=== PATIENT | female | born 1975 | race Caucasian/White ===

== ENCOUNTER → 2020-03-19 09:09 | Outpatient (REF) | payer OTHER, SELFPAY ==
--- NOTE | 2020-03-19 09:15 | CA_ITS ---
Acquisition Time: 2020-03-19 09:30:32 Total Exercise Time: 00:10:01 Test Indications: Dyspnea Medications: SEE H Protocol: EILEEN Max HR: 164 BPM 92% of Pred: 178 BPM Max BP: 138/068 mmHG Max Work Load: 11.7 METS Exercsie stress test using Eileen protocol, total of 10 min 1 sec. METS 11.7. Tolerated well, denies any anginal sx. EKG without any arrhythmias, no ischemic changes. Normotensive response to exercise. Test reviewed with Dr. Casiano Referred By: Devendra Casiano Overread By: Apolonia Otoole
--- NOTE | 2020-03-19 14:00 | CA_ITS ---
Transthoracic Echocardiogram Patient (Last, First, Middle): Valery Morales, Gender: Female Date of : 1975 Age: 44 Procedure Date: 03/19/2020 Procedure Type: Transthoracic Echocardiogram Location: OP Height: 162.56 cm Weight: 57.61 kg BSA: 1.61 m2 Heart Rate: bpm BP: 110 / 70 mmHg Fleet Sales Associate: CELENA Referring MD: Devendra Casiano MD Symptoms: RO7.2 Precordial Chest pain,R06.02 Shortness of breath Study Quality: Good ECG Rhythm: Sinus Conclusions: - The left ventricular systolic function is low normal. The visually estimated ejection fraction is between 50-55%. - No obvious valvular pathology seen on this study. Findings Left Ventricle Normal left ventricular cavity size. There is normal left ventricular wall thickness. The left ventricular systolic function is low normal. The visually estimated ejection fraction is between 50-55%. There is no evidence of regional wall motion abnormalities. Diastolic function is normal for age. Right Ventricle Normal right ventricular cavity size and systolic function. Atria Both atria are normal in size. Aortic Valve There is a normal trileaflet aortic valve. There is no aortic valve stenosis. There is no aortic valve regurgitation. Mitral Valve The mitral valve appears normal. There is no mitral valve regurgitation. There is no mitral valve stenosis. Pulmonic Valve The pulmonic valve was not well visualized. Tricuspid Valve Normal tricuspid valve structure. There is trace tricuspid valve regurgitation. The pulmonary artery systolic pressure is normal. Great Vessels The aortic annulus, sinuses of valsalva, and asc aorta are normal in size. Venous The inferior vena cava is normal in size and collapses greater than 50% with inspiration. Pericardium/Pleural There is no evidence of pericardial effusion. Prior Study Comparison No prior study available for comparison. Recommendations, Care & Conclusions No obvious valvular pathology seen on this study. Measurements 2D Linear Measurements IVSd: 0.89 0.6-0.9/0.6-1.0 cm LVIDd: 4.33 3.9-5.3/4.2-5.9 cm LVIDs: 3.23 2.0-3.6 cm LVPWd: 0.73 0.7-1.1 cm Ao Root: 2.86 2.1-3.5 cm LV Mass: 135.37 67-162/88-224 g LVOT Diam: 1.92 3.0+(-)1.3 cm Mitral Valve MV Pk E: 0.82 MV PK A: 0.59 MV Decel Time: 91.36 E/A: 1.39 Decel [place]: 8.95 Aortic Valve AoV Pk Alberto: 1.29 AoV Pk Grad: 6.61 LVOT LVOT Pk Alberto: 1.08 LVOT Mn Alberto: 0.74 LVOT VTI: 0.19 LVOT Pk Grad: 4.66 LVOT Mn Grad: 2.47 LVOT Diam: 1.92 LVOT Area: 2.90 Diastolic Function MV Pk E: 0.82 MV Pk A: 0.59 E/A: 1.39 Tricuspid Valve TR Pk Alberto: 2.17 TR Pk Grad: 18.86 RA Press: 3.00 RVSP: 21.00 Great Vessels Aorta Ao Root-2D: 2.86 2.0-3.7 cm Ao Asc: 2.79 2.1-3.4 cm Ao Arch: 2.37 Updated in Other Vendor System with Status of Final Devendra Casiano MD electronically signed on 03/20/2020 1:56:01 PM with status of Final
== END ==
LOC: HO.CARD 09:09
PROVIDERS: Visit Provider Internal Medicine
DX: R07.2 Precordial pain (principal)
CPT/HCPCS: 93306; 93350

== ENCOUNTER → 2020-04-02 14:24 | Outpatient (BNVA) | payer OTHER, SELFPAY | PROVIDERS: PCP Internal Medicine; Referring Provider Internal Medicine; Visit Provider Internal Medicine | DX: Z76.89 Persons encountering health services in other specified circumstances (principal) ==

== ENCOUNTER 2020-04-28 14:57 | Outpatient (REF) | payer OTHER, SELFPAY ==
[2020-04-28 16:35] LABS: Glucose Urine UA NEG (NEG); Leukocyte Esterase Urine NEG (NEG); Nitrite Urine NEG (NEG); Specific Gravity - Urine >= 1.030 (1.005-1.025); Urine Blood 2+ (NEG); Urine Ketones NEG (NEG); Urine Protein TRACE MG/DL (NEG-TRACE)
[2020-04-28 16:36] LABS: Appearance Urine CLOUDY; Color Urine YELLOW
[2020-04-28 16:45] LABS: Bacteria Urine TRACE /LPF; Mucus Urine TRACE /LPF; Squamous Epithelial Cell Urine TRACE /LPF
== END 2020-04-28 14:58 | disposition home or self-care (01) ==
LOC: HO.HMGCLDS 14:57
PROVIDERS: PCP Internal Medicine; Visit Provider Internal Medicine
DX: R30.0 Dysuria (principal)
CPT/HCPCS: 81001

== ENCOUNTER 2020-06-20 07:03 | Outpatient (REF) | payer OTHER, SELFPAY ==
[2020-06-20 11:22] LABS: MANUAL DIFF FLAG NO
[2020-06-20 11:50] LABS: Basophils Percent Auto 0.7 % (0-2); Eosinophils Absolute Auto 0.1 X10*3/uL (0.0-0.4); Eosinophils Percent Auto 2.9 % (0-4); Hematocrit 33.2 % (37-47); Imm Gran Abs Auto 0.01 X10*3/uL (0.00-0.03); Imm Gran Pct Auto 0.2 % (0.0-0.4); Lymphocytes Absolute Auto 1.4 X10*3/uL (1.2-4.9); Lymphocytes Percent Auto 31.3 % (20-40); Mean Corpuscular HGB Conc 30.1 g/dl (31.0-35.0); Mean Corpuscular Hemoglobin 27.1 pg (27.0-33.0); Mean Platelet Volume 10.7 fL (9.4-12.3); Monocytes Absolute Auto 0.3 X10*3/uL (0.1-1.2); Monocytes Percent Auto 6.9 % (2-11); Neutrophils Absolute Auto 2.6 X10*3/uL (2.0-8.3); Platelet Count 312 X10*3/uL (160-400); Red Blood Count 3.69 X10*6/uL (4.20-5.50); Red Cell Distribution Width 14.2 % (11.0-16.0); White Blood Count 4.5 X10*3/uL (4.8-10.8)
[2020-06-20 12:07] LABS: Anion Gap 12 (12-20); Blood Urea Nitrogen 24 mg/dL (9-16); Calcium 8.4 mg/dL (8.4-10.2); Carbon Dioxide 28 mmol/L (22-29); Chloride 106 mmol/L (96-108); Cholesterol 209 mg/dL; Estimated Glomerular Filt Rate > 60; Glucose Fasting 89 mg/dL (60-99); HDL Cholesterol 70 mg/dL; Iron 28 mcg/dL (30-160); LDL Cholesterol Calculated 130 mg/dl; Percent Iron Saturation 7 % (15-50); Potassium 4.5 mmol/l (3.3-5.1); Sodium 141 mmol/L (135-145); Total Iron Binding Capacity 394 mcg/dL (228-428); Triglycerides 46 mg/dL; Unsaturated Iron Binding 366 ug/dL
[2020-06-20 12:35] LABS: Ferritin 3 ng/mL (10-250); TSH reflex Free T4 1.24 mIU/mL (0.32-4.0); Vitamin D 25-OH Total 29.5 ng/mL (>30)
[2020-06-20 14:07] LABS: Glucose Urine UA NEG (NEG); Leukocyte Esterase Urine NEG (NEG); Nitrite Urine NEG (NEG); Specific Gravity - Urine >= 1.030 (1.005-1.025); Urine Blood 3+ (NEG); Urine Ketones NEG (NEG); Urine Protein NEG (NEG-TRACE)
[2020-06-20 14:20] LABS: Appearance Urine TURBID; Color Urine YELLOW
[2020-06-20 14:55] LABS: WBC Urine 0-2 /HPF (0-4)
[2020-06-20 14:56] LABS: Amorphous Sediment Urine 2+ /LPF; Bacteria Urine TRACE /LPF; RBC Urine 0-2 /HPF (0); Squamous Epithelial Cell Urine 3+ /LPF
== END 2020-06-20 07:04 | disposition home or self-care (01) ==
LOC: HO.HMGCLDS 07:03
PROVIDERS: PCP Internal Medicine; Visit Provider Internal Medicine
DX: Z00.01 Encounter for general adult medical examination with abnormal findings (principal); I10 Essential (primary) hypertension; D50.9 Iron deficiency anemia, unspecified; R30.0 Dysuria
CPT/HCPCS: 36415; 80048; 80061; 81001; 81003; 82306; 82728; 83540; 84443; 85025

== ENCOUNTER 2020-09-04 16:20 | Outpatient (REF) | payer OTHER, SELFPAY ==
[2020-09-05 11:45] LABS: Glucose Urine UA NEG (NEG); Leukocyte Esterase Urine NEG (NEG); Nitrite Urine NEG (NEG); PH 5.5 (5.0-8.0); Specific Gravity - Urine >= 1.030 (1.005-1.025); Urine Blood TRACE (NEG); Urine Ketones 5 MG/DL (NEG); Urine Protein NEG (NEG-TRACE)
[2020-09-05 11:47] LABS: Appearance Urine CLOUDY; Color Urine YELLOW
[2020-09-05 12:19] LABS: Bacteria Urine 1+ /LPF; RBC Urine 0-2 /HPF (0); Squamous Epithelial Cell Urine 2+ /LPF
[2020-09-05 12:20] LABS: Oval Fat Bodies Urine NOTED
== END 2020-09-04 16:21 | disposition home or self-care (01) ==
LOC: HO.LAB 16:20
PROVIDERS: Internal Medicine; Visit Provider Nurse Practitioner Family
DX: R30.0 Dysuria (principal)
CPT/HCPCS: 81001; 87086

== ENCOUNTER 2020-12-10 13:34 | Outpatient (REF) | payer OTHER, SELFPAY ==
[2020-12-10 16:21] LABS: MANUAL DIFF FLAG NO
[2020-12-10 16:27] LABS: Glucose Urine UA NEG (NEG); Leukocyte Esterase Urine NEG (NEG); Nitrite Urine NEG (NEG); PH 5.5 (5.0-8.0); Specific Gravity - Urine >= 1.030 (1.005-1.025); Urine Blood NEG (NEG); Urine Ketones NEG (NEG); Urine Protein NEG (NEG-TRACE)
[2020-12-10 16:29] LABS: Basophils Percent Auto 0.3 % (0-2); Eosinophils Absolute Auto 0.1 X10*3/uL (0.0-0.4); Eosinophils Percent Auto 1.3 % (0-4); Hematocrit 32.8 % (37-47); Hemoglobin 9.9 g/dl (12.0-16.0); Imm Gran Abs Auto 0.01 X10*3/uL (0.00-0.03); Imm Gran Pct Auto 0.2 % (0.0-0.4); Immature Retic Fraction 16.8 % (3.0-15.9); Lymphocytes Absolute Auto 1.4 X10*3/uL (1.2-4.9); Lymphocytes Percent Auto 23.2 % (20-40); Mean Corpuscular HGB Conc 30.2 g/dl (31.0-35.0); Mean Corpuscular Hemoglobin 25.8 pg (27.0-33.0); Mean Corpuscular Volume 85.4 fL (80-98); Mean Platelet Volume 10.5 fL (9.4-12.3); Monocytes Absolute Auto 0.3 X10*3/uL (0.1-1.2); Monocytes Percent Auto 5.3 % (2-11); Neutrophils Absolute Auto 4.3 X10*3/uL (2.0-8.3); Neutrophils Percent Auto 69.7 % (45-73); Platelet Count 307 X10*3/uL (160-400); Red Blood Count 3.84 X10*6/uL (4.20-5.50); Red Cell Distribution Width 15.2 % (11.0-16.0); Retic HGB Equivalent 27.9 pg (30.0-35.0); Reticulocyte Percent 1.3 % (0.5-1.8); Reticulocytes Absolute 0.049 X10*6/uL (0.026-0.095); White Blood Count 6.2 X10*3/uL (4.8-10.8)
[2020-12-10 16:32] LABS: Appearance Urine CLEAR; Color Urine YELLOW
[2020-12-10 16:52] LABS: Alanine Aminotransferase 14 U/L (0-31); Albumin Level 4.2 g/dL (3.5-5.0); Alkaline Phosphatase 61 U/L (39-117); Anion Gap 14 (12-20); Aspartate Amino Transferase 15 U/L (5-31); Bilirubin Total 0.3 mg/dL (0.0-1.0); Blood Urea Nitrogen 24 mg/dL (9-16); Calcium 9.5 mg/dL (8.4-10.2); Carbon Dioxide 24 mmol/L (22-29); Chloride 105 mmol/L (96-108); Estimated Glomerular Filt Rate > 60; Glucose Random 140 mg/dL (60-115); Iron 29 mcg/dL (30-160); Percent Iron Saturation 7 % (15-50); Potassium 4.1 mmol/L (3.3-5.1); Sodium 139 mmol/L (135-145); Total Iron Binding Capacity 416 mcg/dL (228-428); Unsaturated Iron Binding 387 ug/dL
[2020-12-10 17:14] LABS: Ferritin 4 ng/mL (10-250); TSH reflex Free T4 0.81 uIU/mL (0.32-4.0); Vitamin D 25-OH Total 39.3 ng/mL (>30)
[2020-12-10 17:18] LABS: Vitamin B12 617 pg/mL (200-900)
== END 2020-12-10 13:35 | disposition home or self-care (01) ==
LOC: HO.HMGCLDS 13:34
PROVIDERS: PCP Internal Medicine; Visit Provider Nurse Practitioner Family
DX: R53.83 Other fatigue (principal)
CPT/HCPCS: 36415; 80053; 81003; 82306; 82607; 82728; 83540; 84443; 85025; 85045

== ENCOUNTER → 2021-02-10 14:19 | Outpatient (BNVA) | payer OTHER, SELFPAY | PROVIDERS: PCP Internal Medicine | DX: R32 Unspecified urinary incontinence (principal) | CPT/HCPCS: 51798 ==

== ENCOUNTER → 2021-03-11 12:39 | Outpatient (BNVA) | payer OTHER, SELFPAY | PROVIDERS: PCP Internal Medicine ==

== ENCOUNTER 2021-09-03 09:33 | Outpatient (REF) | payer OTHER, SELFPAY ==
[2021-09-03 11:18] LABS: MANUAL DIFF FLAG NO
[2021-09-03 11:30] LABS: Basophils Percent Auto 0.4 % (0-2); Eosinophils Absolute Auto 0.1 X10*3/uL (0.0-0.4); Eosinophils Percent Auto 1.2 % (0-4); Hematocrit 32.3 % (37.0-47.0); Hemoglobin 9.6 g/dl (12.0-16.0); Imm Gran Abs Auto 0.01 X10*3/uL (0.00-0.03); Imm Gran Pct Auto 0.2 % (0.0-0.4); Lymphocytes Absolute Auto 1.1 X10*3/uL (1.2-4.9); Lymphocytes Percent Auto 20.8 % (20-40); Mean Corpuscular HGB Conc 29.7 g/dl (31.0-35.0); Mean Corpuscular Hemoglobin 24.8 pg (27.0-33.0); Mean Corpuscular Volume 83.5 fL (80.0-98.0); Mean Platelet Volume 10.7 fL (9.4-12.3); Monocytes Absolute Auto 0.4 X10*3/uL (0.1-1.2); Monocytes Percent Auto 7.7 % (2-11); Neutrophils Absolute Auto 3.5 x10*3/uL (2.0-8.3); Neutrophils Percent Auto 69.7 % (45-73); Platelet Count 322 X10*3/uL (160-400); Red Blood Count 3.87 X10*6/uL (4.20-5.50); Red Cell Distribution Width 16.2 % (11.0-16.0)
[2021-09-03 12:10] LABS: Ferritin 7 ng/mL (10-250)
[2021-09-03 12:15] LABS: Alanine Aminotransferase 16 U/L (0-31); Alkaline Phosphatase 49 U/L (39-117); Aspartate Amino Transferase 14 U/L (5-31); Bilirubin Direct < 0.2 mg/dL (0.0-0.5); Bilirubin Total 0.2 mg/dL (0.0-1.0); Lipase 17 U/L (8-78); Total Protein 6.8 g/dL (6.5-8.0)
[2021-09-03 12:27] LABS: Iron 27 mcg/dL (30-160); Percent Iron Saturation 7 % (15-50); Total Iron Binding Capacity 410 mcg/dL (228-428); Unsaturated Iron Binding 383 ug/dL
== END 2021-09-03 09:34 | disposition home or self-care (01) ==
LOC: HO.HMGCLDS 09:33
PROVIDERS: Internal Medicine; Visit Provider Internal Medicine
DX: R10.11 Right upper quadrant pain (principal); R10.12 Left upper quadrant pain; D50.9 Iron deficiency anemia, unspecified
CPT/HCPCS: 36415; 80076; 82728; 83540; 83690; 85025

== ENCOUNTER 2021-09-07 13:23 | Day surgery (SDC) | payer OTHER, SELFPAY ==
--- NOTE | 2021-09-04 09:45 | HO.ANESPROP2 ---
Documented by User: Sarika Scott NP 09/04/21 09:46 HPI - Anesthesia Eval Consult details Narrative: 45yo F for Upper Endoscopy PMFSH Active Problems Active Problems: All Active Problems (Updated 02/10/21 @ 16:29 by ELO Becerril) Urinary incontinence (Acute) Fatigue (Acute) Dysuria (Acute) Recurrent major depression in remission (Acute) Annual visit for general adult medical examination with abnormal findings (Acute) Vitamin D deficiency (Acute) Iron deficiency anemia (Acute) SOB (shortness of breath) (Acute) Precordial chest pain (Acute) Past Medical History Medical History Annual visit for general adult medical examination with abnormal findings Iron deficiency anemia Recurrent major depression in remission Urinary incontinence Vitamin D deficiency Family History Family History Father Bipolar 1 disorder High cholesterol Diabetes mellitus Mother No problems noted. Surgical History Surgical History History of loop electrical excision procedure (LEEP) Social History Social History Alcohol intake: current Patient Tobacco Use Status: Never used Tobacco Are you DNR?: No Advance Directives: No Advance Directives Information Provided: Yes Patient : No Meds Allergies Allergy/AdvReac Type Severity Reaction Status Date / Time tree nut Allergy Severe Anaphylaxis Verified 09/02/21 11:22 hyoscyamine Allergy Intermediate itchy Verified 09/02/21 11:22 throat/ears/nose Home Medications Medication Instructions Recorded Confirmed Last Taken Type aripiprazole 2 mg tablet 2 mg PO DAILY 04/02/20 09/02/21 09/07/21 History bupropion HCl 300 mg 24 hr tablet, 300 mg PO DAILY 04/02/20 09/02/21 09/07/21 History extended release fluoxetine 20 mg capsule 20 mg PO DAILY 04/02/20 09/02/21 09/07/21 History lamotrigine 25 mg tablet mg PO 06/26/20 12/02/20 Unknown History lamotrigine 100 mg tablet 100 mg PO DAILY 02/10/21 09/02/21 09/07/21 History Exam Exam Date and Time: September 04, 2021 3531 Narrative Narrative: ECHO 03/2020 Conclusions: - The left ventricular systolic function is low normal.? The ? ? visually estimated ejection fraction is between 50-55%.? - No obvious valvular pathology seen on this study.? Stress 03/2020 Protocol: CHANO ? Max HR: 164 BPM? 92% of? Pred: 178 BPM Max BP: 138/068 mmHG Max Work Load: 11.7 METS ? Exercsie stress test using Chano protocol, total of 10 min 1 sec.? METS 11.7. ?Tolerated well, denies any anginal sx.? EKG without any arrhythmias, no ?ischemic changes.? Normotensive response to exercise.? Test reviewed with Dr. Conti Assessment and Plan Assessment Anesthesia Assessment: Chart Reviewed Documented by User: Joe Paiz MD 09/07/21 21:18 HPI - Anesthesia Eval Consult details Narrative: 45yo F for Upper Endoscopy stress test year ago , no ischemia PMFSH Past Medical History Medical History Annual visit for general adult medical examination with abnormal findings Iron deficiency anemia Recurrent major depression in remission Urinary incontinence Vitamin D deficiency Functional capacity: independent ambulation Family History Family History Father Bipolar 1 disorder High cholesterol Diabetes mellitus Mother No problems noted. Family history of problems with anesthesia: No Surgical History Surgical History History of loop electrical excision procedure (LEEP) History of Problems with Anesthesia: No Social History Social History Alcohol intake: current Patient Tobacco Use Status: Never used Tobacco Are you DNR?: No Advance Directives: No Advance Directives Information Provided: Yes Patient : No Meds Allergies Allergy/AdvReac Type Severity Reaction Status Date / Time tree nut Allergy Severe Anaphylaxis Verified 09/02/21 11:22 hyoscyamine Allergy Intermediate itchy Verified 09/02/21 11:22 throat/ears/nose Home Medications Medication Instructions Recorded Confirmed Last Taken Type aripiprazole 2 mg tablet 2 mg PO DAILY 04/02/20 09/02/21 09/07/21 History bupropion HCl 300 mg 24 hr tablet, 300 mg PO DAILY 04/02/20 09/02/21 09/07/21 History extended release fluoxetine 20 mg capsule 20 mg PO DAILY 04/02/20 09/02/21 09/07/21 History lamotrigine 25 mg tablet mg PO 06/26/20 12/02/20 Unknown History lamotrigine 100 mg tablet 100 mg PO DAILY 02/10/21 09/02/21 09/07/21 History Exam Airway Mallampati Class: II TM Dist: >3cm Neck ROM: Full Loose/Missing/Broken Teeth: Yes (Crowns ) Heart: rrr Lungs: b/l breath sounds Assessment and Plan Assessment Anesthesia Assessment: Anesthesia Plan Discussed Final Anesthetic Review Family History of Problems with Anesthesia: No History of Problems with Anesthesia: No NPO: Yes ASA Class: II Final Preanesthetic Review: Meds/Allgs Chart Reviewed, Consent Obtained/Reviewed and Anes Risks/Benef Reviewed Patient Risk: Intermediate Procedure Risk: Intermediate Anesthetic Plan Anesthetic Plan: MAC: Disposition: Standard PACU
[2021-09-07 10:29] VITALS: BMI 25.9
[2021-09-07 13:33] VITALS: BP 126/78; PULSE 78; RESP 17; TEMP 36.1; O2SAT 99
[2021-09-07 13:54] LABS: UPreg QC Valid YES; Urine Pregnancy NEGATIVE (NEGATIVE)
[2021-09-07] MEDS: Lactated Ringers 1,000 ML 100 ML IVCONT (13:58)
[2021-09-07 16:01] VITALS: BP 100/56; PULSE 104; RESP 12; TEMP 36.2; O2SAT 92
--- NOTE | 2021-09-07 16:02 | PM.OP ---
Brief Operative Note Date of Service: 09/07/21 Pre-op diagnosis: Abdominal pain Post-op diagnosis: other (Small hiatal hernia) Procedure: EGD with biopsies Surgeon: Leo Blandon Anesthesia: MAC Was an Maori Liaison Adviser used for this Procedure?: No Estimated blood loss (mL): 2.0 Pathology: other (A. Descending duodenum B. Gastric antrum) Condition: stable Disposition: PACU
[2021-09-07 16:16] VITALS: BP 107/69; PULSE 101; RESP 16; O2SAT 100
[2021-09-07 16:31] VITALS: BP 128/81; PULSE 94; RESP 20; TEMP 37.4; O2SAT 97
--- NOTE | 2021-09-08 02:11 | OP_ITS ---
SURGEON: Leo Blandon MD INDICATIONS: The patient presents for evaluation of abdominal pain. Full consent has been obtained from her for this, including risks of bleeding and perforation. PREOPERATIVE DIAGNOSIS: Abdominal pain. POSTOPERATIVE DIAGNOSIS: Abdominal pain, small hiatal hernia, rule out celiac disease, rule out gastritis, and/or Helicobacter pylori. PROCEDURE PERFORMED: Esophagogastroduodenoscopy with biopsies. ESTIMATED BLOOD LOSS: COMPLICATIONS: ANESTHESIA: Medication used, monitored anesthesia care. ASSISTANTS: SPECIMENS: DESCRIPTION OF PROCEDURE: The patient was placed in the left lateral decubitus position. The Olympus video gastroscope was passed in the posterior oropharynx and upper esophagus under direct vision. The scope was passed slowly to the distal esophagus. The gastroesophageal junction appeared normal at 38 cm. There was no sign of any esophagitis nor [place] mucosa. The scope entered into the stomach. There was a small hiatal hernia. The scope was advanced to pylorus, and the duodenum was cannulated to the descending portion. The duodenum including the bulb appeared normal without mass or ulceration. Biopsies were obtained from the 2nd and the 3rd portions of duodenum. The scope was withdrawn back into the stomach. The gastric antrum and body appeared normal with good peristalsis. Biopsies were obtained. The scope was retroflexed visualizing the proximal stomach carefully, which appeared normal, without any sign of mass or ulceration. The scope was straightened. The scope was withdrawn back to the esophagus. The esophageal mucosa appeared normal. The scope was withdrawn from the patient. She tolerated the procedure well and was returned to the recovery area in stable condition. IMPRESSION: Small hiatal hernia, otherwise normal upper endoscopy. Rule out celiac disease, rule out gastritis and H pylori. PLAN: The results of the biopsy will be checked. At this point, I did not see anything that would account for her recent episode of abdominal pain. She is scheduled for an abdominal ultrasound next week. Recent laboratories including a liver profile, CBC, and lipase were normal. She will be seen in followup after the ultrasound for further evaluation. This has been discussed with her . MD CLOVIS Sagastume/SEKOU / [id number] MTDD
== END 2021-09-07 16:51 | disposition home or self-care (01) ==
PROVIDERS: Nurse Practitioner; Visit Provider Internal Medicine
PROC: 0DJ08ZZ Inspection of Upper Intestinal Tract, Via Natural or Artificial Opening Endoscopic (ICD-10-PCS; CPT 43235; principal; 2021-09-07 14:30)
DX: R10.13 Epigastric pain (principal); K44.9 Diaphragmatic hernia without obstruction or gangrene; D50.9 Iron deficiency anemia, unspecified; E55.9 Vitamin D deficiency, unspecified; Z79.899 Other long term (current) drug therapy
CPT/HCPCS: 43239; 81025; 88305; 88342; J2250

== ENCOUNTER 2021-09-17 08:07 | Outpatient (REF) | payer OTHER, SELFPAY ==
--- NOTE | ~2021-09-17 | US_ITS ---
EXAMINATION: US ABDOMEN COMPLETE CLINICAL INFORMATION: Right upper quadrant pain. COMPARISON: None TECHNIQUE: Real-time imaging of the abdominal viscera. FINDINGS: PANCREAS: Normal. ABDOMINAL AORTA: The proximal, mid, and distal segments are normal in caliber. INFERIOR VENA CAVA: Visualized portions are normal. LIVER: The liver appears coarse and heterogeneous. The liver is normal in size. The liver contour is normal. Parenchymal echogenicity is normal. No focal hepatic lesion. There is no intrahepatic biliary duct dilatation seen. Normal upper pedal flow seen right portal vein. GALLBLADDER: Normal. The gallbladder is physiologically distended without evidence of stones, sludge, polyps, wall thickening or pericholecystic fluid. COMMON BILE DUCT: Normal in caliber measuring 0.2 cm in diameter. RIGHT KIDNEY: There is mild pelvic fullness.. No renal calculi or focal parenchymal lesions. The kidney measures 9.9 cm in maximum dimension. LEFT KIDNEY: Normal. No hydronephrosis. No renal calculi or focal parenchymal lesions. The kidney measures 9.7 cm in maximum dimension. SPLEEN: Normal. The spleen measures 9.0 cm in maximum dimension. FREE FLUID: None. US/US abdomen complete IMPRESSION: Coarse, echogenic and heterogeneous liver but no focal lesion seen. Mild right renal pelvic fullness. Rest of the abdominal ultrasound is unremarkable.
== END 2021-09-17 08:08 | disposition home or self-care (01) ==
LOC: HO.US 08:07
PROVIDERS: Visit Provider Internal Medicine
DX: R10.11 Right upper quadrant pain (principal)
CPT/HCPCS: 76700

== ENCOUNTER 2021-10-08 11:16 | Outpatient (REF) | payer OTHER, SELFPAY ==
[2021-10-08 12:47] LABS: Prothrombin Time 11.9 SEC (9.9-13.0)
[2021-10-13 17:32] LABS: FIB-ALT 13 U/L (6-29); FIB-Alpha-2-Macroglobulin 166 mg/dL (106-279); FIB-Apolipoprotein A1 186 mg/dL (101-198); FIB-GGT 9 U/L (3-55); FIB-Haptoglobin 124 mg/dL (43-212); FIB-Total Bilirubin 0.2 mg/dL (0.2-1.2); Liver Fibrosis Score 0.02; Liver Fibrosis Stage F0; Nec Inflam Act Grade A0; Nec Inflam Act Score 0.03
== END 2021-10-08 11:17 | disposition home or self-care (01) ==
LOC: HO.HMGCLDS 11:16
PROVIDERS: PCP Internal Medicine; Visit Provider Internal Medicine
DX: R93.2 Abnormal findings on diagnostic imaging of liver and biliary tract (principal)
CPT/HCPCS: 36415; 81596; 85610

== ENCOUNTER 2021-10-20 10:01 | Outpatient (REF) | payer OTHER, SELFPAY ==
--- NOTE | ~2021-10-20 | US_ITS ---
EXAMINATION: US ABDOMEN LIMITED WITH LIVER ELASTOGRAPHY CLINICAL INFORMATION: Abnormal hepatic ultrasound COMPARISON: September 17, 2021 TECHNIQUE: Real-time imaging of the abdominal viscera. Noninvasive ultrasound liver fibrosis assessment is performed using Faisal ElastPQ point quantification shear wave elastography (2D-SWE) with a C5-2 MHz transducer. Multiple elastography samples are obtained. FINDINGS: PANCREAS: Normal. The visualized pancreatic head and body are normal in appearance. The remainder of the pancreas is obscured from visualization by the overlying bowel gas. LIVER: There is question of some mild coarsening of the echogenicity of the parenchyma which can be seen in hepatocellular disease.. No focal mass or intrahepatic bile duct dilatation is seen. The right lobe measures 15.0 cm in length. The left lobe measures 11.3 cm in length. Portal flow is hepatopedal Shear wave liver elastography median stiffness is 1.18 m/s (reference: normal median stiffness is 1.3 m/s or less). IQR/median stiffness to assess sampling precision is 0.03 (reference: good quality data set is IQR/median stiffness of 0.15 or less). GALLBLADDER: Normal. The gallbladder is physiologically distended without evidence of stones, sludge, polyps, wall thickening or pericholecystic fluid. COMMON BILE DUCT: Normal in caliber measuring 0.2 cm in diameter. RIGHT KIDNEY: Normal. No renal calculi or focal parenchymal lesions. There is mild pelvic fullness but without caliectasis. The kidney measures 10.5 cm in maximum dimension. FREE FLUID: None. US/US abdomen marcum w elastography IMPRESSION: 1. No significant abnormality appreciated other than some question mild coarsening of hepatic echotexture. 2. Liver elastography: Measurements are consistent with a high probability of normal liver stiffness. REFERENCE: Society of Radiologists in Ultrasound Liver Stiffness Thresholds (2020): LIVER STIFFNESS THRESHOLDS: *Liver Stiffness equal or less than 1.3 m/s: High probability of being normal. *Liver Stiffness less than 1.7 m/s: In the absence of other known clinical signs, rules out compensated advanced chronic liver disease. *Liver Stiffness 1.7-2.1 m/s: Suggestive of compensated advanced chronic liver disease but need further test for confirmation. *Liver Stiffness over 2.1 m/s: Rules in compensated advanced chronic liver disease. *Liver Stiffness over 2.4 m/s: Suggestive of clinically significant portal hypertension. QUALITY OF DATA SET: *IQR/Median value equal or less than 0.15 implies a quality data set. *IQR/Median value over 0.15 implies a poor quality data set. SIGNIFICANT CHANGE FROM PRIOR EXAM: Significant change if liver stiffness measurement is 10% or greater from prior exam. OTHER CONSIDERATIONS: The stage of liver fibrosis may be overestimated in the setting of acute hepatitis, liver inflammation, elevated liver function tests, hepatic vascular congestion, obstructive cholestasis, non-fasting state, and infiltrative diseases such as amyloidosis and lymphoma. In some patients with NAFLD, the liver stiffness thresholds for compensated advanced chronic liver disease may be lower. In causes other than viral hepatitis and NAFLD, liver stiffness thresholds are not well established.
== END 2021-10-20 10:02 | disposition home or self-care (01) ==
LOC: HO.US 10:01
PROVIDERS: Visit Provider Internal Medicine
DX: R93.2 Abnormal findings on diagnostic imaging of liver and biliary tract (principal)
CPT/HCPCS: 76705; 76981

== ENCOUNTER → 2021-10-22 09:28 | Outpatient (BNVA) | payer OTHER, SELFPAY | PROVIDERS: PCP Internal Medicine | DX: R32 Unspecified urinary incontinence (principal) | CPT/HCPCS: 51798 ==

== ENCOUNTER 2021-11-16 09:44 | Outpatient (REF) | payer OTHER, SELFPAY ==
[2021-11-16 11:18] LABS: Prothrombin Time 11.3 SEC (9.9-13.0)
== END 2021-11-16 09:45 | disposition home or self-care (01) ==
LOC: HO.LAB 09:44
PROVIDERS: PCP Internal Medicine; Visit Provider Internal Medicine
DX: R93.2 Abnormal findings on diagnostic imaging of liver and biliary tract (principal)
CPT/HCPCS: 36415; 85610

== ENCOUNTER 2022-04-21 10:54 | Outpatient (REF) | payer OTHER, SELFPAY | END 2022-04-21 10:55 | disposition home or self-care (01) | LOC: HO.LAB 10:54 | PROVIDERS: PCP Internal Medicine; Visit Provider Urology | DX: N39.0 Urinary tract infection, site not specified (principal); N32.81 Overactive bladder | CPT/HCPCS: 51798; 87086; 87088; 87186 ==

== ENCOUNTER 2022-05-05 09:31 | Outpatient (REF) | payer OTHER, SELFPAY ==
[2022-05-05 13:52] LABS: Appearance Urine Clear; Color Urine Yellow; Glucose Urine UA Negative (Negative); Leukocyte Esterase Urine Negative (Negative); Nitrite Urine Negative (Negative); Specific Gravity - Urine 1.025 (1.005-1.025); Urine Blood Negative (Negative); Urine Ketones Negative (Negative); Urine Protein Negative (Neg-Trace)
[2022-05-05 13:57] LABS: Bacteria Urine Trace (None Seen); Hyaline Casts Urine 0-2 /LPF (0-2); RBC Urine 0-2 /HPF (0-2); WBC Urine 0-5 /HPF (0-5)
== END 2022-05-05 09:32 | disposition home or self-care (01) ==
LOC: HO.HMGCLDS 09:31
PROVIDERS: PCP Internal Medicine; Visit Provider Urology
DX: N39.0 Urinary tract infection, site not specified (principal)
CPT/HCPCS: 81001; 87086

== ENCOUNTER 2022-07-02 12:39 | Outpatient (REF) | payer OTHER, SELFPAY | END 2022-07-02 12:40 | disposition home or self-care (01) | LOC: HO.LAB 12:39 | PROVIDERS: PCP Internal Medicine; Visit Provider Urology | DX: N39.0 Urinary tract infection, site not specified (principal) | CPT/HCPCS: 87086; 87088; 87186 ==

== ENCOUNTER → 2022-07-16 14:54 | Outpatient (BNVA) | payer OTHER, SELFPAY | PROVIDERS: PCP Internal Medicine; Visit Provider Urology | DX: N32.81 Overactive bladder (principal) | CPT/HCPCS: 52287; J0585 ==

== ENCOUNTER → 2022-07-30 10:22 | Outpatient (BNVA) | payer OTHER, SELFPAY | PROVIDERS: PCP Internal Medicine; Visit Provider Urology | DX: N39.0 Urinary tract infection, site not specified (principal) | CPT/HCPCS: 51798 ==

== ENCOUNTER 2022-08-18 09:29 | Outpatient (REF) | payer OTHER, SELFPAY ==
[2022-08-18 11:17] LABS: Appearance Urine Clear; Color Urine Yellow; Glucose Urine UA Negative (Negative); Leukocyte Esterase Urine Moderate (2+) (Negative); Nitrite Urine Negative (Negative); UMIC TRIGGER UA YES; Urine Blood Negative (Negative); Urine Ketones Negative (Negative); Urine Protein Negative (Neg-Trace)
[2022-08-18 11:22] LABS: Bacteria Urine 3+ (None Seen); Hyaline Casts Urine 0-2 /LPF (0-2); RBC Urine 0-2 /HPF (0-2); WBC Urine >50 /HPF (0-5)
== END 2022-08-18 09:30 | disposition home or self-care (01) ==
LOC: HO.HMGCLDS 09:29
PROVIDERS: PCP Internal Medicine; Visit Provider Urology
DX: N39.0 Urinary tract infection, site not specified (principal)
CPT/HCPCS: 81001; 87086

== ENCOUNTER → 2022-10-27 09:38 | Outpatient (BNVA) | payer OTHER, SELFPAY | PROVIDERS: PCP Internal Medicine; Visit Provider Urology | DX: N32.81 Overactive bladder (principal); N39.0 Urinary tract infection, site not specified | CPT/HCPCS: 51798 ==

== ENCOUNTER → 2022-12-01 13:21 | Outpatient (BNVA) | payer OTHER, SELFPAY | PROVIDERS: Visit Provider Urology | DX: N32.81 Overactive bladder (principal); N39.0 Urinary tract infection, site not specified | CPT/HCPCS: 51700; 51701; 52000; 52287; J0585 ==

== ENCOUNTER → 2022-12-30 09:00 | Outpatient (BNVA) | payer OTHER, SELFPAY | PROVIDERS: PCP Internal Medicine; Visit Provider Urology | DX: N32.81 Overactive bladder (principal); N39.0 Urinary tract infection, site not specified | CPT/HCPCS: 51798 ==

== ENCOUNTER 2022-12-31 11:52 | Outpatient (REF) | payer OTHER, SELFPAY ==
[2022-12-31 12:11] LABS: MANUAL DIFF FLAG NO
[2022-12-31 12:48] LABS: Basophils Percent Auto 0.4 % (0-2); Eosinophils Absolute Auto 0.1 X10*3/uL (0.0-0.4); Eosinophils Percent Auto 2.9 % (0-4); Hematocrit 31.1 % (37.0-47.0); Hemoglobin 8.7 g/dl (12.0-16.0); Imm Gran Abs Auto 0.01 X10*3/uL (0.00-0.03); Imm Gran Pct Auto 0.2 % (0.0-0.4); Lymphocytes Absolute Auto 1.3 X10*3/uL (1.2-4.9); Lymphocytes Percent Auto 27.2 % (20-40); Mean Corpuscular Hemoglobin 21.3 pg (27.0-33.0); Mean Corpuscular Volume 76.2 fL (80.0-98.0); Mean Platelet Volume 9.7 fL (9.4-12.3); Monocytes Absolute Auto 0.3 X10*3/uL (0.1-1.2); Monocytes Percent Auto 6.7 % (2-11); Neutrophils Absolute Auto 3.1 x10*3/uL (2.0-8.3); Neutrophils Percent Auto 62.6 % (45-73); Platelet Count 422 X10*3/uL (160-400); Red Blood Count 4.08 X10*6/uL (4.20-5.50); Red Cell Distribution Width 16.7 % (11.0-16.0); White Blood Count 4.9 X10*3/uL (4.8-10.8)
[2022-12-31 13:31] LABS: Alanine Aminotransferase 16 U/L (0-31); Albumin Level 4.2 g/dL (3.5-5.0); Alkaline Phosphatase 54 U/L (39-117); Anion Gap 12 (12-20); Aspartate Amino Transferase 16 U/L (5-31); Bilirubin Direct < 0.2 mg/dL (0.0-0.5); Bilirubin Total 0.2 mg/dL (0.0-1.0); Blood Urea Nitrogen 15 mg/dL (9-16); C Reactive Protein 0.32 mg/dL (< or = 0.50); Calcium 8.9 mg/dL (8.4-10.2); Carbon Dioxide 24 mmol/L (22-29); Chloride 105 mmol/L (96-108); Estimated Glomerular Filt Rate > 60; Glucose Random 84 mg/dL (60-115); Lipase 19 U/L (8-78); Potassium 3.8 mmol/L (3.3-5.1); Sodium 137 mmol/L (135-145); Total Protein 7.1 g/dL (6.5-8.0)
[2022-12-31 13:34] LABS: Erythrocyte Sedimentation Rate 13 MM/HR (0-20)
[2022-12-31 14:12] LABS: Amylase 51 U/L (28-100)
== END 2022-12-31 11:53 | disposition home or self-care (01) ==
LOC: HO.LAB 11:52
PROVIDERS: PCP Internal Medicine; Visit Provider Internal Medicine
DX: R10.84 Generalized abdominal pain (principal); R19.7 Diarrhea, unspecified
CPT/HCPCS: 36415; 80048; 80076; 82150; 83690; 85025; 85652; 86140

== ENCOUNTER 2023-01-03 09:28 | Outpatient (REF) | payer OTHER, SELFPAY ==
[2023-01-04 12:52] LABS: Leukocytes Stool Qualitative NEGATIVE (NEGATIVE)
[2023-01-05 09:20] LABS: Adenovirus F 40/41 Not Detected (Not Detect.); Astrovirus Not Detected (Not Detect.); Campylobacter Not Detected (Not Detect.); Cryptosporidium Not Detected (Not Detect.); Cyclospora cayetanensis Not Detected (Not Detect.); E. coli EAEC Not Detected (Not Detect.); E. coli EPEC Not Detected (Not Detect.); E. coli ETEC Not Detected (Not Detect.); E. coli STEC Not Detected (Not Detect.); Entamoeba histolytica Not Detected (Not Detect.); Giardia lamblia Not Detected (Not Detect.); Plesiomonas shigelloides Not Detected (Not Detect.); Salmonella Not Detected (Not Detect.); Shigella sp./EIEC Not Detected (Not Detect.); Vibrio Not Detected (Not Detect.); Vibrio Cholerae Not Detected (Not Detect.); Yersinia enterocolitica Not Detected (Not Detect.)
[2023-01-05 09:21] LABS: Rotavirus A Not Detected (Not Detect.); Sapovirus Not Detected (Not Detect.)
[2023-01-05 09:25] LABS: Norovirus GI/GII Detected (Not Detect.)
[2023-01-11 00:48] LABS: Calprotectin, Fecal 96 mcg/g
== END 2023-01-03 09:29 | disposition home or self-care (01) ==
LOC: HO.LNP 09:28
PROVIDERS: Visit Provider Internal Medicine
DX: R19.7 Diarrhea, unspecified (principal); R10.84 Generalized abdominal pain
CPT/HCPCS: 83993; 87493; 87507; 89055

== ENCOUNTER 2023-01-04 09:11 | Outpatient (REF) | payer OTHER, SELFPAY | END 2023-01-04 09:12 | disposition home or self-care (01) | LOC: HO.LNP 09:11 | PROVIDERS: Visit Provider Internal Medicine | DX: Z13.89 Encounter for screening for other disorder (principal) ==

== ENCOUNTER 2023-04-07 10:04 | Outpatient (REF) | payer OTHER, SELFPAY | END 2023-04-07 10:05 | disposition home or self-care (01) | LOC: HO.LAB 10:04 | PROVIDERS: PCP Internal Medicine; Visit Provider Urology | DX: N39.0 Urinary tract infection, site not specified (principal); N32.81 Overactive bladder | CPT/HCPCS: 51798; 81003; 87086 ==

== ENCOUNTER 2023-04-07 10:04 | Outpatient (AMB) | payer OTHER, SELFPAY ==
--- NOTE | 2023-04-07 10:05 | MHC.OFFVIS ---
Intake Intake Visit Reasons: Botox follow-up Intake Note: Patient presents today for a follow-up on Botox: Meds- Botox, Macrobis & Nitro Allergies to Antibiotic- No Known Allergies Blood Thinner- None PVR- 34 mL Executive Consultant Required: No Accompanied by: Self / Same As Patient Allergies tree nut Allergy (Severe, Verified 04/07/23 10:06) Anaphylaxis hyoscyamine Allergy (Intermediate, Verified 04/07/23 10:06) itchy throat/ears/nose HPI HPI Comments History of Present Illness Details Valery is a 47-year-old female who presents today to the office for a follow-up. 04/07/2023? She is being followed due to overactive bladder. She has been receiving bladder Botox injection in the office. Her last bladder Botox injection 100 units was on 12/01/2022. She states that within the last couple of days she is experiencing more urinary urgency and she wants to get repeat bladder botox injection scheduled. She is prescribed macrobid prophylaxis post sexual intercourse for recurrent UTI's. Bladder scan PVR. 34 mL 04/07/2023: Plan: Will send urine surveillance for culture. Continue Macrobid 100 mg to take after intercourse. We will get authorization for in office bladder Botox injection 100 units. Ordered Bactrim DS and advised the patient to start 2 days before the procedure. Ordered Pyridium 200 mg and advised the patient to start one day before the procedure. [facility] Medical History History of abnormal uterine bleeding Urinary incontinence Recurrent major depression in remission Annual visit for general adult medical examination with abnormal findings Vitamin D deficiency Iron deficiency anemia Surgical History Hx of cystoscopy History of hysteroscopy History of loop electrical excision procedure (LEEP) Family History Father Bipolar 1 disorder High cholesterol Diabetes mellitus Mother No problems noted. Social History Housing: House Alcohol intake: current Patient Tobacco Use Status: Never used Tobacco e-Cigarette/Vaping Use: Never Used Current occupational status: unemployed Cognitive needs: No Hearing needs: No Vision needs: No Review of Systems Const All systems reviewed & are unremarkable except as noted in HPI and below Reports no additional complaints Eyes Reports no additional complaints ENT Reports no additional complaints Card Denies dyspnea Resp Denies cough and Denies dyspnea GI Reports no additional complaints Reports no additional complaints Musc Reports no additional complaints Skin/Breast Denies rash and Denies unusual bruising Neuro Reports no additional complaints Psych Reports no additional complaints Endo Reports no additional complaints Brandon/Lymph Reports no additional complaints Aller/Immun Reports no additional complaints Office Procedures Post Void Residual Post Residual Void Post Void Residual (PVR): 34 [id number] Void Residual by ultrasound Results AMB Urinalysis, Automated UA Leukoctes 0 Ellen/uL Last Edit by Magdiel Irene [facility] on 04/07/23 10:15 UA Nitrite Negative Last Edit by Magdiel Irene [facility] on 04/07/23 10:15 UA Urobilinogen 0.2 mg/dL Last Edit by Magdiel Irene [facility] on 04/07/23 10:15 UA Protein 15 mg/dL Last Edit by Magdiel Irene [facility] on 04/07/23 10:15 UA pH 6.0 Last Edit by Magdiel Irene [facility] on 04/07/23 10:15 UA Blood 0 [place]/uL Last Edit by Magdiel Irene [facility] on 04/07/23 10:15 UA Specific [place] 1.020 Last Edit by Magdiel Irene [facility] on 04/07/23 10:15 UA Ketone Negative Last Edit by Magdiel rIene [facility] on 04/07/23 10:15 UA Bilirubin 0 mg/dL Last Edit by Magdiel Irene [facility] on 04/07/23 10:15 UA Glucose 0 mg/dL Last Edit by Magdiel Irene [facility] on 04/07/23 10:15 Results Reviewed Results Reviewed: Laboratory Last Values Urine pH (Auto) 6.0 04/07/23 10:13 Specific [place] (Auto) 1.020 04/07/23 10:13 Urine Protein (Auto) 15 mg/dL 04/07/23 10:13 Glucose (UA)(Auto) 0 mg/dL 04/07/23 10:13 Urine Ketones (Auto) Negative 04/07/23 10:13 Urine Blood (Auto) 0 [place]/uL 04/07/23 10:13 Urine Nitrite (Auto) Negative 04/07/23 10:13 Urine Bilirubin (Auto) 0 mg/dL 04/07/23 10:13 Urine Urobilinogen (Auto) 0.2 mg/dL 04/07/23 10:13 Leukocyte Esterase (Auto) 0 Ellen/uL 04/07/23 10:13 Assessment & Plan Assessment & Plan (1) Overactive bladder: Code(s): N32.81 - Overactive bladder (2) Frequent UTI: Code(s): N39.0 - Urinary tract infection, site not specified Plan Will send urine surveillance for culture. Continue Macrobid 100 mg to take after intercourse. We will get authorization for in office bladder Botox injection 100 units. Ordered Bactrim DS and advised the patient to start 2 days before the procedure. Ordered Pyridium 200 mg and advised the patient to start one day before the procedure. Orders: Orders Urine Culture Today N39.0 - Urinary tract infection, site not specified AMB Urinalysis Automated Today Z13.9 - Encounter for screening, unspecified AMB Post Void Residual by ultrasound Today N39.8 - Other specified disorders of urinary system Medications: New phenazopyridine (Pyridium) start 1 day prior to botox procedure, 200 mg PO BID 5 days 10 tabs 0RF Changed From sulfamethoxazole-trimethoprim 800-160 mg (Bactrim DS) 1 tab PO BID 9 tabs 0RF To sulfamethoxazole-trimethoprim 800-160 mg (Bactrim DS) start 2 days prior to Botox procedure 1 tab PO BID 5 days 10 tabs 0RF Patient Instructions: The patient had an opportunity to ask questions regarding treatment plan. All questions were answered. Imaging, Laboratory studies and physical exam results were discussed and reviewed in detail. No major barriers to understanding were identified. The patient expressed understanding and agreement with the above treatment plan. The patient is aware they should contact our office by phone for worsening of their current condition or the appearance of new symptoms. Compliance is encouraged with any medications and followup testing that is ordered. It is a privilege to be allowed the opportunity to participate in the urologic care of your patient. If you have any questions or concerns regarding treatment for the above conditions please do not hesitate to contact me. The office telephone contact is [phone]. This note is constructed in part using voice recognition software. While every effort has been made to ensure accuracy dimension stone quarry supervisor errors may have been included. Yours sincerely, James Calderon MD Coding Level of Care Code Est Pt Level 4 (53246) Diagnoses Overactive bladder N32.81 Frequent UTI N39.0 CPT Codes Post Residual Void - PVR CPT Code: 21752-Hsgr Void Residual by ultrasound ([id number])
== END 2023-04-07 10:34 | disposition home or self-care (01) ==
PROVIDERS: PCP Internal Medicine; Visit Provider Urology
DX: N32.81 Overactive bladder (principal); N39.0 Urinary tract infection, site not specified; Z13.9 Encounter for screening, unspecified
CPT/HCPCS: 99214

== ENCOUNTER 2023-05-11 08:37 | Outpatient (AMB) | payer OTHER, SELFPAY ==
--- NOTE | 2023-05-11 08:39 | A.OFFVIS_ITS ---
Intake Intake Visit Reasons: CYSTO/BOTOX INJECTION Intake Note: Patient presents today for a CYSTOSCOPY/BOTOX INJECTION Procedure: Allergies to Antibiotic: No Known Allergies Blood Thinner: None Disposable Uro-G Cystoscope Injection Cannula: Lot: [id number] Exp: 07/05/2023 Tanning Drum Operator Required: No Accompanied by: Self / Same As Patient Allergies tree nut Allergy (Severe, Verified 05/11/23 08:39) Anaphylaxis hyoscyamine Allergy (Intermediate, Verified 05/11/23 08:39) itchy throat/ears/nose HPI HPI Comments History of Present Illness Details Valery is a 47-year-old female who presents today to the office for a follow-up. 05/11/2023-- She is followed today for cystoscopy procedure/botox injection. She has been on pyridium and Bactrim 2 dys prior and will complete a 5 day course of bactrim. Botox 100 units bladder injection today. 05/11/2023: Plan: FU with nurse for anton dasilva PVR in one month FU with me in 4 months [facility] Medical History History of abnormal uterine bleeding Urinary incontinence Recurrent major depression in remission Annual visit for general adult medical examination with abnormal findings Vitamin D deficiency Iron deficiency anemia Surgical History Hx of cystoscopy History of hysteroscopy History of loop electrical excision procedure (LEEP) Family History Father Bipolar 1 disorder High cholesterol Diabetes mellitus Mother No problems noted. Social History Housing: House Alcohol intake: current Patient Tobacco Use Status: Never used Tobacco e-Cigarette/Vaping Use: Never Used Current occupational status: unemployed Cognitive needs: No Hearing needs: No Vision needs: No Review of Systems Const All systems reviewed & are unremarkable except as noted in HPI and below Reports no additional complaints Eyes Reports no additional complaints ENT Reports no additional complaints Card Denies dyspnea Resp Denies cough and Denies dyspnea GI Reports no additional complaints Reports no additional complaints Musc Reports no additional complaints Skin/Breast Denies rash and Denies unusual bruising Neuro Reports no additional complaints Psych Reports no additional complaints Endo Reports no additional complaints Brandon/Lymph Reports no additional complaints Aller/Immun Reports no additional complaints Office Procedures Cystoscopy Consent Discussed risk and benefit or proposed procedure with the patient. Information consent for procedure given to the patient. Discussed technical aspects, risks, benefits and alternatives in full. Addressed all of the patient's questions and concerns regarding the procedure. The patient demonstrated knowledge and understanding. They wish to proceed with this procedure. Preparation The patient was prepped in the usual manner. A academic intern was present and in the room. Genitalia was prepped with betadine solution in a sterile manner. Lidocaine Jelly 2% was placed into the urethra and 16Fr flexible Olympus cystoscope was inserted into the meatus after adequate lubrication. Procedure PREOP DIAGNOSIS: OAB POSTOP DIAGNOSIS: OAB PROCEDURE: CYSTOSCOPY, BLADDER BOTOX INJECTION 100 UNITS SURGEON: James Calderon MD ANESTHESIA: Local Details of procedure: Consent obtained. Time-out was done per protocol. 2% lidocaine urojet was passed transurethrally into the bladder. A flexible disposible cystoscope was placed transurethrally into the bladder. The right and left ureteral orifices were visualized. There were no suspicious bladder lesions seen. The Botox 100 units was mixed with 10 cc of normal saline and injected transurethrally 1 cc per injection into the posterior bladder wall. The cystoscope was removed. The patient tolerated the procedure well. Complications: None Drains: none prepped for cysto/botox inj with lido urojet and botox cockatail : 20 mls bupivicaine, 5 mls lidocaine 2% and 2 lidocaine urojets 38447 - Botox Injection, urethra or bladder DISPOSABLE SCOPE URO-N NEEDLE SCOPE Procedure code (CPT) selection complete Office Meds lidocaine HCl 2 % mucosal jelly in applicator Performing Provider: James Calderon MD [facility] Administered by: Ivette Harrington RN on 05/11/23 08:51 Dose Route Admin Location Dispensed Lot Number Expiration Date NDC New Vehicle Sales Consultant 10 mL intra-urethral 20 mL naproxen 500 mg tablet Performing Provider: James Calderon MD [facility] Administered by: Ivette Harrington RN on 05/11/23 08:51 Dose Route Admin Location Dispensed Lot Number Expiration Date NDC New Vehicle Sales Consultant 500 mg PO 1 tab Assessment & Plan Assessment & Plan (1) Overactive bladder: Code(s): N32.81 - Overactive bladder Plan: FU with nurse for bladder scan PVR in one month FU with me in 4 months Orders: Orders AMB Cystoscopy Today N32.81 - Overactive bladder Patient Instructions: The patient had an opportunity to ask questions regarding treatment plan. All questions were answered. Laboratory studies and physical exam results were discussed and reviewed in detail. No major barriers to understanding were identified. The patient expressed understanding and agreement with the above treatment plan. The patient is aware they should contact our office by phone for worsening of their current condition or the appearance of new symptoms. Compliance is encouraged with any medications and followup testing that is ordered. It is a privilege to be allowed the opportunity to participate in the urologic care of your patient. If you have any questions or concerns regarding treatment for the above conditions please do not hesitate to contact me. The office telephone contact is [phone]. This note is constructed in part using voice recognition software. While every effort has been made to ensure accuracy instrument shop supervisor errors may have been included. Yours sincerely, James Calderon MD Coding Level of Care Code Procedure Only Diagnoses Overactive bladder N32.81 CPT Codes Cystoscopy - CPT: 15265 - Botox Injection, urethra or bladder ([id number])
== END 2023-05-11 09:36 | disposition home or self-care (01) ==
PROVIDERS: PCP Internal Medicine; Visit Provider Urology
DX: N32.81 Overactive bladder (principal)
CPT/HCPCS: 52287

== ENCOUNTER → 2023-05-11 08:37 | Outpatient (BNVA) | payer OTHER, SELFPAY | PROVIDERS: PCP Internal Medicine; Visit Provider Urology | DX: N32.81 Overactive bladder (principal) | CPT/HCPCS: 52287; J0585 ==

== ENCOUNTER 2023-05-23 11:34 | Outpatient (AMB) | payer OTHER, SELFPAY ==
--- NOTE | 2023-05-23 11:53 | A.OFFPC_ITS ---
Vital Signs 05/23/23 11:55 Height 5 ft 1 in Weight 130 lb 6 oz BMI 24.6 BP 116/68 Blood Pressure Location Rt brachial Position Sitting Pulse 74 Pulse Source Pulse Oximeter Pulse Oximetry (%) 100 Oxygen Delivery Method Room Air Intake Visit Reasons: Ongoing migraines Intake Note: Pt is here for Migraines for the past 4-6 weeks she has been getting migraines 2-3 times a week and this is a new on set after pt had stopped having them for years Allergies tree nut Allergy (Severe, Verified 05/23/23 12:35) Anaphylaxis hyoscyamine Allergy (Intermediate, Verified 05/23/23 12:35) itchy throat/ears/nose Medication List - Last Reconciled 05/23/23 by eKlly Dodge MD aripiprazole 2 mg PO DAILY bupropion HCl 300 mg PO DAILY dicyclomine 10 mg PO QID fluoxetine 20 mg PO DAILY lamotrigine 100 mg PO DAILY Tobacco use date assessed: 05/23/23 Dental Screening Dental Screen Date: 05/23/23 Did you have a dental visit in the last 12 months?: Yes Did you have a dental problem in the last 6 months where you did not have access to dental care?: No Was dental information given to patient?: Patient has dentist HPI Ongoing migraines HPI Details 47-year-old lady here today complaining having frequent migraine headaches for the past 4-6 weeks. She states that she has had migraines in the past but it has been years since she had another episode.. She denies any triggers, describes it does a diffuse tightening in her head spreading from the back to the front. Accompanied by photophobia but no nausea or vomiting. Has tried taking [id number] Excedrin which has not afforded much relief. She also has history of iron deficiency anemia due to heavy menstrual bleeding, has not really been taking her iron supplements . [facility] Medical History (Updated 07/02/23 @ 07:18 by Kelly Dodge MD) Headache History of abnormal uterine bleeding Urinary incontinence Recurrent major depression in remission Annual visit for general adult medical examination with abnormal findings Vitamin D deficiency Iron deficiency anemia Surgical History Hx of cystoscopy History of hysteroscopy History of loop electrical excision procedure (LEEP) Family History Father Bipolar 1 disorder High cholesterol Diabetes mellitus Mother No problems noted. Social History Housing: House Alcohol intake: current Patient Tobacco Use Status: Never used Tobacco e-Cigarette/Vaping Use: Never Used Current occupational status: unemployed Cognitive needs: No Hearing needs: No Vision needs: No Questionnaire PHQ-9 Over the last 2 weeks, how often have you been bothered by any of the following problems? 1. Little interest or pleasure in doing things: not at all 2. Feeling down, depressed, or hopeless: several days 3. Trouble falling or staying asleep, or sleeping too much: not at all 4. Feeling tired or having little energy: several days 5. Poor appetite or overeating: not at all 6. Feeling bad about yourself - or that you are a failure or have let yourself or your family down: several days 7. Trouble concentrating on things, such as reading the newspaper or watching television: not at all 8. Moving or speaking so slowly that other people could have noticed. Or the opposite - being so fidgety or restless that you have been moving around a lot more than usual: not at all 9. Thoughts that you would be better off or of hurting yourself in some way: not at all Total score: 3 Depression Screening Interpretation: Negative Depression Screening Done: Yes 64303 - PHQ-9 Billing: Yes Source: Developed by Drs. Leo Pineda, Priscilla Gee, Ganesh Beck and colleagues, with an educational lo from [email or web address]. Thrive Questionnaire Date Thrive assessed: 05/23/23 I am a: Patient What is your living situation today?: I have a steady place to live Within the past 12 months, did the food you bought not last and you didn't have the money to get more?: Never true Within the past 12 months, did you worry whether your food would run out before you got money to buy more?: Never true Do you have trouble paying for medicines?: No Do you have trouble getting transportation to medical appointments?: No Do you have trouble paying your heating and electricity bill?: No Do you have trouble taking care of your child, family member or friend?: No Do you have trouble with day-to-day activities such as bathing, preparing meals, shopping, managing finances, etc.?: No Are you currently unemployed and looking for a job?: No Are you interested in more education?: No AUDIT C Alcohol Use Questionnaire (AUDIT-C) 1. How often do you have a drink containing alcohol?: 2-4 times a month 2. How many drinks containing alcohol do you have on a typical day when you are drinking?: 3 or 4 3. How often do you have six or more drinks on one occasion?: Never Total Score: 3 GONZALEZ-7 AMB Questionnaire GONZALEZ-7 Date GONZALEZ - 7 assessed: 05/23/23 Feeling nervous, anxious, or on edge: 0 = Not at all Not being able to stop or control worryin = Several days Worrying too much about different things: 1 = Several days Trouble relaxin = Not at all Being so restless that it is hard to sit still: 0 = Not at all Becoming easily annoyed or irritable: 1 = Several days Feeling afraid as if something awful might happen: 0 = Not at all Total GONZALEZ-7 score (0-4 normal; 5-9 mild; 10-14 moderate; 15-21 severe): 3 Source: Developed by Drs. Leo Pineda, Priscilla Gee, Ganesh Beck and colleagues, with an educational lo from [email or web address]. Review of Systems Const All systems reviewed & are unremarkable except as noted in HPI and below Reports no additional complaints Eyes Reports no additional complaints ENT Reports no additional complaints Card Denies dyspnea Resp Denies cough and Denies dyspnea GI Reports no additional complaints Reports no additional complaints Musc Reports no additional complaints Skin/Breast Denies rash and Denies unusual bruising Neuro Reports no additional complaints Endo Reports no additional complaints Brandon/Lymph Reports no additional complaints Aller/Immun Reports no additional complaints Physical exam (Primary Care) Vital Signs: Last Vital Signs Pulse 74 05/23/23 11:55 BP 116/68 05/23/23 11:55 Pulse Ox 100 05/23/23 11:55 Oxygen Delivery Method Room Air 05/23/23 11:55 BMI result Body Mass Index 24.6 Tobacco/Smoking Status: Tobacco use Status Tobacco use date assessed 05/23/23 05/23/23 12:01 Patient Tobacco Use Status Never used Tobacco 05/23/23 11:53 e-Cigarette/Vaping Use Never Used 05/23/23 11:53 PHQ-9: PHQ-9 Score PHQ-9: Total score 3 07/01/23 17:03 Depression Screening Interpretation: Negative Thrive Assessment: Date of Thrive Assessment Date Thrive assessed 05/23/23 05/23/23 11:55 Const General: cooperative Orientation/consciousness: patient oriented x3 HENMT Other: Normocephalic atraumatic, Ears: TM's normal bilaterally and EAC's normal General nose exam: Normal external nose present and No nasal discharge present Mouth: Normal oral and palatal mucosa present and moist mucous membranes Eyes Other: Pale palpebral conjunctiva, anicteric, EOMI Neck Neck: Yes full ROM, Yes no lymphadenopathy and Yes supple Resp Effort & Inspection: normal respiratory effort Auscultation: clear to auscultation bilaterally Cardio Rate: regular rate Rhythm: regular rhythm Heart sounds: S1 normal heart sound present and S2 normal heart sound present GI Inspection: Yes obesity Palpation (GI): Soft to palpation, nontender, no guarding and no masses Skin General skin exam: no rashes or lesions noted Neuro General: patient oriented x3, gait normal, tone normal, Normal light touch and pain sensation and no focal motor deficits Extrem Right lower extremity: no edema Left lower extremity: no edema Assessment and Plan Assessment & Plan (1) Headache: Code(s): R51.9 - Headache, unspecified Qualifiers: Headache type: unspecified Headache chronicity pattern: episodic headache Intractability: not intractable Qualified Code(s): R51.9 - Headache, unspecified (2) Iron deficiency anemia: Code(s): D50.9 - Iron deficiency anemia, unspecified Qualifiers: Iron deficiency anemia type: unspecified iron deficiency Qualified Code(s): D50.9 - Iron deficiency anemia, unspecified Plan Will check your CBC, iron level, thyroid stimulating hormone, vitamin-D level. May take Tylenol as needed 100 mg 1 tablet every 6 hours for acute episodes of headache, avoid NSAIDs. Advised to go to the ER if any worsening headache occurs especially if accompanied by weakness, nausea, vomiting peer Orders: Orders IRON PROFILE 05/23/23 R51.9 - Headache, unspecified, D50.9 - Iron deficiency anemia, unspecified, E55.9 - Vitamin D deficiency, unspecified Vitamin D 25-OH Total 05/23/23 R51.9 - Headache, unspecified, D50.9 - Iron deficiency anemia, unspecified, E55.9 - Vitamin D deficiency, unspecified TSH reflex Free T4 05/23/23 R51.9 - Headache, unspecified, D50.9 - Iron deficiency anemia, unspecified, E55.9 - Vitamin D deficiency, unspecified Complete Blood Count Auto Diff 05/23/23 R51.9 - Headache, unspecified, D50.9 - Iron deficiency anemia, unspecified, E55.9 - Vitamin D deficiency, unspecified Coding Level of Care Code Tele [facility] Pt Level 3 (56726) Diagnoses Nonintractable episodic headache, unspecified headache type R51.9 Headache type: unspecified Headache chronicity pattern: episodic headache Intractability: not intractable Iron deficiency anemia, unspecified iron deficiency anemia type D50.9 Iron deficiency anemia type: unspecified iron deficiency
[2023-05-23 11:55] VITALS: BP 116/68; PULSE 74; O2SAT 100; BMI 24.6
== END 2023-05-23 13:19 | disposition home or self-care (01) ==
PROVIDERS: PCP Internal Medicine; Visit Provider Internal Medicine
DX: R51.9 Headache, unspecified (principal); D50.9 Iron deficiency anemia, unspecified
CPT/HCPCS: 99213

== ENCOUNTER 2023-05-23 12:45 | Outpatient (REF) | payer OTHER, SELFPAY ==
[2023-05-23 16:04] LABS: MANUAL DIFF FLAG NO
[2023-05-23 16:16] LABS: Basophils Percent Auto 0.6 % (0-2); Eosinophils Absolute Auto 0.2 X10*3/uL (0.0-0.4); Eosinophils Percent Auto 3.1 % (0-4); Hematocrit 28.5 % (37.0-47.0); Hemoglobin 8.1 g/dl (12.0-16.0); Imm Gran Abs Auto 0.01 X10*3/uL (0.00-0.03); Imm Gran Pct Auto 0.2 % (0.0-0.4); Lymphocytes Absolute Auto 1.3 X10*3/uL (1.2-4.9); Lymphocytes Percent Auto 24.7 % (20-40); Mean Corpuscular HGB Conc 28.4 g/dl (31.0-35.0); Mean Corpuscular Hemoglobin 21.7 pg (27.0-33.0); Mean Corpuscular Volume 76.2 fL (80.0-98.0); Mean Platelet Volume 9.9 fL (9.4-12.3); Monocytes Absolute Auto 0.3 X10*3/uL (0.1-1.2); Monocytes Percent Auto 6.6 % (2-11); Neutrophils Absolute Auto 3.3 x10*3/uL (2.0-8.3); Neutrophils Percent Auto 64.8 % (45-73); Platelet Count 380 X10*3/uL (160-400); Red Blood Count 3.74 X10*6/uL (4.20-5.50); Red Cell Distribution Width 17.1 % (11.0-16.0); White Blood Count 5.2 X10*3/uL (4.8-10.8)
[2023-05-23 16:40] LABS: Iron 16 mcg/dL (30-160); Percent Iron Saturation 4 % (15-50); Total Iron Binding Capacity 362 mcg/dL (228-428); Unsaturated Iron Binding 346 ug/dL
[2023-05-23 16:56] LABS: TSH reflex Free T4 0.75 uIU/mL (0.32-4.0); Vitamin D 25-OH Total 36.5 ng/mL (>30)
== END 2023-05-23 12:46 | disposition home or self-care (01) ==
LOC: HO.HMGCLDS 12:45
PROVIDERS: PCP Internal Medicine; Visit Provider Internal Medicine
DX: R51.9 Headache, unspecified (principal); D50.9 Iron deficiency anemia, unspecified; E55.9 Vitamin D deficiency, unspecified
CPT/HCPCS: 36415; 82306; 83540; 84443; 85025

== ENCOUNTER 2023-06-09 09:57 | Outpatient (AMB) | payer OTHER, SELFPAY ==
--- NOTE | 2023-06-09 10:04 | AM.OFFVISNUR ---
Intake Intake Visit Reasons: 1m/PVR/UA Allergies tree nut Allergy (Severe, Verified 05/23/23 12:35) Anaphylaxis hyoscyamine Allergy (Intermediate, Verified 05/23/23 12:35) itchy throat/ears/nose Office Procedures Post Void Residual Post Residual Void Details: pt presents to office for UA/PVR s/p bladder botox one month ago by Dr Becerra. PVR 10 mls. pt reports feels great after botox. keep scheduled follow up with Dr Orlando. Post Void Residual (PVR): 10 10249-Iqhr Void Residual by ultrasound Results AMB Urinalysis, Automated UA Leukoctes 15 Ellen/uL Last Edit by Ivette Harrington RN on 06/09/23 10:12 UA Nitrite Negative Last Edit by Ivette Harrington RN on 06/09/23 10:12 UA Urobilinogen 0 mg/dL Last Edit by Ivette Harrington RN on 06/09/23 10:12 UA Protein 30 mg/dL Last Edit by Ivette Harrington RN on 06/09/23 10:12 UA pH 6.0 Last Edit by Ivette Harrington RN on 06/09/23 10:12 UA Blood 0 Orlando/uL Last Edit by Ivette Harrington RN on 06/09/23 10:12 UA Specific [place] 1.030 Last Edit by Ivette Harrington RN on 06/09/23 10:12 UA Ketone Positive Last Edit by Ivette Harrington RN on 06/09/23 10:12 UA Bilirubin 2 mg/dL Last Edit by Ivette Harrington RN on 06/09/23 10:12 UA Glucose 0 mg/dL Last Edit by Ivette Harrington RN on 06/09/23 10:12 Coding CPT Codes Post Residual Void - PVR CPT Code: 04573-Volc Void Residual by ultrasound ([id number]) Assessment & Plan Assessment & Plan Orders: Orders AMB Urinalysis Automated Today N32.81 - Overactive bladder, N39.0 - Urinary tract infection, site not specified AMB Post Void Residual by ultrasound Today N32.81 - Overactive bladder
== END 2023-06-09 10:41 | disposition home or self-care (01) ==
PROVIDERS: PCP Internal Medicine; Visit Provider Urology
DX: N39.0 Urinary tract infection, site not specified (principal); N32.81 Overactive bladder

== ENCOUNTER → 2023-06-09 09:57 | Outpatient (BNVA) | payer OTHER, SELFPAY | PROVIDERS: PCP Internal Medicine; Visit Provider Urology | DX: N32.81 Overactive bladder (principal) | CPT/HCPCS: 51798; 81003 ==

== ENCOUNTER 2023-08-08 11:51 | Day surgery (SDC) | payer OTHER, SELFPAY ==
--- NOTE | 2023-08-05 12:44 | HO.ANESPROP2 ---
HPI - Anesthesia Eval Consult details Narrative: 47yo F for Colonoscopy PMFSH Active Problems Active Problems: All Active Problems (Updated 07/02/23 @ 07:18 by Kelly Dodge MD) Headache (Acute) Frequent UTI (Acute) UTI (urinary tract infection) (Acute) Overactive bladder (Acute) History of abnormal uterine bleeding (Acute) Urinary incontinence (Acute) Recurrent major depression in remission (Acute) Annual visit for general adult medical examination with abnormal findings (Acute) Vitamin D deficiency (Acute) Iron deficiency anemia (Acute) Past Medical History Medical History (Updated 07/02/23 @ 07:18 by Kelly Dodge MD) Headache History of abnormal uterine bleeding Urinary incontinence Recurrent major depression in remission Annual visit for general adult medical examination with abnormal findings Vitamin D deficiency Iron deficiency anemia Family History Family History Father Bipolar 1 disorder High cholesterol Diabetes mellitus Mother No problems noted. Family history of problems with anesthesia: No Surgical History Surgical History Hx of cystoscopy History of hysteroscopy History of loop electrical excision procedure (LEEP) History of Problems with Anesthesia: No Social History Social History Housing: House Alcohol intake: current Patient Tobacco Use Status: Never used Tobacco e-Cigarette/Vaping Use: Never Used Current occupational status: unemployed Cognitive needs: No Hearing needs: No Vision needs: No Meds Allergies Allergy/AdvReac Type Severity Reaction Status Date / Time tree nut Allergy Severe Anaphylaxis Verified 05/23/23 12:35 hyoscyamine Allergy Intermediate itchy Verified 05/23/23 12:35 throat/ears/nose Home Medications Medication Instructions Recorded Confirmed Last Taken Type aripiprazole 2 mg tablet 2 mg PO DAILY 04/02/20 12/01/22 09/07/21 History bupropion HCl 300 mg 24 hr tablet, 300 mg PO DAILY 04/02/20 12/01/22 09/07/21 History extended release fluoxetine 20 mg capsule 20 mg PO DAILY 04/02/20 12/01/22 09/07/21 History lamotrigine 100 mg tablet 100 mg PO DAILY 02/10/21 12/01/22 09/07/21 History Assessment and Plan Assessment Anesthesia Assessment: Chart Reviewed Final Anesthetic Review Family History of Problems with Anesthesia: No History of Problems with Anesthesia: No
--- NOTE | 2023-08-08 12:21 | HO.ANESPROP2 ---
[facility] Active Problems Active Problems: All Active Problems (Updated 07/02/23 @ 07:18 by Kelly Dodge MD) Headache (Acute) Frequent UTI (Acute) UTI (urinary tract infection) (Acute) Overactive bladder (Acute) History of abnormal uterine bleeding (Acute) Urinary incontinence (Acute) Recurrent major depression in remission (Acute) Annual visit for general adult medical examination with abnormal findings (Acute) Vitamin D deficiency (Acute) Iron deficiency anemia (Acute) Past Medical History Medical History Headache History of abnormal uterine bleeding Urinary incontinence Recurrent major depression in remission Annual visit for general adult medical examination with abnormal findings Vitamin D deficiency Iron deficiency anemia Family History Family History Father Bipolar 1 disorder High cholesterol Diabetes mellitus Mother No problems noted. Family history of problems with anesthesia: No Surgical History Surgical History Hx of cystoscopy History of hysteroscopy History of loop electrical excision procedure (LEEP) History of Problems with Anesthesia: No Social History Social History Housing: House Alcohol intake: current Patient Tobacco Use Status: Never used Tobacco e-Cigarette/Vaping Use: Never Used Current occupational status: unemployed Cognitive needs: No Hearing needs: No Vision needs: No Meds Allergies Allergy/AdvReac Type Severity Reaction Status Date / Time tree nut Allergy Severe Anaphylaxis Verified 05/23/23 12:35 hyoscyamine Allergy Intermediate itchy Verified 05/23/23 12:35 throat/ears/nose Active Medications: Current Medications Lactated Ringer's (Lr) 1,000 mls @ 100 mls/hr IVCONT .Q10H PAVEL Sodium Biphosphate/Sodium Phosphate (Sodium Phosphate,[place]-Dibasic 133 Ml Enema) 133 ml FL ONCE PRN PRN Reason: Poor Colonoscopy Prep Results Home Medications Medication Instructions Recorded Confirmed Last Taken Type aripiprazole 2 mg tablet 2 mg PO DAILY 04/02/20 08/08/23 08/08/23 History bupropion HCl 300 mg 24 hr tablet, 300 mg PO DAILY 04/02/20 08/08/23 08/08/23 History extended release fluoxetine 20 mg capsule 20 mg PO DAILY 04/02/20 08/08/23 09/07/21 History lamotrigine 100 mg tablet 100 mg PO DAILY 02/10/21 08/08/23 08/08/23 History Exam Airway Mallampati Class: II TM Dist: >3cm Neck ROM: Full Heart: RRR Lungs: CTA Assessment and Plan Assessment Anesthesia Assessment: Anesthesia Plan Discussed Final Anesthetic Review Family History of Problems with Anesthesia: No History of Problems with Anesthesia: No ASA Class: II Final Preanesthetic Review: Meds/Allgs Chart Reviewed, Consent Obtained/Reviewed and Anes Risks/Benef Reviewed Patient Risk: Low Procedure Risk: Low Anesthetic Plan Anesthetic Plan: MAC: Disposition: Standard PACU
[2023-08-08 12:31] VITALS: BMI 22.7
[2023-08-08 12:35] VITALS: BP 128/81; PULSE 69; RESP 18; TEMP 36.7; O2SAT 100
[2023-08-08 12:38] VITALS: BMI 22.7
[2023-08-08 12:46] LABS: UPreg QC Valid YES; Urine Pregnancy NEGATIVE (NEGATIVE)
[2023-08-08] MEDS: Lactated Ringers 1,000 ML 100 ML IVCONT (12:50)
--- NOTE | 2023-08-08 13:59 | P.BOP_ITS ---
Brief Operative Note Date of Service: 08/08/23 Pre-op diagnosis: Screening Post-op diagnosis: other (Internal hemorrhoids) Procedure: Colonoscopy to the cecum and TI Surgeon: Leo Blandon MD Anesthesia: MAC Was an Contact Center Rep used for this Procedure?: No Estimated blood loss (mL): 0 Pathology: none sent Condition: stable Disposition: PACU
[2023-08-08 14:00] VITALS: BP 95/48; PULSE 90; RESP 16; TEMP 36.8; O2SAT 100
[2023-08-08 14:14] VITALS: BP 125/76; PULSE 74; RESP 20; TEMP 36.6; O2SAT 97
--- NOTE | 2023-08-08 14:19 | HO.POSTANES ---
Post Anesthesia Evaluation Post Anesthesia Evaluation Date of Service: 08/08/23 Vital Signs: Vital Signs Temp Pulse Resp BP Pulse Ox O2 Del Method 08/08/23 14:14 98 F 74 20 125/76 97 Room Air 08/08/23 14:00 98.2 F 90 16 95/48 L 100 Room Air 08/08/23 12:35 98.1 F 69 18 128/81 100 Room Air Anesthesia: Monitored Mental Status: Awake Pain Control: Satisfactory Nausea/Vomiting: None Hydration: Adequate Anesthesia-Related Issues: No Anes. Related Issues
[2023-08-08 14:29] VITALS: BP 115/68; PULSE 78; RESP 18; O2SAT 100
[2023-08-08 14:44] VITALS: BP 121/73; PULSE 76; RESP 16; O2SAT 100
[2023-08-08 14:57] VITALS: BP 126/68; PULSE 76; RESP 18; TEMP 36.7; O2SAT 100
--- NOTE | 2023-08-10 14:28 | OP_ITS ---
DATE OF SERVICE: 08/08/2023 SURGEON: Leo Blandon MD INDICATIONS: The patient presents for evaluation of colorectal cancer screening. Full consent has been obtained from her for this, including risks of bleeding and perforation. PREOPERATIVE DIAGNOSIS: Colorectal cancer screening. POSTOPERATIVE DIAGNOSIS: PROCEDURE PERFORMED: ESTIMATED BLOOD LOSS: COMPLICATIONS: ANESTHESIA: Monitored anesthesia care. ASSISTANTS: SPECIMENS: POSTOPERATIVE DIAGNOSES: Colorectal cancer screening, small internal hemorrhoids. PROCEDURES PERFORMED: Colonoscopy to the cecum and terminal ileum. DESCRIPTION OF PROCEDURE: The patient was placed in the left lateral decubitus position. The digital rectal exam revealed no abnormalities. The Olympus video pediatric colonoscope was then entered into the rectum and advanced easily to the cecum. Once in the cecum, I did identify normal-appearing cecal pouch with appendiceal orifice and a normal-appearing ileocecal valve. The terminal ileum was cannulated and appeared normal. The scope was withdrawn back in the colon. The entire cecum and ileocecal valve appeared normal. The scope was slowly withdrawn, assessing all mucosal surfaces carefully. Preparation was excellent. I did not visualize any sign of polyps, colitis, nor angiodysplasia. In the rectum, scope was retroflexed, visualizing small internal hemorrhoids, but no other pathology. The rectal mucosa appeared normal. The scope was straightened and withdrawn from the patient. She tolerated the procedure well and was returned to the recovery area in stable condition. IMPRESSION: Internal hemorrhoids, otherwise normal colonoscopy. PLAN: Given today's negative exam, I would recommend a followup coloscopy in 10 years. She will, otherwise, see me on a p.r.n. basis. Her irritable bowel syndrome has been stable without any particular medication. I did advise her to call if that increases in symptomatology, as well. MD CLOVIS Sagastume/SEKOU / [phone]
== END 2023-08-08 15:02 | disposition home or self-care (01) ==
PROVIDERS: Nurse Practitioner; PCP Internal Medicine; Visit Provider Internal Medicine
PROC: 0DJD8ZZ Inspection of Lower Intestinal Tract, Via Natural or Artificial Opening Endoscopic (ICD-10-PCS; CPT 45378; principal; 2023-08-08 13:20)
DX: Z12.11 Encounter for screening for malignant neoplasm of colon (principal); K64.8 Other hemorrhoids; D50.9 Iron deficiency anemia, unspecified; K58.1 Irritable bowel syndrome with constipation
CPT/HCPCS: 45378; 81025; J2704

== ENCOUNTER 2023-10-24 10:09 | Outpatient (REF) | payer OTHER, SELFPAY | END 2023-10-24 10:10 | disposition home or self-care (01) | LOC: HO.LAB 10:09 | PROVIDERS: PCP Internal Medicine; Visit Provider Urology | DX: N39.0 Urinary tract infection, site not specified (principal); N32.81 Overactive bladder | CPT/HCPCS: 51798; 81003; 87086 ==

== ENCOUNTER 2023-10-24 10:09 | Outpatient (AMB) | payer OTHER, SELFPAY ==
--- NOTE | 2023-10-24 10:21 | MHC.OFFVIS ---
Intake Visit Reasons: 4m follow up Intake Note: Patient is Present for PVR Urology Med:none Antibiotic Allergy:none Blood Thinner:none Todays PVR: 0ml Allergies tree nut Allergy (Severe, Verified 10/24/23 10:25) Anaphylaxis hyoscyamine Allergy (Intermediate, Verified 10/24/23 10:25) itchy throat/ears/nose Medication List - Last Reconciled 10/24/23 by James Calderon MD aripiprazole 2 mg PO DAILY bupropion HCl XL 300 mg PO DAILY dicyclomine 10 mg PO QID duloxetine 30 mg PO DAILY ferrous fumarate 325 mg PO DAILY lamotrigine 100 mg PO DAILY nitrofurantoin monohyd/m-cryst 100 mg (Macrobid) 100 mg orally use after sexual activity as directed; must administer with a meal/food phenazopyridine (Pyridium) 200 mg PO BID sulfamethoxazole-trimethoprim 800-160 mg (Bactrim DS) 1 tab PO BID HPI Comments Details: Valery is a 47-year-old female who presents today to the office for a follow-up. She is followed for overactive bladder and has had benefit in symptom release with bladder Botox injection 100 units. Last treatment was 05/11/2023. She states she is noting more urgency. Urinalysis today leukocytes negative blood negative. We will schedule repeat Botox 100 units. I will prescribe Bactrim and Pyridium to start 2 days before the procedure. Review of chart: 05/11/2023-- She is followed today for cystoscopy procedure/botox injection. She has been on pyridium and Bactrim 2 dys prior and will complete a 5 day course of bactrim. Botox 100 units bladder injection today. FU with nurse for bladder scan PVR in one month FU with me in 4 months [facility] Medical History Headache History of abnormal uterine bleeding Urinary incontinence Recurrent major depression in remission Annual visit for general adult medical examination with abnormal findings Vitamin D deficiency Iron deficiency anemia Surgical History Hx of cystoscopy History of hysteroscopy History of loop electrical excision procedure (LEEP) Family History Father Bipolar 1 disorder High cholesterol Diabetes mellitus Mother No problems noted. Social History Housing: House Alcohol intake: current Patient Tobacco Use Status: Never used Tobacco e-Cigarette/Vaping Use: Never Used Current occupational status: unemployed Cognitive needs: No Hearing needs: No Vision needs: No Review of Systems Const All systems reviewed & are unremarkable except as noted in HPI and below Reports no additional complaints Eyes Reports no additional complaints ENT Reports no additional complaints Card Reports no additional complaints Resp Reports no additional complaints GI Reports no additional complaints Reports as per HPI Musc Reports no additional complaints Skin/Breast Reports system reviewed and no additional complaints, except as documented Neuro Reports no additional complaints Psych Reports no additional complaints Endo Reports no additional complaints Brandon/Lymph Reports no additional complaints Aller/Immun Reports no additional complaints Office Procedures Post Void Residual Post Residual Void Post Void Residual (PVR): 0 27093-Cwxm Void Residual by ultrasound Results AMB Urinalysis, Automated UA Leukoctes 0 Ellen/uL Last Edit by Zohra Gloria Stanton on 10/24/23 10:33 UA Nitrite Negative Last Edit by Zohra Gloria [facility] on 10/24/23 10:33 UA Urobilinogen 0.2 mg/dL Last Edit by Zohra Gloria A on 10/24/23 10:33 UA Protein 0 mg/dL Last Edit by Zohra Gloria A on 10/24/23 10:33 UA pH 7.0 Last Edit by Zohra Gloria [facility] on 10/24/23 10:33 UA Blood 0 [place]/uL Last Edit by Zohra Gloria [facility] on 10/24/23 10:33 UA Specific [place] 1.010 Last Edit by Zohra Gloria A on 10/24/23 10:33 UA Ketone Negative Last Edit by Zohra Gloria Stanton on 10/24/23 10:33 UA Bilirubin 0 mg/dL Last Edit by Zohra Gloria A on 10/24/23 10:33 UA Glucose 0 mg/dL Last Edit by Zohra Gloria [facility] on 10/24/23 10:33 Results Reviewed Results Reviewed: Laboratory Last Values Urine pH (Auto) 7.0 05/20/24 10: Specific [place] (Auto) 1.010 10/24/23 10: Urine Protein (Auto) 0 mg/dL 10/24/23 10: Glucose (UA)(Auto) 0 mg/dL 10/24/23 10: Urine Ketones (Auto) Negative 10/24/23 10: Urine Blood (Auto) 0 [place]/uL 10/24/23 10: Urine Nitrite (Auto) Negative 10/24/23 10: Urine Bilirubin (Auto) 0 mg/dL 10/24/23 10:27 Urine Urobilinogen (Auto) 0.2 mg/dL 10/24/23 10: Leukocyte Esterase (Auto) 0 Ellen/uL 10/24/23 10: Date of Service: 09/17/21 EXAMINATION: US ABDOMEN COMPLETE CLINICAL INFORMATION: Right upper quadrant pain. COMPARISON: None TECHNIQUE: Real-time imaging of the abdominal viscera. FINDINGS: PANCREAS: Normal. ABDOMINAL AORTA: The proximal, mid, and distal segments are normal in caliber. INFERIOR VENA CAVA: Visualized portions are normal. LIVER: The liver appears coarse and heterogeneous. The liver is normal in size. The liver contour is normal. Parenchymal echogenicity is normal. No focal hepatic lesion. There is no intrahepatic biliary duct dilatation seen. Normal upper pedal flow seen right portal vein. GALLBLADDER: Normal. The gallbladder is physiologically distended without evidence of stones, sludge, polyps, wall thickening or pericholecystic fluid. COMMON BILE DUCT: Normal in caliber measuring 0.2 cm in diameter. RIGHT KIDNEY: There is mild pelvic fullness.. No renal calculi or focal parenchymal lesions. The kidney measures 9.9 cm in maximum dimension. LEFT KIDNEY: Normal. No hydronephrosis. No renal calculi or focal parenchymal lesions. The kidney measures 9.7 cm in maximum dimension. SPLEEN: Normal. The spleen measures 9.0 cm in maximum dimension. FREE FLUID: None. IMPRESSION: Coarse, echogenic and heterogeneous liver but no focal lesion seen. ? Mild right renal pelvic fullness. ? Rest of the abdominal ultrasound is unremarkable. Assessment & Plan Assessment & Plan (1) Overactive bladder: Code(s): N32.81 - Overactive bladder Category: Medical Plan Schedule repeat office cystoscopy Botox injection 100 units Orders: Orders AMB Post Void Residual by ultrasound Today N32.81 - Overactive bladder AMB Urinalysis Automated Today Z13.9 - Encounter for screening, unspecified Medications: New sulfamethoxazole-trimethoprim 800-160 mg (Bactrim DS) Start antibiotics 2 days prior to procedure 1 tab PO BID 10 tabs 0RF phenazopyridine (Pyridium) Start medication 2 days prior to procedure. Take medication with food 200 mg PO BID 14 tabs 0RF Patient Instructions: The patient had an opportunity to ask questions regarding treatment plan. The patient expressed understanding and agreement with the above treatment plan. The patient is aware they should contact our office by phone for worsening of their current condition or the appearance of new symptoms. Compliance is encouraged with any medications and followup testing that is ordered. It is a privilege to be allowed the opportunity to participate in the urologic care of your patient. If you have any questions or concerns regarding treatment for the above conditions please do not hesitate to contact me. The office telephone contact is [phone]. This note is constructed in part using voice recognition software. While every effort has been made to ensure accuracy reset merchandiser errors may have been included. Yours sincerely, James Calderon MD Coding Level of Care Code Est Pt Level 4 (71999) Diagnoses Overactive bladder N32.81 CPT Codes Post Residual Void - PVR CPT Code: 99757-Vekp Void Residual by ultrasound ([id number])
== END 2023-10-24 11:19 | disposition home or self-care (01) ==
PROVIDERS: PCP Internal Medicine; Visit Provider Urology
DX: N32.81 Overactive bladder (principal); Z13.9 Encounter for screening, unspecified
CPT/HCPCS: 99214

== ENCOUNTER 2023-11-09 12:00 | Outpatient (AMB) | payer OTHER, SELFPAY ==
--- NOTE | 2023-11-09 12:07 | A.OFFPC_ITS ---
Vital Signs 11/09/23 12:09 Height 5 ft 1 in Weight 129 lb BMI 24.4 BP 104/70 Blood Pressure Location Rt brachial Position Sitting Pulse 75 Pulse Source Pulse Oximeter Pulse Oximetry (%) 99 Oxygen Delivery Method Room Air Intake Visit Reasons: fatigue/tiredness Intake Note: Pt is here today c/o fatigue and tiredness: Dozing off while driving Allergies tree nut Allergy (Severe, Verified 11/09/23 12:19) Anaphylaxis hyoscyamine Allergy (Intermediate, Verified 11/09/23 12:19) itchy throat/ears/nose Medication List - Last Reconciled 11/09/23 by Kelly Dodge MD aripiprazole 5 mg PO DAILY bupropion HCl XL 300 mg PO DAILY duloxetine 60 mg PO DAILY lamotrigine 100 mg PO DAILY Tobacco use date assessed: 11/09/23 Dental Screening Dental Screen Date: 11/09/23 Did you have a dental visit in the last 12 months?: Yes Did you have a dental problem in the last 6 months where you did not have access to dental care?: No Was dental information given to patient?: Patient has dentist HPI fatigue/tiredness HPI Details 48-year-old lady with history of iron de ficiency anemia, here today complaining of feeling tired all the time, to the point that she sometimes would almost dose off while driving. Has no energy, , occasional shortness of breath on exertion but denies any chest pain or palpitations. Has been prescribed iron supplements in the past but has not been take them. Has regular periods but complains of heavy periods 1st couple of days of her cycle. [facility] Medical History (Updated 11/09/23 @ 12:35 by Kelly Dodge MD) Chronic fatigue Headache History of abnormal uterine bleeding Urinary incontinence Recurrent major depression in remission Vitamin D deficiency Iron deficiency anemia Surgical History Hx of cystoscopy History of hysteroscopy History of loop electrical excision procedure (LEEP) Family History Father Bipolar 1 disorder High cholesterol Diabetes mellitus Mother No problems noted. Social History Housing: House Alcohol intake: current Patient Tobacco Use Status: Never used Tobacco e-Cigarette/Vaping Use: Never Used Current occupational status: unemployed Cognitive needs: No Hearing needs: No Vision needs: No Questionnaire PHQ-9 Over the last 2 weeks, how often have you been bothered by any of the following problems? 1. Little interest or pleasure in doing things: several days 2. Feeling down, depressed, or hopeless: several days 3. Trouble falling or staying asleep, or sleeping too much: nearly every day 4. Feeling tired or having little energy: more than half the days 5. Poor appetite or overeating: not at all 6. Feeling bad about yourself - or that you are a failure or have let yourself or your family down: several days 7. Trouble concentrating on things, such as reading the newspaper or watching television: several days 8. Moving or speaking so slowly that other people could have noticed. Or the opposite - being so fidgety or restless that you have been moving around a lot more than usual: not at all 9. Thoughts that you would be better off or of hurting yourself in some way: not at all Total score: 9 Depression Screening Interpretation: Positive (Followed at [facility]) Depression Screening Follow-up: Existing condition, In treatment and Community Mental Health Worker F/U Depression Screening Done: Yes 99150 - PHQ-9 Billing: Yes Source: Developed by Drs. Leo Pineda, Priscilla Gee, Ganesh Beck and colleagues, with an educational lo from [employer]. Thrive Questionnaire Date Thrive assessed: 11/09/23 I am a: Patient What is your living situation today?: I have a steady place to live Within the past 12 months, did the food you bought not last and you didn't have the money to get more?: Never true Within the past 12 months, did you worry whether your food would run out before you got money to buy more?: Never true Do you have trouble paying for medicines?: No Do you have trouble getting transportation to medical appointments?: No Do you have trouble paying your heating and electricity bill?: No Do you have trouble taking care of your child, family member or friend?: No Do you have trouble with day-to-day activities such as bathing, preparing meals, shopping, managing finances, etc.?: No Are you currently unemployed and looking for a job?: No Are you interested in more education?: No THRIVE Score: 0 GONZALEZ-7 AMB Questionnaire GONZALEZ-7 Date GONZALEZ - 7 assessed: 11/09/23 Feeling nervous, anxious, or on edge: 0 = Not at all Not being able to stop or control worryin = Several days Worrying too much about different things: 1 = Several days Trouble relaxin = Not at all Being so restless that it is hard to sit still: 0 = Not at all Becoming easily annoyed or irritable: 1 = Several days Feeling afraid as if something awful might happen: 0 = Not at all Total GONZALEZ-7 score (0-4 normal; 5-9 mild; 10-14 moderate; 15-21 severe): 3 Source: Developed by Drs. Leo Pineda, Priscilla Gee, Ganesh Beck and colleagues, with an educational lo from [employer]. GONZALEZ-7 Assessment Billing GONZALEZ-7 Assessment Tool: GONZALEZ-7 Assessment 58892 Review of Systems Const Denies body aches, Reports daytime sleepiness, Denies fever(s), Denies headache(s), Reports lethargy, Reports malaise and Denies stops breathing during sleep Eyes Reports no additional complaints ENT Reports no additional complaints and Denies headache(s) Card Denies chest pain, Denies syncope, Denies rapid heart rate, Denies irregular heart rhythm, Reports lightheadedness, Denies dyspnea and Denies dyspnea on exertion Resp Denies chest congestion, Denies cough, Denies dyspnea and Denies dyspnea on exertion GI Reports no additional complaints Reports as per HPI Musc Reports no additional complaints Skin/Breast Denies rash and Denies unusual bruising Neuro Reports no additional complaints, Denies syncope and Denies headache(s) Endo Reports no additional complaints Brandon/Lymph Reports no additional complaints Aller/Immun Reports no additional complaints Physical exam (Primary Care) Vital Signs: Last Vital Signs Pulse 75 11/09/23 12:09 BP 104/70 11/09/23 12:09 Pulse Ox 99 11/09/23 12:09 Oxygen Delivery Method Room Air 11/09/23 12:09 BMI result Body Mass Index 24.4 Tobacco/Smoking Status: Tobacco use Status Tobacco use date assessed 11/09/23 11/09/23 12:13 Patient Tobacco Use Status Never used Tobacco 11/09/23 12:13 e-Cigarette/Vaping Use Never Used 11/09/23 12:13 Depression Screening Interpretation: Positive ([facility]) Depression Screening Follow-up: Existing condition, In treatment and Community Mental Health Worker F/U Thrive Assessment: Date of Thrive Assessment Date Thrive assessed 05/23/23 11/09/23 12:13 Const General: cooperative Orientation/consciousness: patient oriented x3 HENMT Other: Normocephalic atraumatic, Ears: TM's normal bilaterally and EAC's normal General nose exam: Normal external nose present and No nasal discharge present Mouth: Normal oral and palatal mucosa present and moist mucous membranes Eyes Other: Pale palpebral conjunctiva, anicteric, EOMI Neck Neck: Yes full ROM, Yes no lymphadenopathy and Yes supple Resp Effort & Inspection: normal respiratory effort Auscultation: clear to auscultation bilaterally Cardio Rate: regular rate Rhythm: regular rhythm Heart sounds: S1 normal heart sound present and S2 normal heart sound present GI Inspection: Yes obesity Palpation (GI): Soft to palpation, nontender, no guarding and no masses Skin General skin exam: no rashes or lesions noted Neuro General: patient oriented x3, gait normal, tone normal, Normal light touch and pain sensation and no focal motor deficits Extrem Right lower extremity: no edema Left lower extremity: no edema Assessment and Plan Assessment & Plan (1) Iron deficiency anemia: Code(s): D50.9 - Iron deficiency anemia, unspecified Qualifiers: Iron deficiency anemia type: unspecified iron deficiency Qualified Code(s): D50.9 - Iron deficiency anemia, unspecified Plan: Ordered CBC and iron profile patient advised to take her iron supplements, which she still has at home, call if so that we can call in a new prescription (2) Chronic fatigue: Code(s): R53.82 - Chronic fatigue, unspecified Plan: Ordered TSH with free T4, vitamin-D and vitamin B12 level Orders: Orders Complete Blood Count Auto Diff Today D50.9 - Iron deficiency anemia, unspecified IRON PROFILE Today D50.9 - Iron deficiency anemia, unspecified Vitamin B12 and Folate Today D50.9 - Iron deficiency anemia, unspecified, E55.9 - Vitamin D deficiency, unspecified TSH reflex Free T4 Today D50.9 - Iron deficiency anemia, unspecified, E55.9 - Vitamin D deficiency, unspecified Vitamin D 25-OH Total Today D50.9 - Iron deficiency anemia, unspecified, E55.9 - Vitamin D deficiency, unspecified Coding Level of Care Code Est Pt Level 4 (98457) Diagnoses Iron deficiency anemia, unspecified iron deficiency anemia type D50.9 Iron deficiency anemia type: unspecified iron deficiency Chronic fatigue R53.82 Additional Codes GONZALEZ-7 Assessment Billing - GONZALEZ-7 Assessment Tool: GONZALEZ-7 Assessment 47005 ([id number])
[2023-11-09 12:09] VITALS: BP 104/70; PULSE 75; O2SAT 99; BMI 24.4
== END 2023-11-09 12:51 | disposition home or self-care (01) ==
PROVIDERS: PCP Internal Medicine; Visit Provider Internal Medicine
DX: D50.9 Iron deficiency anemia, unspecified (principal); R53.82 Chronic fatigue, unspecified
CPT/HCPCS: 99214

== ENCOUNTER 2023-11-09 12:29 | Outpatient (REF) | payer OTHER, SELFPAY ==
[2023-11-09 14:06] LABS: MANUAL DIFF FLAG NO
[2023-11-09 14:12] LABS: Basophils Percent Auto 0.4 % (0-2); Eosinophils Absolute Auto 0.1 X10*3/uL (0.0-0.4); Eosinophils Percent Auto 1.5 % (0-4); Hematocrit 29.2 % (37.0-47.0); Hemoglobin 8.6 g/dl (12.0-16.0); Imm Gran Abs Auto 0.01 X10*3/uL (0.00-0.03); Imm Gran Pct Auto 0.2 % (0.0-0.4); Lymphocytes Absolute Auto 1.5 X10*3/uL (1.2-4.9); Lymphocytes Percent Auto 31.8 % (20-40); Mean Corpuscular HGB Conc 29.5 g/dl (31.0-35.0); Mean Corpuscular Hemoglobin 22.5 pg (27.0-33.0); Mean Corpuscular Volume 76.4 fL (80.0-98.0); Mean Platelet Volume 10.1 fL (9.4-12.3); Monocytes Absolute Auto 0.3 X10*3/uL (0.1-1.2); Monocytes Percent Auto 6.7 % (2-11); Neutrophils Absolute Auto 2.8 x10*3/uL (2.0-8.3); Neutrophils Percent Auto 59.4 % (45-73); Platelet Count 344 X10*3/uL (160-400); Red Blood Count 3.82 X10*6/uL (4.20-5.50); White Blood Count 4.8 X10*3/uL (4.8-10.8)
[2023-11-09 14:51] LABS: Iron 324 mcg/dL (30-160); Percent Iron Saturation 80 % (15-50); Total Iron Binding Capacity 404 mcg/dL (228-428); Unsaturated Iron Binding 80 ug/dL
[2023-11-09 14:58] LABS: TSH reflex Free T4 1.06 uIU/mL (0.32-4.0); Vitamin D 25-OH Total 34.3 ng/mL (>30)
[2023-11-09 15:15] LABS: Folate 7.8 ng/mL (> or = 4.0); Vitamin B12 517 pg/mL (200-900)
== END 2023-11-09 12:30 | disposition home or self-care (01) ==
LOC: HO.HMGCLDS 12:29
PROVIDERS: PCP Internal Medicine; Visit Provider Internal Medicine
DX: D50.9 Iron deficiency anemia, unspecified (principal); E55.9 Vitamin D deficiency, unspecified
CPT/HCPCS: 36415; 82306; 82607; 82746; 83540; 84443; 85025

== ENCOUNTER 2023-12-05 10:31 | Outpatient (AMB) | payer OTHER, SELFPAY ==
--- NOTE | 2023-12-05 10:39 | MHC.OFFVIS ---
Intake Visit Reasons: Botox Injection (approved) Intake Note: Patient is present for botox Urology Medication:sulfamethoxazole-trimethoprim,lidocaine Antibiotic Allergy:none Blood Thinner:none LOT:[id number] EXP:07/04/2025 Dielectric Machine Operator Required: No Allergies tree nut Allergy (Severe, Verified 12/05/23 10:41) Anaphylaxis hyoscyamine Allergy (Intermediate, Verified 12/05/23 10:41) itchy throat/ears/nose Medication List - Last Reconciled 12/05/23 by James Calderon MD aripiprazole 5 mg PO DAILY bupropion HCl XL 300 mg PO DAILY duloxetine 60 mg PO DAILY lamotrigine 100 mg PO DAILY sulfamethoxazole-trimethoprim 800-160 mg (Bactrim DS) 1 tab PO BID 5 days HPI Comments Details: 12/05/23--Valery is here for repeat Botox 100 units. She states that at 4 1/2 months she is noticing the urgency is stronger. Discussed to sched next botox in 4 months. Botox 100 units bladder injection today. Pt tolerated procedure well Review of chart: 10/24/23--Valery is a 47-year-old female who presents today to the office for a follow-up. She is followed for overactive bladder and has had benefit in symptom release with bladder Botox injection 100 units. Last treatment was 05/11/2023. She states she is noting more urgency. Urinalysis today leukocytes negative blood negative. We will schedule repeat Botox 100 units. I will prescribe Bactrim and Pyridium to start 2 days before the procedure. 05/11/2023-- She is followed today for cystoscopy procedure/botox injection. She has been on pyridium and Bactrim 2 dys prior and will complete a 5 day course of bactrim. Botox 100 units bladder injection today. FU with nurse for bladder scan PVR in one month FU with me in 4 months [facility] Medical History Microcytic hypochromic anemia Chronic fatigue Headache History of abnormal uterine bleeding Urinary incontinence Recurrent major depression in remission Vitamin D deficiency Iron deficiency anemia Surgical History Hx of cystoscopy History of hysteroscopy History of loop electrical excision procedure (LEEP) Family History Father Bipolar 1 disorder High cholesterol Diabetes mellitus Mother No problems noted. Social History Housing: House Alcohol intake: current Patient Tobacco Use Status: Never used Tobacco e-Cigarette/Vaping Use: Never Used Current occupational status: unemployed Cognitive needs: No Hearing needs: No Vision needs: No Review of Systems Const All systems reviewed & are unremarkable except as noted in HPI and below Reports no additional complaints Eyes Reports no additional complaints ENT Reports no additional complaints Card Reports no additional complaints Resp Reports no additional complaints GI Reports no additional complaints Reports as per HPI Musc Reports no additional complaints Skin/Breast Reports system reviewed and no additional complaints, except as documented Neuro Reports no additional complaints Psych Reports no additional complaints Endo Reports no additional complaints Brandon/Lymph Reports no additional complaints Aller/Immun Reports no additional complaints Office Procedures Cystoscopy Consent Discussed risk and benefit or proposed procedure with the patient. Information consent for procedure given to the patient. Discussed technical aspects, risks, benefits and alternatives in full. Addressed all of the patient's questions and concerns regarding the procedure. The patient demonstrated knowledge and understanding. They wish to proceed with this procedure. Preparation The patient was prepped in the usual manner. A porter marina was present and in the room. Genitalia was prepped with betadine solution in a sterile manner. Lidocaine Jelly 2% was placed into the urethra and 16Fr flexible Olympus cystoscope was inserted into the meatus after adequate lubrication. Procedure Details of procedure: A 16 fr flexible disposible cystoscope was placed transurethrally into the bladder. The right and left ureteral orifices were visualized. Botox 100 units was mixed with 10 cc of normal saline and injected transurethrally 1/2 cc to 1 cc per injection into the posterior bladder wall. The cystoscope was removed. Instilled bladder botox cocktail prior to botox injection done by Dr. Becerra. 14 fr catheter used to instill 20mls bupivicaine, 5mls lidocaine 2% and 2 lidocaine urojets. 38013 - Botox Injection, urethra or bladder DISPOSABLE SCOPE URO-N NEEDLE SCOPE Procedure code (CPT) selection complete Office Meds lidocaine HCl 2 % mucosal jelly in applicator Performing Provider: James Calderon MD Performing Location: [facility] [place] [facility] Administered by: Sky Reddy LPN on 12/05/23 10:44 Dose Route Admin Location Dispensed Lot Number Expiration Date NDC [employer] 10 mL intra-urethral 20 mL Assessment & Plan Assessment & Plan (1) Overactive bladder: Code(s): N32.81 - Overactive bladder Category: Medical Plan Schedule repeat office cystoscopy Botox injection 100 units q 4 month Orders: Orders AMB Cystoscopy Today N32.81 - Overactive bladder, R32 - Unspecified urinary incontinence Patient Instructions: The patient had an opportunity to ask questions regarding treatment plan. The patient expressed understanding and agreement with the above treatment plan. The patient is aware they should contact our office by phone for worsening of their current condition or the appearance of new symptoms. Compliance is encouraged with any medications and followup testing that is ordered. It is a privilege to be allowed the opportunity to participate in the urologic care of your patient. If you have any questions or concerns regarding treatment for the above conditions please do not hesitate to contact me. The office telephone contact is [phone]. This note is constructed in part using voice recognition software. While every effort has been made to ensure accuracy crap game box person errors may have been included. Yours sincerely, James Calderon MD Coding Level of Care Code Procedure Only Diagnoses Overactive bladder N32.81 CPT Codes Cystoscopy - CPT: 29406 - Botox Injection, urethra or bladder ([id number])
== END 2023-12-05 11:51 | disposition home or self-care (01) ==
PROVIDERS: PCP Internal Medicine; Visit Provider Urology
DX: N32.81 Overactive bladder (principal)
CPT/HCPCS: 52287

== ENCOUNTER → 2023-12-05 10:31 | Outpatient (BNVA) | payer OTHER, SELFPAY | PROVIDERS: PCP Internal Medicine; Visit Provider Urology | DX: N32.81 Overactive bladder (principal) | CPT/HCPCS: 52287; J0585 ==

== ENCOUNTER → 2023-12-06 14:23 | Outpatient (BNV) | payer OTHER, SELFPAY | PROVIDERS: PCP Internal Medicine; Referring Provider Internal Medicine; Visit Provider Internal Medicine | DX: D50.9 Iron deficiency anemia, unspecified (principal); N92.0 Excessive and frequent menstruation with regular cycle | CPT/HCPCS: 99204; 99213 ==

== ENCOUNTER 2024-02-01 09:33 | Outpatient (REF) | payer OTHER, SELFPAY ==
[2024-02-01 13:26] LABS: Appearance Urine Clear; Color Urine Yellow; Glucose Urine UA Negative (Negative); Leukocyte Esterase Urine Small (1+) (Negative); Nitrite Urine Negative (Negative); PH 5.5 (5.0-9.0); UMIC TRIGGER UA YES; Urine Blood Large (3+) (Negative); Urine Ketones Negative (Negative); Urine Protein 30 (1+) mg/dL (Neg-Trace)
[2024-02-01 13:29] LABS: Bacteria Urine Trace (None Seen); Hyaline Casts Urine 0-2 /LPF (0-2); RBC Urine >20 /HPF (0-2)
== END 2024-02-01 09:34 | disposition home or self-care (01) ==
LOC: HO.HMGCLDS 09:33
PROVIDERS: PCP Internal Medicine; Visit Provider Urology
DX: R32 Unspecified urinary incontinence (principal); N32.81 Overactive bladder
CPT/HCPCS: 81001; 87086

== ENCOUNTER 2024-02-17 09:30 | Outpatient (REF) | payer OTHER, SELFPAY ==
[2024-02-17 10:41] LABS: Appearance Urine Clear; Color Urine Yellow; Glucose Urine UA Negative (Negative); Leukocyte Esterase Urine Negative (Negative); Nitrite Urine Negative (Negative); PH 5.5 (5.0-9.0); Urine Blood Negative (Negative); Urine Ketones Negative (Negative); Urine Protein Negative (Neg-Trace)
[2024-02-17 10:45] LABS: Bacteria Urine 2+ (None Seen); Hyaline Casts Urine 0-2 /LPF (0-2); RBC Urine 0-2 /HPF (0-2); WBC Urine 0-5 /HPF (0-5)
== END 2024-02-17 09:31 | disposition home or self-care (01) ==
LOC: HO.HMGCLDS 09:30
PROVIDERS: PCP Internal Medicine; Visit Provider Urology
DX: N32.81 Overactive bladder (principal); R32 Unspecified urinary incontinence
CPT/HCPCS: 81001; 87086

== ENCOUNTER 2024-03-14 11:41 | Outpatient (REF) | payer OTHER, SELFPAY ==
[2024-03-14 13:33] LABS: Appearance Urine Cloudy; Color Urine Yellow; Glucose Urine UA Negative (Negative); Leukocyte Esterase Urine Trace (Negative); Nitrite Urine Negative (Negative); PH 6.5 (5.0-9.0); Specific Gravity - Urine 1.015 (1.005-1.025); UMIC TRIGGER UA YES; Urine Blood Trace (Negative); Urine Ketones Negative (Negative); Urine Protein Negative (Neg-Trace)
[2024-03-14 13:56] LABS: Bacteria Urine 2+ (None Seen); Hyaline Casts Urine 0-2 /LPF (0-2)
== END 2024-03-14 11:42 | disposition home or self-care (01) ==
LOC: HO.HMGCLDS 11:41
PROVIDERS: PCP Internal Medicine; Visit Provider Urology
DX: R32 Unspecified urinary incontinence (principal)
CPT/HCPCS: 81001; 87086

== ENCOUNTER 2024-07-30 11:39 | Outpatient (AMB) | payer OTHER, SELFPAY ==
--- NOTE | 2024-07-30 11:41 | MHC.OFFVIS ---
Intake Visit Reasons: Discuss Botox Intake Note: Patient is Present for Telephone Follow Up to discuss Botox Injection Urology Med: Macrobid(After [place]) Antibiotic Allergy: None Blood Thinner: None Agent Ticketing Gate Required: No Accompanied by: Self / Same As Patient Allergies tree nut Allergy (Severe, Verified 07/30/24 11:47) Anaphylaxis hyoscyamine Allergy (Intermediate, Verified 07/30/24 11:47) itchy throat/ears/nose Medication List - Last Reconciled 07/30/24 by James Calderon MD aripiprazole 5 mg PO DAILY bupropion HCl XL 300 mg PO DAILY duloxetine 60 mg PO DAILY ferrous sulfate 27 mg PO DAILY lamotrigine 100 mg PO DAILY nitrofurantoin monohyd/m-cryst 100 mg (Macrobid) 100 mg PO DAILY PRN 30 days HPI Comments Details: 07/30/24--Valery presents for telehealth fu. She has been followed for OAB symptoms, treatment with Botox. She had to postpone scheduled repeat botox due to surgical procedure, pt is s/p laparoscopic hysterectomy in March, she states she has been cleared by TELEVISION PRODUCTION CLERK to proceed with return to all activities. She states she has urgency q 1-1.5 hrs. Denies dysuria. 12/05/23--Valery is here for repeat Botox 100 units. She states that at 4 1/2 months she is noticing the urgency is stronger. Discussed to sched next botox in 4 months. Botox 100 units bladder injection today. Pt tolerated procedure well 10/24/23--Valery is a 47-year-old female who presents today to the office for a follow-up. She is followed for overactive bladder and has had benefit in symptom release with bladder Botox injection 100 units. Last treatment was 05/11/2023. She states she is noting more urgency. Urinalysis today leukocytes negative blood negative. We will schedule repeat Botox 100 units. I will prescribe Bactrim and Pyridium to start 2 days before the procedure. 05/11/2023--She is followed today for cystoscopy procedure/botox injection. She has been on pyridium and Bactrim 2 dys prior and will complete a 5 day course of bactrim. Botox 100 units bladder injection today. FU with nurse for bladder scan PVR in one month FU with me in 4 months [facility] Medical History Microcytic hypochromic anemia Chronic fatigue Headache History of abnormal uterine bleeding Urinary incontinence Recurrent major depression in remission Vitamin D deficiency Iron deficiency anemia Surgical History Status post total hysterectomy and bilateral salpingo-oophorectomy Hx of cystoscopy History of hysteroscopy History of loop electrical excision procedure (LEEP) Family History Father Bipolar 1 disorder High cholesterol Diabetes mellitus Mother No problems noted. Social History Household Members: Family Housing: House Alcohol intake: current Patient Tobacco Use Status: Never used Tobacco e-Cigarette/Vaping Use: Never Used Substance Use Type: Marijuana service: No Current occupational status: unemployed Cognitive needs: No Hearing needs: No Vision needs: No Telehealth Telehealth Telehealth Platform: [employer] Location of provider rendering services: practice address Location of patient: address on file Patient Identification confirmed using: Name, : Yes Telehealth method: video Patient verbally consented to treatment: Yes Patient verbally consented to billing insurance company: Yes Patient informed of any privacy concerns related to visit: Yes Assessment & Plan Assessment & Plan (1) Overactive bladder: Code(s): N32.81 - Overactive bladder Category: Medical Plan Schedule repeat cysto bladder botox 100 units in the office. Patient Instructions: The patient had an opportunity to ask questions regarding treatment plan. The patient expressed understanding and agreement with the above treatment plan. The patient is aware they should contact our office by phone for worsening of their current condition or the appearance of new symptoms. Compliance is encouraged with any medications and followup testing that is ordered. It is a privilege to be allowed the opportunity to participate in the urologic care of your patient. If you have any questions or concerns regarding treatment for the above conditions please do not hesitate to contact me. The office telephone contact is [phone]. This note is constructed in part using voice recognition software. While every effort has been made to ensure accuracy technical instructor course developer errors may have been included. Yours sincerely, James Calderon MD Coding Level of Care Code Est Pt Level 3 (50594) Diagnoses Overactive bladder N32.81
--- OUTSIDE RECORDS SUMMARY | 2024-07-30 13:29 | XMS_ITS ---
Author Organization [facility] Address [address] [place] [address] Care Team Providers Care Ruby Developer Name Role Phone Echo MONTANO, Kelly Primary Care Provider Leo Saini [phone] REASON FOR VISIT screening Encounters Encounter Location Date Provider Diagnosis [facility] [place] [address] [place] [id number] 08/08/2023 Leo Blandon Encounter for scre ening colonoscopy Z12.11 and Other hemorrhoids K64.8 ASSESSMENTS Encounter Date Diagnosis Assessment Notes Treatment Notes Treatment Clinical Notes 08/08/2023 Encounter for screening colonoscopy (ICD-10 - Z12.11) 08/08/2023 Other hemorrhoids (ICD-10 - K64.8) PLAN OF TREATMENT No Information
--- OUTSIDE RECORDS SUMMARY | 2024-07-30 13:29 | XMS_ITS ---
Author Organization [facility] Address [address] [place] [id number] Care Team Providers Care Salesperson Stereo Equipment Name Role Phone Echo MONTANO, Kelly Primary Care Provider Leo Saini [phone] ALLERGIES Allergen (clinical drug ingredient) Drug/Non Drug Allergy documented on EMR Reaction Allergy Type Onset Date Status Tree Nuts Unknown Allergy Active hyoscyamine Hyoscyamine Unknown Drug Allergy Act giorgi REASON FOR VISIT Patient presents today for ibs, epigastric pain MEDICATIONS Medication SIG (Take, Route, Frequency, Duration) Notes Start Date End Date Status PROzac 20 MG 1 capsule Orally Onc e a day for 30 day(s) Active Dicyclomine HCl 10 MG TAKE 1-2 CAPSULES BY MOUTH EVERY 6 HOURS NEEDED FOR ABDOMINAL PAIN/CRAMPS/DISCOMFORT for 7 Active Tolterodine Tartrate ER 4 MG TAKE 1 TABLET ORALLY DAILY FOR 30 DAYS Oral for 30 Active ARIPiprazole 2 MG TAKE 1 TABLET BY GIAN TH EVERY DAY DIRECTED Oral for 90 Active buPROPion HCl ER (XL) 300 MG TAKE 1 TABLET BY MOUTH EVERY DAY DIRECTED Oral for 90 Active lamoTRIgine 100 MG TAKE 1 TABLET BY GIAN TH EVERY DAY DIRECTED Oral for 90 Active SOCIAL HISTORY Tobacco Use: Social History Observation Description Date Details (start date - stop date) Never Smoker NA - NA Sex Assigned At : Social History Observation Description Sex Assigned At Unknown Tobacco Use/Smoking Question Answer Notes Patient is a nonsmoker Alcohol Screen Question Answer Notes Did you have a drink contain ing alcohol in the past year? Yes How often did you have a dri nk containing alcohol in the past year? Monthly or less (1 point) How many drinks did you have on a typical day when you were drinking in the past year? 1 or 2 drinks (0 point) How often did you have 6 or more drinks on one occasion in the past year? Never (0 point) Points 1 Interpretation Negative PROBLEMS Problem Type ICD Code Onset Dates Problem Status W/U Status Risk SNOMED Code Notes Problem Colon cancer screening (Z12.11) Active confirmed 399805936 Problem Iron deficiency anemia, unspecified iron deficiency anemia type (D50.9) Active confirmed 88816415 VITAL SIGNS Temperature 97.7 degrees Fahrenheit 05/17/20 23 Blood pressure systolic 00 mm Hg 05/17/20 23 Blood pressure diastolic 00 mm Hg 023 Height 61 in 05/17/2023 Weight 129 lbs 05/17/2023 BMI 24.37 kg/m2 05/17/2023 Encounters Encounter Location Date Provider Diagnosis [facility] [address] [place] [address] 05/17/2023 Leo Blandon Colon cancer screeni ng Z12.11 ; Irritable bowel syndrome with constipation K58.1 and Iron deficiency anemia, unspecified iron deficiency anemia type D50.9 ASSESSMENTS Encounter Date Diagnosis Assessment Notes Treatment Notes Treatment Clinical Notes 05/17/2023 Colon cancer screening (ICD-10 - Z12.11) 05/17/2023 Irritable bowel syndrome with constipation (ICD-10 - K58.1) 05/17/2023 Iron deficiency anemia, unspecified iron deficiency anemia type (ICD-10 - D50.9) Speak with Dr. Dodge about oral Iron or Iron infusions PLAN OF TREATMENT Treatment Notes Assessment Notes Iron deficiency anemia, unsp ecified iron deficiency anemia type Speak with Dr. Dodge about oral Iron o r Iron infusions Future Test Test Name Order Date COLONOSCOPY 05/17/2023 Next Appt Details Follow Up: prn, Reason: Progress Notes * Examination Category Sub-Category Detail Notes General Examination GENERAL APPEARANCE: pleasant , well nourished, well developed, in no acute distress HEAD: EYES: sclera non-icteric EARS: NOSE: THROAT: NECK/THYROID: no cervical lymphade nopathy, neck supple HEART: S1, S2 normal CHEST: LUNGS: clear to auscultatio n bilaterally ABDOMEN: normal bowel sounds, no guarding or rigidity, no guarding or rigidity, no masses palpable, soft, nontender, nondistended NEUROLOGIC: alert and oriented SKIN: nonjaundiced, no spi watson angiomata EXTREMITIES: no edema PERIPHERAL PULSES: BACK: BREASTS: MUSCULOSKELETAL: MALE GENITOURINARY: LYMPH NODES: RECTAL EXAM: FEMALE GENITOURINARY: ORAL CAVITY: mucosa moist
--- OUTSIDE RECORDS SUMMARY | 2024-07-30 13:29 | XMS_ITS | Patient Health Record ---
Author Organization [facility] Address [address] [place] [address] Care Team Providers Care Cookee Name Role Phone Echo MONTANO, Kelly Primary Care Provider Leo Saini Unavailable [phone] ALLERGIES Allergen (clinical drug ingredient) Drug/Non Drug Allergy documented on EMR Reaction Allergy Type Onset Date Status Tree Nuts Unknown Allergy Active hyoscyamine Hyoscyamine Unknown Drug Allergy Act giorgi RESULTS Component Value Reference Range Notes Ur Preg Test Reviewed date:08/08/2023 07:14:32 PM Interpretation: Performing Lab:[facility], [address] [place] [phone] Notes/Report: Urine NEGATIVE NEGATIVE This test was developed to detect early . False negative results may occur after the 5th - 7th week of when using this test method. If clinically indicated, consider a serum hCG. REASON FOR REFERRAL No Information MEDICATIONS Medication SIG (Take, Route, Frequency, Duration) [...] EVERY DAY DIRECTED Oral for 90 Active IMMUNIZATIONS Vaccine Route Administration Date Status Comme nts Influenza Unknown 08/27/2021 Refused SOCIAL HISTORY Tobacco Use: Social History Observation [...] Problem Colon cancer screening (Z12.11) Active confirmed 257989925 Problem Epigastric abdominal pain (R10.13) Active confirmed 02097474 Problem Iron deficiency anemia, unspecified iron deficiency anemia type (D50.9) Active confirmed 52055385 Problem Abnormal liver ultrasound (R93.2) Active confirmed 62556030875445788 Problem Abdominal pain, generalized (R10.84) Active confirmed 181190135 Problem RUQ abdominal pain (R10.11) Active confirmed 880344131 Problem Irritable bowel syndrome with constipation (K58.1) Active confirmed 495013936 Problem Diarrhea of presumed infectious origin (R19.7) Active confirmed 39846774 Encounters Encounter Location Date Provider [place] [facility] [place] [address] [place] [id number] 08/08/2023 Leo Blandon Encounter for scre ening colonoscopy Z12.11 and Other hemorrhoids K64.8 ASSESSMENTS Encounter Date Diagnosis Assessment Notes Treatment Notes Treatment Clinical Notes 08/08/2023 Encounter for screening colonoscopy (ICD-10 - Z12.11) 08/08/2023 Other hemorrhoids (ICD-10 - K64.8) PLAN OF TREATMENT Pending Test Test Name Order Date CHEM 7 PROFILE 12/27/2022 LIVER PROFILE 08/27/2021 LIVER PROFILE 12/27/2022 CRP 12/27/2022 CBC w DIFF 08/27/2021 CBC w DIFF 12/27/2022 SED RATE (ESR) 12/27/2022 PROTHROMBIN TIME (PT, INR) 09/23/2021 US ABD 08/27/2021 STOOL WBC 12/27/2022 C DIFFICILE RFLX PCR 12/27/2022 Liver Fibrosis Pnl 09/23/2021 US abdomen marcum w elastography 09/23/2021 Future Test Test Name Order Date UPPER GI ENDOSCOPY 08/27/2021 COLONOSCOPY 05/17/2023 Insurance Providers Payer Name Payer Address Payer Phone Subscriber Number Group Number Insured Name Patient Relationship to Insured Coverage Start Date Coverage End Date [facility] [address] [facility] [place] [address] [id number] HALLE VEE Self - patient is the insured MEDICAL (GENERAL) HISTORY Medical History History ICD Code Denies GA,DM,CVA,Lung disease,renal dise ase IBS-neg. celiac labs in 2008 Depression Urinary incontinence EGD in 09/2021-small hiatal h ernia, but otherwise normal exam. Duodenal biopsies were negative for celiac disease and gastric biopsies were negative for H. pylori Abdominal ultrasound was neg ative for gallstones, but raised a suspicion of some coarsening of the liver--followup LFTs, ultrasound of the liver with elastography, and a serum liver fibrosis score were all in the normal range Iron deficiency anemia due to heavy mens es-scheduled for a D&C on 01/08/2022 Botox in bladder every 6 months Norovirus in 12/2022 with associated stephany roenteritis Surgical History Surgery Date(Month/Year) LEEP procedure D&C having future D &C 2023
== END 2024-07-30 12:03 | disposition home or self-care (01) ==
LOC: HO.HUSH 11:39
PROVIDERS: PCP Internal Medicine; Visit Provider Urology
DX: N32.81 Overactive bladder (principal)
CPT/HCPCS: 99213

== ENCOUNTER 2024-09-25 09:59 | Outpatient (AMB) | payer OTHER, SELFPAY ==
--- NOTE | 2024-09-25 10:33 | MHC.OFFVIS ---
Intake Visit Reasons: Botox Intake Note: Patient is Present for Botox Urology Med: Macrobid(After [place]) Antibiotic Allergy: None Blood Thinner: None Rock Breaker Required: No Accompanied by: Self / Same As Patient Allergies tree nut Allergy (Severe, Verified 09/25/24 10:34) Anaphylaxis hyoscyamine Allergy (Intermediate, Verified 09/25/24 10:34) itchy throat/ears/nose HPI Comments Details: 09/25/24--Valery is here for repeat Botox 100 units. Botox 100 units bladder injection today. Pt tolerated procedure well. PFSH Medical History Microcytic hypochromic anemia Chronic fatigue Headache History of abnormal uterine bleeding Urinary incontinence Recurrent major depression in remission Vitamin D deficiency Iron deficiency anemia Surgical History Status post total hysterectomy and bilateral salpingo-oophorectomy Hx of cystoscopy History of hysteroscopy History of loop electrical excision procedure (LEEP) Family History Father Bipolar 1 disorder High cholesterol Diabetes mellitus Mother No problems noted. Social History Household Members: Family Housing: House Alcohol intake: current Patient Tobacco Use Status: Never used Tobacco e-Cigarette/Vaping Use: Never Used Substance Use Type: Marijuana service: No Current occupational status: unemployed Cognitive needs: No Hearing needs: No Vision needs: No Office Procedures Cystoscopy Consent Discussed risk and benefit or proposed procedure with the patient. Information consent for procedure given to the patient. Discussed technical aspects, risks, benefits and alternatives in full. Addressed all of the patient's questions and concerns regarding the procedure. The patient demonstrated knowledge and understanding. They wish to proceed with this procedure. Preparation The patient was prepped in the usual manner. A collection systems technician was present and in the room. Genitalia was prepped with betadine solution in a sterile manner. Lidocaine Jelly 2% was placed into the urethra and 16Fr flexible Olympus cystoscope was inserted into the meatus after adequate lubrication. Procedure 12 fr straight cath used to drain bladder and instill botox cocktail: 20 mls bupivicaine 5 mls lidocaine 2% 2 lidocaine urojets 15 minute timer set after botox cocktail Botox 100 units reconstituted with 0.9% sodium chloride preservative free - to be injected by Dr. Calderon PREOP DIAGNOSIS: OAB POSTOP DIAGNOSIS: OAB PROCEDURE: CYSTOSCOPY, BLADDER BOTOX INJECTION 100 UNITS ANESTHESIA: Local Details of procedure: A disposible flexible 16 fr cystoscope was placed transurethrally into the bladder. The right and left ureteral orifices were visualized. There were mild trabeculations noted. There were no suspicious bladder lesions seen. The Botox 100 units was mixed with 10 cc of normal saline and transurethral injections were placed into the posterior wall of the bladder. Complications: None [id number] - Botox Injection, urethra or bladder DISPOSABLE SCOPE URO-N NEEDLE SCOPE Procedure code (CPT) selection complete Office Meds lidocaine HCl 2 % mucosal jelly in applicator Performing Provider: James Calderon MD Performing Location[facility] [place] [facility] Administered by: Anupama Townsend RN on 09/25/24 11:23 Dose Route Admin Location Dispensed Lot Number Expiration Date N[employer] Science Education Professor 20 mL intra-urethral 20 mL ciprofloxacin HCl 500 mg tablet Performing Provider: James Calderon MD Performing Location: [facility] [place] [facility] Administered by: Anupama Townsend RN on 09/25/24 11:23 Dose Route Admin Location Dispensed Lot Number Expiration Date [employer] Professor 500 mg PO 1 tab Comments: Botox [address] Becerra. Lot#[id number] Exp: 10/2026 Results AMB Urinalysis, Automated UA Leukoctes 0 Ellen/uL Last Edit by Yadira Harrington on 09/25/24 16:30 UA Nitrite Negative Last Edit by Yadira Harrington on 09/25/24 16:30 UA Urobilinogen 0.2 mg/dL Last Edit by Yadira Harrington on 09/25/24 16:30 UA Protein 0 mg/dL Last Edit by Yadira Harrington on 09/25/24 16:30 UA pH 6.0 Last Edit by Yadira Harrington on 09/25/24 16:30 UA Blood 0 Orlando/uL Last Edit by Yadira Harrington on 09/25/24 16:30 UA Specific Sheldon 1.020 Last Edit by Yadira Harrington on 09/25/24 16:30 UA Ketone Negative Last Edit by Yadira Harrington on 09/25/24 16:30 UA Bilirubin 0 mg/dL Last Edit by Yadira Harrington on 09/25/24 16:30 UA Glucose 0 mg/dL Last Edit by Yadira Harrington on 09/25/24 16:30 Results Reviewed Results Reviewed: Laboratory Last Values Urine pH (Auto) 6.0 09/25/24 16:18 Specific Sheldon (Auto) 1.020 09/25/24 16:18 Urine Protein (Auto) 0 mg/dL 09/25/24 16:18 Glucose (UA)(Auto) 0 mg/dL 09/25/24 16:18 Urine Ketones (Auto) Negative 09/25/24 16:18 Urine Blood (Auto) 0 Orlando/uL 09/25/24 16:18 Urine Nitrite (Auto) Negative 09/25/24 16:18 Urine Bilirubin (Auto) 0 mg/dL 09/25/24 16:18 Urine Urobilinogen (Auto) 0.2 mg/dL 09/25/24 16:18 Leukocyte Esterase (Auto) 0 Ellen/uL 09/25/24 16:18 Assessment & Plan Assessment & Plan (1) Overactive bladder: Code(s): N32.81 - Overactive bladder Category: Medical Plan Post procedure abx sent to pharm Orders: Orders AMB Urinalysis Automated 09/25/24 Z13.9 - Encounter for screening, unspecified AMB Cystoscopy 09/25/24 N32.81 - Overactive bladder Patient Instructions: The patient had an opportunity to ask questions regarding treatment plan. The patient expressed understanding and agreement with the above treatment plan. The patient is aware they should contact our office by phone for worsening of their current condition or the appearance of new symptoms. Compliance is encouraged with any medications and followup testing that is ordered. It is a privilege to be allowed the opportunity to participate in the urologic care of your patient. If you have any questions or concerns regarding treatment for the above conditions please do not hesitate to contact me. The office telephone contact is [phone]. This note is constructed in part using voice recognition software. While every effort has been made to ensure accuracy retail wireless associate errors may have been included. Yours sincerely, James Calderon MD Coding Level of Care Code Procedure Only Diagnoses Overactive bladder N32.81 CPT Codes Cystoscopy - CPT: 72615-[id number] ([id number]) Cystoscopy - CPT: 58498 - Botox Injection, urethra or bladder ([id number])
--- OUTSIDE RECORDS SUMMARY | 2024-09-25 11:22 | XMS_ITS | Clinical Summary ---
Author Organization [facility] [facility] lin Address [address] [place] [address] Care Team Providers Care [place] Cutter Name Role Phone Pcp, No Primary Care Provider [phone] Social History Tobacco Use Types Packs/Day Years Used Date Smoking Tobacco: Never Assessed Comments Unknown Sex and Gender Information Value Date Recorded Sex Assigned at Not on file Legal Sex Female 10:10 AM EST Gender Identity Not on file Sexual Orientation Not on file Plan of Treatment Health Maintenance Due Date Last Done Comments Colorectal Cancer: COLONOSCO PY Screening every 10 yrs (or Modifier) 1975 Depression: Screening Annual ly using PHQ-2/9 in Adults 18 yrs or above (or HM Modifier)([facility]) 1977 Hepatitis C Virus Infection in Adolescents and Adults: Screening (or Modifier) ([facility]) 11/06/1995 [facility] Screening Reminder: Annually for all adults ([facility]) 11/06/1995 Tobacco Smoking Cessation: i n Adults excluding Women: Behavioral and Pharmacotherapy Interventions ([facility]) 11/06/1995 Cervical Cancer Screenin-65 yrs of age (or Modifier) 1998 Cervical Cancer Screening: P ap every 3 yrs pts age 21-65 1998 Cervical Cancer: Pap Screeni ng with Modifier timing ([facility]) 1998 Cervical Cancer: hrHPV alone or with cotesting Pap for Pts 30-65yrs screening every 5yrs ([facility]) 1998 Colorectal Cancer Screening 45 -75 Yrs (or HM Modifier) 2022 Colorectal Cancer: FLEXIBLE SIGMOIDOSCOPY Screening every 5 yrs 2022 Colorectal Cancer: Fecal Immunochemical Test (FIT) Annually [facility] 2022 Colorectal Cancer: High-sensitivity gFOBT Screening Annually [facility] 2022 Colorectal Cancer: Stool Cologuard Screening every 3 yrs 2022 Colorectal Cancer:CT Colonography Screening every 5 yrs 2022 Lipid Screening: Every 5 yrs for Women aged 45+ (or HM Modifier) ([facility]) 11/06/2023 COVID-19 Vaccine Screening: Initial Series and Booster Status ([facility]) ( - 2023- season) 2024 Flu Vaccination: Yearly for ages 18mos through 64 years (or Modifier)([facility] ) 01/04/2025 DTaP/Tdap/Td Vaccines ([facility]) (3 - Td or Tdap) 06/17/2025 06/17/2015, 10/15/2012 Zoster/Shingles Vaccine Seri es Screening: Adults aged 18+ yrs (or HM Modifiers)([facility] ) (1 of 2) 11/06/2027 Pneumococcal Vaccination Screening: Pts 0-19 & 19-49 yrs of age ([facility]) Aged Out No longer eligible based on patient's age to complete this topic Medical Devices Not on file Insurance [facility] Care Teams [place] Cutter Relationship Specialty Start Date End Date Pcp, No PCP - General Family Medicine 08/07/20
--- OUTSIDE RECORDS SUMMARY | 2024-09-25 11:22 | XMS_ITS ---
Author Organization [facility] Address [address] [place] [id number] Care Team Providers Care Professional Security Officer Name Role Phone Echo MONTANO, Kelly Primary Care Provider Leo Saini [phone] Allergies Allergen (clinical drug ingredient) Drug/Non Drug Allergy documented on EMR Reaction Allergy Type Onset Date Status Tree Nuts Unknown Allergy Active hyoscyamine Hyoscyamine Unknown Drug Allergy Act giorgi REASON FOR VISIT Patient presents today for ibs, epigastric pain Medications Medication SIG (Take, Route, Frequency, Duration) Notes [...] EVERY DAY DIRECTED Oral for 90 Active Social History Tobacco Use: Social History Observation Description Date Details (start date - stop date) Never Smoker NA - NA Tobacco Use/Smoking Question Answer Notes Patient is [...] Never (0 point) Points 1 Interpretation Negative Section Notes: Nonsmoker; no sig alcohol Problems Problem Type SNOMED Code ICD Code Onset Dates Problem Status W/U Status Risk Notes Problem [id number] Colon cancer screening (Z12.11) Active confirmed Problem [id number] Iron deficiency anemia, unspecified iron deficiency anemia type (D50.9) Active confirmed Vital Signs Temperature 97.7 degrees Fahrenheit 05/17/20 23 Blood pressure systolic 00 mm Hg 05/17/20 23 Blood pressure diastolic 00 mm Hg 023 Height 61 in 05/17/2023 Weight 129 lbs 05/17/2023 BMI 24.37 kg/m2 05/17/2023 Encounters Encounter Location Date Provider Diagnosis [facility] [address] [place] [address] 05/17/2023 Leo Blandon Colon cancer screeni ng Z12.11 ; Irritable bowel syndrome with constipation K58.1 and Iron deficiency anemia, unspecified iron deficiency anemia type D50.9 Assessments Encounter Date Diagnosis (ICD Code) Assessment Notes Treatment Notes Treatment Clinical Notes Section Notes 05/17/2023 Colon cancer screening (ICD-10 - Z12.11) Overall, Valery appears very well. Her irritable bowel syndrome seems stable at the present time without any particular medication. I did advise her to maintain a healthy diet with fiber and plenty of fluids so as to maintain a fairly regular bowel regimen and avoid constipation. I did recommend a screening colonoscopy for her given her age of 47. We did review the rationale for that in regard to colon cancer prevention. Full consent was obtained from her for this, including the risks of bleeding and perforation. The procedure will be done with monitored anesthesia care. She was instructed to take 2 extra Dulcolax 2 days before the procedure and to eat very lightly 2 days before the procedure as well to hopefully facilitate a good clean out. We did discuss her anemia and I advised her to speak with you about arranging a hematology referral for possible iron infusions if she cannot tolerate any oral iron whatsoever. Valery was comfortable with this plan. Thank you again for allowing me to participate in Valery's care. I shall continue to keep you advised of her progress. 05/17/2023 Irritable bowel syndrome with constipation (ICD-10 - K58.1) Overall, Valery appears very well. Her irritable bowel syndrome seems stable at the present time without any particular medication. I did advise her to maintain a healthy diet with fiber and plenty of fluids so as to maintain a fairly regular bowel regimen and avoid constipation. I did recommend a screening colonoscopy for her given her age of 47. We did review the rationale for that in regard to colon cancer prevention. Full consent was obtained from her for this, including the risks of bleeding and perforation. The procedure will be done with monitored anesthesia care. She was instructed to take 2 extra Dulcolax 2 days before the procedure and to eat very lightly 2 days before the procedure as well to hopefully facilitate a good clean out. We did discuss her anemia and I advised her to speak with you about arranging a hematology referral for possible iron infusions if she cannot tolerate any oral iron whatsoever. Valery was comfortable with this plan. Thank you again for allowing me to participate in Valery's care. I shall continue to keep you advised of her progress. 05/17/2023 Iron deficiency anemia, unspecified iron deficiency anemia type (ICD-10 - D50.9) Speak with Dr. Dodge about oral Iron or Iron infusions Overall, Valery appears very well. Her irritable bowel syndrome seems stable at the present time without any particular medication. I did advise her to maintain a healthy diet with fiber and plenty of fluids so as to maintain a fairly regular bowel regimen and avoid constipation. I did recommend a screening colonoscopy for her given her age of 47. We did review the rationale for that in regard to colon cancer prevention. Full consent was obtained from her for this, including the risks of bleeding and perforation. The procedure will be done with monitored anesthesia care. She was instructed to take 2 extra Dulcolax 2 days before the procedure and to eat very lightly 2 days before the procedure as well to hopefully facilitate a good clean out. We did discuss her anemia and I advised her to speak with you about arranging a hematology referral for possible iron infusions if she cannot tolerate any oral iron whatsoever. Valery was comfortable with this plan. Thank you again for allowing me to participate in Valery's care. I shall continue to keep you advised of her progress. Plan Of Treatment Treatment Notes Assessment Notes Iron deficiency anemia, unsp ecified iron deficiency anemia type Speak with Dr. Dodge about oral Iron o r Iron infusions Future Test Test Name Order Date COLONOSCOPY 05/17/2023 Next Appt Details Follow Up: prn, Reason: Progress Notes * LORRI GARBERADOB: [birth year] (47 yo F)Acc No.[id number]:05/17/2023 Progress Notes Patient:?VALERY GARBER Provider:?Leo Blandon MD :1975???Age:47 Y???Sex:Female D ate:05/17/2023 Address:[address] [place], [place] [id number] Pcp:Kelly Dodge MD Subjective: * Chief Complaints: * ???Patient presents today fo r ibs, epigastric pain * HPI: ???incontinence:? I saw Valery in followup today in regard to her underlying history of irritable bowel syndrome, iron deficiency anemia, and discussion of colorectal cancer screening. ?I last saw Valery in January of 2022. She had been doing well up until just this past summer when she developed acute gastroenteritis with a stool specimen revealing Norovirus. She did recover from that within several days. Workup for that included a CBC showing her chronic anemia with a hemoglobin of 8.7 and MCV of 76. Other labs included a sedimentation rate of 13, normal LFTs, normal chemistries, normal C-reactive protein, normal amylase and lipase, and a fecal calprotectin level that was normal. She did go to the ER where she had a CT scan of the abdomen that was unremarkable other than questionable thickening of the colon wall. However, the study was done without any oral contrast and therefore that result was questionable according to the radiologist. ?She presently feels well. She describes her bowel movements are fairly regular with a bowel movement about every other day. She denies any hematochezia nor melena. She enjoys a good appetite, without any significant heartburn or dysphagia. She denies abdominal pain, jaundice, nor weight loss. She denies any known family history of colon cancer. ?In regard to her anemia she does describe that her menses remains heavy for one day of the cycle. She reports that she cannot tolerate oral iron due to GI upset and constipation. She has never received intravenous iron infusions. * ROS:?General/Constitutional:?Change in appetite?denies.?Chills?denies.?Fatigue?denies.?Ophthalmologic:?Comments?all negative.?ENT:?Comments?all negative.?Respiratory:?hemoptysis?denies.?Cough?denies.?Cardiovascular:?Chest pain?denies.?Orthopnea?denies.?Gastrointestinal:?Comments?See HPI for details.?Genitourinary:?Hematuria?denies.?Dysuria?denies.?Musculoskeletal:?Painful joints?denies.?Weakness?denies.?Skin:?Itching?denies.?Rash?denies.?Neurologic:?Headache?denies.?Seizures?denies.?Psychiatric:?Comments?all negative.? * Medical History:? * Surgical History:?JORGE watson D&C having future D &C 2023 * Hospitalization/Major Diagno stic Procedure:?No Hospitalization History. * Family History:?Father: dece ased.?Mother: alive.? No known hx of colon cancer. Sister had CCY. * Social History:?Tobacco Use:?Tobacco Use/Smoking?Patient is a?nonsmoker.?Drugs/Alcohol:?Alcohol Screen?Did you have a drink containing alcohol in the past year??Yes,?How often did you have a drink containing alcohol in the past year??Monthly or less (1 point), How many drinks did you have on a typical day when you were drinking in the past year??1 or 2 drinks (0 point),?How often did you have 6 or more drinks on one occasion in the past year??Never (0 point),?Points?1,?Interpretation?Negative.?Miscellaneous:?Marital status: . Occupation: Mother of 7 children. ???Nonsmoker; no sig alcohol. * Medications:?TakingPROzac 20 MG Capsule 1 capsule Orally Once a daylamoTRIgine 100 MG Tablet TAKE 1 TABLET BY MOUTH EVERY DAY DIRECTED Oral buPROPion HCl ER (XL) 300 MG Tablet Extended Release 24 Hour TAKE 1 TABLET BY MOUTH EVERY DAY DIRECTED Oral ARIPiprazole 2 MG Tablet TAKE 1 TABLET BY MOUTH EVERY DAY DIRECTED Oral Tolterodine Tartrate ER 4 MG Capsule Extended Release 24 Hour TAKE 1 TABLET ORALLY DAILY FOR 30 DAYS Oral Dicyclomine HCl 10 MG Capsule TAKE 1-2 CAPSULES BY MOUTH EVERY 6 HOURS NEEDED FOR ABDOMINAL PAIN/CRAMPS/DISCOMFORT Medication List reviewed and reconciled with the patientTaking PROzac 20 MG Capsule 1 capsule Orally Once a dayTaking lamoTRIgine 100 MG Tablet TAKE 1 TABLET BY MOUTH EVERY DAY DIRECTED Oral Taking buPROPion HCl ER (XL) 300 MG Tablet Extended Release 24 Hour TAKE 1 TABLET BY MOUTH EVERY DAY DIRECTED Oral Taking ARIPiprazole 2 MG Tablet TAKE 1 TABLET BY MOUTH EVERY DAY DIRECTED Oral Taking Tolterodine Tartrate ER 4 MG Capsule Extended Release 24 Hour TAKE 1 TABLET ORALLY DAILY FOR 30 DAYS Oral Taking Dicyclomine HCl 10 MG Capsule TAKE 1-2 CAPSULES BY MOUTH EVERY 6 HOURS NEEDED FOR ABDOMINAL PAIN/CRAMPS/DISCOMFORT Medication List reviewed and reconciled with the patient * Allergies:?HyoscyamineTree N krzysztof[Allergies Verified] Objective: * Vitals:?Wt: 129 lbs, Ht: 61 in, BMI:24.37 Index, BP: 00/00 mm Hg, Temp: 97.7. * Examination: ???General Examination: ?GENERAL APPEARANCE:?pleasant, well nourished, well developed, in no acute distress.?EYES:?sclera non-icteric.?ORAL CAVITY:?mucosa moist.?NECK/THYROID:?no cervical lymphadenopathy, neck supple.?SKIN:?nonjaundiced, no spider angiomata.?HEART:?S1, S2 normal.?LUNGS:?clear to auscultation bilaterally.?ABDOMEN:?normal bowel sounds, no guarding or rigidity, no guarding or rigidity, no masses palpable, soft, nontender, nondistended.?EXTREMITIES:?no edema.?NEUROLOGIC:?alert and oriented.? Assessment: * Assessment: 1.?Irritable bowel syndrome with constipation - K58.1 (Primary)?2.?Colon cancer screening - Z12.11?3.?Iron deficiency anemia, unspecified iron deficiency anemia type - D50.9? Overall, Valery appears very well. Her irritable bowel syndrome seems stable at the present time without any particular medication. I did advise her to maintain a healthy diet with fiber and plenty of fluids so as to maintain a fairly regular bowel regimen and avoid constipation. I did recommend a screening colonoscopy for her given her age of 47. We did review the rationale for that in regard to colon cancer prevention. Full consent was obtained from her for this, including the risks of bleeding and perforation. The procedure will be done with monitored anesthesia care. She was instructed to take 2 extra Dulcolax 2 days before the procedure and to eat very lightly 2 days before the procedure as well to hopefully facilitate a good clean out. We did discuss her anemia and I advised her to speak with you about arranging a hematology referral for possible iron infusions if she cannot tolerate any oral iron whatsoever. Valery was comfortable with this plan. Thank you again for allowing me to participate in Valery's care. I shall continue to keep you advised of her progress. Plan: * Treatment: 2.?Iron deficiency anemia, unspecified iron deficiency anemia type? Notes: Speak with Dr. Dodge about oral Iron or Iron infusions.?? * Procedure Codes:?3017F COLOR ECTAL CA SCREEN DOC [id number] TOBACCO [id number] BP SCR NOT PRFRM REC REASON NOS * Follow Up:?prn * * Sign off status: Completed true * Provider:?Leo Blandon MD Date:? 023 Generated for Nikko gaytan/Pearl/Maxime on:?09/25/2024 11:22 AM EDT History and Physical Notes * HPI (History of Present Illness) Category Sub-Category Detail Notes Category Not es incontinence I saw Valery in followup today in regard to her underlying history of irritable bowel syndrome, iron deficiency anemia, and discussion of colorectal cancer screening. I last saw Valery in January of 2022. She had been doing well up until just this past summer when she developed acute gastroenteritis with a stool specimen revealing Norovirus. She did recover from that within several days. Workup for that included a CBC showing her chronic anemia with a hemoglobin of 8.7 and MCV of 76. Other labs included a sedimentation rate of 13, normal LFTs, normal chemistries, normal C-reactive protein, normal amylase and lipase, and a fecal calprotectin level that was normal. She did go to the ER where she had a CT scan of the abdomen that was unremarkable other than questionable thickening of the colon wall. However, the study was done without any oral contrast and therefore that result was questionable according to the radiologist. She presently feels well. She describes her bowel movements are fairly regular with a bowel movement about every other day. She denies any hematochezia nor melena. She enjoys a good appetite, without any significant heartburn or dysphagia. She denies abdominal pain, jaundice, nor weight loss. She denies any known family history of colon cancer. In regard to her anemia she does describe that her menses remains heavy for one day of the cycle. She reports that she cannot tolerate oral iron due to GI upset and constipation. She has never received intravenous iron infusions. Examination Category Sub-Category Detail Notes Category Not es General Examination GENERAL APPEARANCE: pleasant , well [...]
--- OUTSIDE RECORDS SUMMARY | 2024-09-25 11:23 | XMS_ITS | Patient Health Record ---
Author Organization [facility] Address [address] [place] [id number] Care Team Providers Care Protection Chief [employer] Name Role Phone Echo MONTANO, Kelly Primary Care Provider Leo Saini Unavailable [phone] Allergies Allergen (clinical drug ingredient) Drug/Non Drug Allergy documented on EMR Reaction Allergy Type Onset Date Status Tree Nuts Unknown Allergy Active hyoscyamine Hyoscyamine Unknown Drug Allergy Act giorgi Reason For Referral No Information Medications Medication SIG (Take, Route, Frequency, Duration) [...] EVERY DAY DIRECTED Oral for 90 Active Immunizations Vaccine Route Administration Date Status Comme nts Influenza Unknown 08/27/2021 Refused Social History Tobacco Use: Social History Observation [...] Negative Section Notes: Nonsmoker; no sig alcohol Nonsmoker; no sig alcohol Nonsmoker; no sig alcohol Problems Problem Type SNOMED Code ICD Code Onset Dates Problem Status W/U Status Risk Notes Problem 257749127 Colon cancer screening (Z12.11) Active confirmed Problem 66639338 Epigastric abdominal pain (R10.13) Active confirmed Problem 42885700 Iron deficiency anemia, unspecified iron deficiency anemia type (D50.9) Active confirmed Problem 91984312211450082 Abnormal liver ultrasound (R93.2) Active confirmed Problem 998478864 Abdominal pain, generalized (R10.84) Active confirmed Problem 864577009 RUQ abdominal pain (R10.11) Active confirmed Problem 338462529 Irritable bowel syndrome with constipation (K58.1) Active confirmed Problem 58618933 Diarrhea of presumed infectious origin (R19.7) Active confirmed Plan Of Treatment Pending Test Test Name Order Date CHEM 7 PROFILE 12/27/2022 LIVER PROFILE 12/27/2022 LIVER PROFILE 08/27/2021 CRP 12/27/2022 CBC w DIFF 12/27/2022 CBC w DIFF 08/27/2021 SED RATE (ESR) 12/27/2022 PROTHROMBIN TIME (PT, [...] Insured Coverage Start Date Coverage End Date [facility] [address] [employer] [facility] [place] [id number] VEE GARBER Self - patient is the insured Medical (General) History Medical History History ICD Code Denies DC,DM,CVA,Lung disease,renal dise ase IBS-neg. celiac labs in [...]
--- OUTSIDE RECORDS SUMMARY | 2024-09-25 11:23 | XMS_ITS ---
Author Organization [facility] Address [address] [place] [id number] Care Team Providers Care Survey Chief Name Role Phone Echo MONTANO, Kelly Primary Care Provider Leo Saini [phone] REASON FOR VISIT screening Encounters Encounter Location Date Provider Diagnosis [facility] Outpatient [address] [place] [id number] 08/08/2023 Leo Blandon Encounter for scre ening colonoscopy Z12.11 and Other hemorrhoids K64.8 Assessments Encounter Date Diagnosis (ICD Code) Assessment Notes Treatment Notes Treatment Clinical Notes Section Notes 08/08/2023 Encounter for screening colonoscopy (ICD-10 - Z12.11) 08/08/2023 Other hemorrhoids (ICD-10 - K64.8) Plan Of Treatment No Information Progress Notes * LORRI GARBERADOB: [birth year] (48 yo F)Acc No.[id number]:08/08/2023 COLON WITH MAC Patient:?VEE GARBER Provider:?Leo Blandon MD :1975???Age:47 Y???Sex:Female D ate:08/08/2023 Address:[address] [place] [phone] Pcp:Kelly Dodge MD Subjective: * Chief Complaints: * ???1. Screening. * Medical History:? Objective: * Vitals:? Assessment: * Assessment: 1.?Encounter for screening c olonoscopy - Z12.11 (Primary)???2.?Other hemorrhoids - K64.8??? Plan: * Treatment: * Procedure Codes:?93633 DIAGN OSTIC COLONOSCOPY * * The named appointment provid er may or may not be the originator of this progress note, and it is not deemed complete until electronically signed by the appointment provider. Sign off status: Pending * Provider:?Leo Blandon MD Date:? 024 Generated for Nikko gaytan/Pearl/Maxime on:?09/25/2024 11:22 AM EDT
== END 2024-09-25 11:56 | disposition home or self-care (01) ==
LOC: HO.HUSH 10:00
PROVIDERS: PCP Internal Medicine; Visit Provider Urology
DX: N32.81 Overactive bladder (principal)
CPT/HCPCS: 52287

== ENCOUNTER → 2024-09-25 09:59 | Outpatient (BNVA) | payer OTHER, SELFPAY | PROVIDERS: PCP Internal Medicine; Visit Provider Urology | DX: N32.81 Overactive bladder (principal) | CPT/HCPCS: 52287; 81003 ==

== ENCOUNTER → 2024-10-09 13:06 | Outpatient (BNVA) | payer OTHER, SELFPAY | PROVIDERS: PCP Internal Medicine; Visit Provider Urology | DX: N32.81 Overactive bladder (principal) | CPT/HCPCS: 51798 ==

== ENCOUNTER 2025-01-17 12:56 | Outpatient (AMB) | payer OTHER, SELFPAY ==
--- OUTSIDE RECORDS SUMMARY | 2023-08-08 09:20 | XMS_ITS ---
Author Organization [facility] Address [address] [place] [id number] Care Team Providers Care Armature Rewinder Name Role Phone Kelly Dodge MD Primary Care Provider Leo Saini [phone] REASON FOR VISIT screening Encounters Encounter Location Date Provider Diagnosis [facility] [address] [place] [phone] 08/08/2023 Leo Blandon Encounter for scre ening colonoscopy Z12.11 and Other hemorrhoids K64.8 Assessments Encounter Date Diagnosis (ICD Code) Assessment Notes Treatment Notes Treatment Clinical Notes Section Notes 08/08/2023 Encounter for screening colonoscopy (ICD-10 - Z12.11) 08/08/2023 Other hemorrhoids (ICD-10 - K64.8) Plan Of Treatment No Information Progress Notes * LORRI GARBERADOB: 8 (49 yo F)Acc No.[id number]:08/08/2023 COLON WITH MAC Patient: VEE JUDD Provider: Kerwin Blandon MD :1975 A ge:47 Y S ex:Female Date:08/08/2023 Address:[address] [place] [address] Pcp:Kelly Dodge MD Subjective: * Chief Complaints: [...] 08/08/2023 Generated for Nikko gaytan/Pearl/Phoenixitting on: 0 01/17/2025 01:42 PM EDT
[2025-01-17 12:59] VITALS: BP 110/72; PULSE 71; TEMP 36.8; O2SAT 98; BMI 25.7
--- NOTE | 2025-01-17 12:59 | A.OFFPC_ITS ---
Vital Signs 01/17/25 12:59 Height 5 ft 1 in Weight 136 lb BMI 25.7 BP 110/72 Blood Pressure Location Rt brachial Position Sitting Pulse 71 Pulse Source Pulse Oximeter Temp 98.3 F Temp Source Oral Pulse Oximetry (%) 98 Oxygen Delivery Method Room Air Intake Visit Reasons: PE Intake Note: Pt here today for her PE: last mammogram 08/25/21 Allergies tree nut Allergy (Severe, Verified 01/17/25 13:12) Anaphylaxis hyoscyamine Allergy (Intermediate, Verified 01/17/25 13:12) itchy throat/ears/nose Medication List - Last Reconciled 01/17/25 by Kelly Dodge MD bupropion HCl XL 300 mg PO DAILY escitalopram oxalate (Lexapro) 10 mg PO DAILY lamotrigine 100 mg PO DAILY Tobacco use date assessed: 01/17/25 Dental Screening Dental Screen Date: 01/17/25 Did you have a dental visit in the last 12 months?: Yes Did you have a dental problem in the last 6 months where you did not have access to dental care?: No Was dental information given to patient?: Patient has dentist HPI PE HPI Details 49year old lady with history of depressi on, currently followed by Kiesha Lazar at [facility], history of iron-deficiency anemia, history of abnormal uterine bleeding, here today for her physical exam. She has been feeling well, juarez total laparoscopic hysterectomy with cervix removed and bilateral salpingectomy in March [address] Salvador in [facility] due to abnormal uterine bleeding. Been feeling well, with last CBC within normal limits.Overdue to [facility] screening mammogram, last done in 2021. Up-to-date with her screening colonoscopy done by Dr. Blandon in 2023, due again in 2033, internal hemorrhoids only seen during procedure. Has an overactive bladder, currently being [place] [facility] [place] and gets Botox injection every 6 months Wants to have a skin lesion on left side of face checked. Patient states that his has been there for years, but has progressively been getting bigger over the last year [facility] Medical History (Updated 01/17/25 @ 13:42 by Kelly Dodge MD) Skin lesion of face Hx of iron deficiency anemia History of abnormal uterine bleeding Recurrent major depression in remission Surgical History (Updated 01/17/25 @ 13:55 by Kelly Dodge MD) History of bilateral salpingectomy Hx of total hysterectomy Hx of cystoscopy History of hysteroscopy History of loop electrical excision procedure (LEEP) Family History (Updated 01/17/25 @ 13:11 by Talia Harrington [facility]) Father Bipolar 1 disorder High cholesterol Diabetes mellitus Substance use disorder Mental health disorder Mother No problems noted. Social History Household Members: Family Housing: House Alcohol intake: current Patient Tobacco Use Status: Never used Tobacco e-Cigarette/Vaping Use: Never Used Substance Use Type: Marijuana service: No Current occupational status: unemployed Cognitive needs: No Hearing needs: No Vision needs: No Questionnaire PHQ-9 Over the last 2 weeks, how often have you been bothered by any of the following problems? 1. Little interest or pleasure in doing things: not at all 2. Feeling down, depressed, or hopeless: not at all 3. Trouble falling or staying asleep, or sleeping too much: several days 4. Feeling tired or having little energy: several days 5. Poor appetite or overeating: not at all 6. Feeling bad about yourself - or that you are a failure or have let yourself or your family down: not at all 7. Trouble concentrating on things, such as reading the newspaper or watching television: not at all 8. Moving or speaking so slowly that other people could have noticed. Or the opposite - being so fidgety or restless that you have been moving around a lot more than usual: not at all 9. Thoughts that you would be better off or of hurting yourself in some way: not at all Total score: 2 Depression Screening Interpretation: Positive (Followed by Dr. Hardwick) Dep ression Screening Follow-up: Existing condition, In treatment and Community Mental Health Worker F/U Depression Screening Done: Yes 09771 - PHQ-9 Billing: Yes Source: Developed by Drs. Leo Pineda, Priscilla Gee, Ganesh Beck and colleagues, with an educational lo from [employer]. Thrive Questionnaire Date Thrive assessed: 07/05/24 I am a: Patient What is your living situation today?: I have a steady place to live Within the past 12 months, did the food you bought not last and you didn't have the money to get more?: Never true Within the past 12 months, did you worry whether your food would run out before you got money to buy more?: Never true Do you have trouble paying for medicines?: No Do you have trouble getting transportation to medical appointments?: No Do you have trouble paying your heating and electricity bill?: No Do you have trouble taking care of your child, family member or friend?: No Do you have trouble with day-to-day activities such as bathing, preparing meals, shopping, managing finances, etc.?: No Are you currently unemployed and looking for a job?: I choose not to answer this question Are you interested in more education?: No Please select the resources that you would like help with: None Currently or been in a relationship where the following occur: No concerns reported THRIVE Score: 0 AUDIT C Alcohol Use Questionnaire (AUDIT-C) 1. How often do you have a drink containing alcohol?: 2-4 times a month 2. How many drinks containing alcohol do you have on a typical day when you are drinking?: 1 or 2 3. How often do you have six or more drinks on one occasion?: Never Total Score: 2 GONZALEZ-7 AMB Questionnaire GONZALEZ-7 Date GONZALEZ - 7 assessed: 11/09/23 Source: Developed by Drs. Leo Pineda, Priscilla Gee, Ganesh Beck and colleagues, with an educational lo from [employer]. Review of Systems Const All systems reviewed & are unremarkable except as noted in HPI and below Reports no additional complaints Eyes Reports no additional complaints ENT Reports no additional complaints Card Reports no additional complaints Resp Reports no additional complaints GI Reports no additional complaints Reports as per HPI Musc Reports no additional complaints Skin/Breast Reports as per HPI Neuro Reports no additional complaints Psych Reports no additional complaints Endo Reports no additional complaints Brandon/Lymph Reports no additional complaints Aller/Immun Reports no additional complaints Physical exam (Primary Care) BMI result Body Mass Index 25.7 Tobacco/Smoking Status: Tobacco use Status Tobacco use date assessed 01/17/25 01/17/25 13:07 Patient Tobacco Use Status Never used Tobacco 01/17/25 13:02 e-Cigarette/Vaping Use Never Used 01/17/25 13:02 Depression Screening Interpretation: Positive (Followed by Dr. Hardwick) Depression Screening Follow-up: Existing condition, In treatment and Community Mental Health Worker F/U Thrive Assessment: Date of Thrive Assessment Date Thrive assessed 07/05/24 01/17/25 13:02 Currently or been in a relationship where the following occur: No concerns reported Advance Care Planning discussion: Completed/Scanned Date of discussion: 01/17/25 Who was present: Patient Forms completed: Health Care Proxy Time spent: 16-45 minutes Actual minutes spent: 2 Const General: cooperative, no acute distress and alert Nutritional Appearance: average body habitus Orientation/consciousness: patient oriented x3 Limitations: no limitations HENMT Other: Normocephalic atraumatic, Ears: TM's normal bilaterally and EAC's normal General nose exam: Normal external nose present and No nasal discharge present Mouth: Normal oral and palatal mucosa present and moist mucous membranes Eyes General: appearance normal, both eyes and all related structures Neck Neck: Yes full ROM, Yes no lymphadenopathy and Yes supple Chest Chest palpation & inspection: normal inspection of the chest Breast/axilla inspection: normal inspection of the breasts Breast/axilla palpation: normal palpation of the breasts Resp Effort & Inspection: normal respiratory effort Auscultation: clear to auscultation bilaterally Cardio Rate: regular rate Rhythm: regular rhythm Heart sounds: S1 normal heart sound present and S2 normal heart sound present GI Inspection: Yes obesity Palpation (GI): Soft to palpation, nontender, no guarding and no masses General: Yes no CVA tenderness and Yes deferred (Has appointment her OBGYN in March this year) Back/Spine/Pelvis Back: no CVA tenderness and No back tenderness Skin Other: asymmetric Hyperpigmented macular lesion with irregular borders on left upper cheek General skin exam: no rashes or lesions noted Neuro General: patient oriented x3, gait normal, tone normal, Normal light touch and pain sensation and no focal motor deficits Extrem General: Yes normal to inspection, Yes full ROM, Yes no joint enlargement, Yes no clubbing, cyanosis or edema, Yes no calf tenderness and Yes normal gait Psych Appearance: grossly normal and well kempt Mental Status: mental status grossly normal Speech and movement: Normal speech and movement present Affect: normal affect Coding Level of Care Code Est Pt Prev Care 40-64y(74674) Diagnoses Annual visit for general adult medical examination with abnormal findings Z00.01 Skin lesion of face L98.9 Recurrent major depression in remission F33.40 Hx of iron deficiency anemia Z86.2 Overactive bladder N32.81 Advance directive discussed with patient Z71.89 Additional Codes Vital Signs *Quality* - Advance Care Planning discussion: Completed/Scanned ([id number]) Vital Signs *Quality* - Time spent: 16-45 minutes ([id number]) PHQ-9 - 12618 - PHQ-9 Billing: Yes ([id number]) Assessment & Plan Assessment & Plan (1) Annual visit for general adult medical examination with abnormal findings: Code(s): Z00.01 - Encounter for general adult medical examination with abnormal findings Category: Medical Plan: Will check appropriate labs. Recommended dental visit every 6 months and regular eye exams, at least every 2 years, goes to [place] for her eye exam. Take adequate calcium in diet and vitamin-D 3 at 2000 IU per cap once a day, in addition to weight-bearing exercises to help maintain good muscle tone and weight control. Instructed to do self-breast exam, and recommended to get yearly mammogram, , ordered today. Reminded to get her yearly flu shot and COVID booster, up-to-date with Tdap. Up-to-date with her screening colonoscopy done by Dr. Blandon in 2023, repeat again in 2033 (2) Skin lesion of face: Code(s): L98.9 - Disorder of the skin and subcutaneous tissue, unspecified Category: Medical Plan: Stat referral made to [facility] dermatology for further evaluation and management (3) Recurrent major depression in remission: Comment: sees Dr Hardwick Code(s): F33.40 - Major depressive disorder, recurrent, in remission, unspecified Category: Medical Plan: Followed by Dr. Hardwick currently stable and controlled on bupropion, escitalopram and lamotrigine (4) Hx of iron deficiency anemia: Code(s): Z86.2 - Personal history of diseases of the blood and blood-forming organs and certain disorders involving the immune mechanism Category: Medical Plan: Will check CBC with iron profile (5) Overactive bladder: Code(s): N32.81 - Overactive bladder Category: Medical Plan: Followed by Home urology clinic, gets Botox injections every six-months (6) Advance directive discussed with patient: Code(s): Z71.89 - Other specified counseling Plan: Initiated the conversation about Advanced Directives. Advanced Directives help patients prepare for current and future decisions about their medical treatment and place of care. Discussed with patient that it is a process where a patients current condition and prognosis are reviewed, their wishes for information regarding their illness are elicited, and likely medical dilemmas are presented and options discussed. Healthcare proxy form completed today. The form can be amended as needed, reviewed yearly and make changes as needed Orders: Orders Complete Blood Count Auto Diff Today E55.9 - Vitamin D deficiency, unspecified, F33.40 - Major depressive disorder, recurrent, in remission, unspecified, R32 - Unspecified urinary incontinence, Z00.01 - Encounter for general adult medical examination with abnormal findings, Z86.2 - Personal history of diseases of the blood and blood-forming organs and certain disorders involving the immune mechanism Lipid Panel Today E55.9 - Vitamin D deficiency, unspecified, F33.40 - Major depressive disorder, recurrent, in remission, unspecified, R32 - Unspecified urinary incontinence, Z00.01 - Encounter for general adult medical examination with abnormal findings, Z86.2 - Personal history of diseases of the blood and blood-forming organs and certain disorders involving the immune mechanism Aspartate Amino Transferase Today E55.9 - Vitamin D deficiency, unspecified, F33.40 - Major depressive disorder, recurrent, in remission, unspecified, R32 - Unspecified urinary incontinence, Z00.01 - Encounter for general adult medical examination with abnormal findings, Z86.2 - Personal history of diseases of the blood and blood-forming organs and certain disorders involving the immune mechanism Vitamin D 25-OH Total Today E55.9 - Vitamin D deficiency, unspecified, F33.40 - Major depressive disorder, recurrent, in remission, unspecified, R32 - Unspecified urinary incontinence, Z00.01 - Encounter for general adult medical examination with abnormal findings, Z86.2 - Personal history of diseases of the blood and blood-forming organs and certain disorders involving the immune mechanism Basic Metabolic Panel Fasting Today E55.9 - Vitamin D deficiency, unspecified, F33.40 - Major depressive disorder, recurrent, in remission, unspecified, R32 - Unspecified urinary incontinence, Z00.01 - Encounter for general adult medical examination with abnormal findings, Z86.2 - Personal history of diseases of the blood and blood-forming organs and certain disorders involving the immune mechanism IRON PROFILE Today E55.9 - Vitamin D deficiency, unspecified, F33.40 - Major depressive disorder, recurrent, in remission, unspecified, R32 - Unspecified urinary incontinence, Z00.01 - Encounter for general adult medical examination with abnormal findings, Z86.2 - Personal history of diseases of the blood and blood-forming organs and certain disorders involving the immune mechanism Alanine Aminotransferase Today E55.9 - Vitamin D deficiency, unspecified, F33.40 - Major depressive disorder, recurrent, in remission, unspecified, R32 - Unspecified urinary incontinence, Z00.01 - Encounter for general adult medical examination with abnormal findings, Z86.2 - Personal history of diseases of the blood and blood-forming organs and certain disorders involving the immune mechanism MM tomosynthesis screening BI Today Z12.31 - Encounter for screening mammogram for malignant neoplasm of breast Referrals Dermatology Referral L98.9 - Disorder of the skin and subcutaneous tissue, unspecified Medications: New cetirizine 10 mg PO DAILY PRN 30 tabs 0RF allergy symptoms
--- OUTSIDE RECORDS SUMMARY | 2025-01-17 13:42 | XMS_ITS | Clinical Summary ---
Author Organization [facility] [employer] [facility] Address [address] [place] [address] Care Team Providers Care Brilliandeer Lopper Name Role Phone Pcp, No Primary Care Provider [phone] Social History Tobacco Use Types Packs/Day Years [...] Adults 18 yrs or above (or HM Modifier)([facility]) 11/06/1995 Hepatitis C Virus Infection in Adolescents and Adults: Screening (or Modifier) ([facility]) 11/06/1995 [facility] Screening Reminder: Annually for all adults ([facility]) 11/06/1995 Tobacco Smoking Cessation: i n Adults excluding Women: Behavioral and Pharmacotherapy Interventions ([facility]) 11/06/1995 Cervical Cancer Screenin-65 yrs of age (or Modifier) 1998 Cervical Cancer Screening: P ap every 3 yrs pts age 21-65 1998 Cervical Cancer: Pap Screeni ng with Modifier timing ([facility]) 1998 Cervical Cancer: hrHPV alone or with cotesting Pap for Pts 30-65yrs screening every 5yrs ([facility]) 1998 Colorectal Cancer Screening 45 -75 Yrs (or HM Modifier) 2022 Colorectal Cancer: FLEXIBLE SIGMOIDOSCOPY Screening every 5 yrs 2022 Colorectal Cancer: Fecal Immunochemical Test (FIT) Annually [facility] 2022 Colorectal Cancer: High-sensitivity gFOBT Screening Annually [facility] 2022 Colorectal Cancer: Stool Cologuard Screening every 3 yrs 2022 Colorectal Cancer:CT Colonography Screening every 5 yrs 2022 COVID-19 Vaccine Screening: Initial Series and Booster Status ([facility]) (2023- season) 2024 Flu Vaccination: Yearly for ages 18mos through 64 years (or Modifier)([facility]) 01/04/2025 DTaP/Tdap/Td Vaccines ([facility]) (3 - Td or Tdap) 06/17/2025 06/17/2015, 10/15/2012 Zoster/Shingles Vaccine Seri es Screening: Adults aged 18+ yrs (or HM Modifiers)([facility]) (1 of 2) 11/06/2027 Pneumococcal Vaccination Screening: Pts 0-19 & 19-49 yrs of age ([facility]) Aged Out No longer eligible based on patient's age to complete this topic Medical Devices Not on file Care Teams Brilliandeer Lopper Relationship Specialty Start Date End Date Pcp, No PCP - General Family Medicine 08/07/20
== END 2025-01-17 14:12 | disposition home or self-care (01) ==
LOC: HO.HMCC 12:56
PROVIDERS: PCP Internal Medicine; Visit Provider Internal Medicine
DX: Z00.01 Encounter for general adult medical examination with abnormal findings (principal); L98.9 Disorder of the skin and subcutaneous tissue, unspecified; F33.40 Major depressive disorder, recurrent, in remission, unspecified; Z86.2 Personal history of diseases of the blood and blood-forming organs and certain disorders involving the immune mechanism; N32.81 Overactive bladder; Z71.89 Other specified counseling; Z00.00 Encounter for general adult medical examination without abnormal findings

== ENCOUNTER → 2025-01-17 12:56 | Outpatient (BNVA) | payer OTHER, SELFPAY | PROVIDERS: PCP Internal Medicine; Visit Provider Internal Medicine | DX: Z00.01 Encounter for general adult medical examination with abnormal findings (principal); L98.9 Disorder of the skin and subcutaneous tissue, unspecified; F33.40 Major depressive disorder, recurrent, in remission, unspecified; N32.81 Overactive bladder; Z71.89 Other specified counseling; Z86.2 Personal history of diseases of the blood and blood-forming organs and certain disorders involving the immune mechanism | CPT/HCPCS: 96127 ==

== ENCOUNTER 2025-02-07 16:05 | Outpatient (AMB) | payer OTHER, SELFPAY ==
--- OUTSIDE RECORDS SUMMARY | 2023-08-08 09:20 | XMS_ITS ---
Author Organization [facility] Address [address] [place] [id number] Care Team Providers Care Shipping Receiving Clerk Name Role Phone Kelly Dodge MD Primary Care Provider Leo Saini [phone] REASON FOR VISIT screening Encounters Encounter Location Date Provider Diagnosis [facility] Outpatient [address] [place] [id number] 08/08/2023 Leo Blandon Encounter for scre ening colonoscopy Z12.11 and Other hemorrhoids K64.8 Assessments Encounter Date Diagnosis (ICD Code) Assessment Notes Treatment Notes Treatment Clinical Notes Section Notes 08/08/2023 Encounter for screening colonoscopy (ICD-10 - Z12.11) 08/08/2023 Other hemorrhoids (ICD-10 - K64.8) Plan Of Treatment No Information Progress Notes * LORRI GARBERADOB: 8 (49 yo F)Acc No.[id number]:08/08/2023 COLON WITH MAC Patient: VEE JUDD Provider: Kerwin Blandon MD :1975 A ge:47 Y S ex:Female Date:08/08/2023 Address:[address] [place] [phone] Pcp:Kelly Dodge MD Subjective: * Chief Complaints: * 1 . Screening. * Medical History: Objective: * Vitals: Assessment: * Assessment: 1. E ncounter for screening colonoscopy - Z12.11 (Primary) 2 . O ther hemorrhoids - K64.8 Plan: * Treatment: * Procedure Codes: 4 5378 DIAGNOSTIC COLONOSCOPY * * The named appointment provid er may or may not be the originator of this progress note, and it is not deemed complete until electronically signed by the appointment provider. Sign off status: Pending * Provider: Kerwin Blandon MD Date: 0 08/08/2023 Generated for Nikko gaytan/Pearl/Phoenixitting on: 0 02/07/2025 04:38 PM EDT
--- NOTE | 2025-02-07 16:05 | MHC.OFFVIS ---
Intake Visit Reasons: 4M follow up Intake Note: Patient is present via telehealth for 4m follow up Urology Med:None Antibiotic Allergy: None Blood Thinner: None Tester Food Products Required: No Accompanied by: Self / Same As Patient Allergies tree nut Allergy (Severe, Verified 02/07/25 16:08) Anaphylaxis hyoscyamine Allergy (Intermediate, Verified 02/07/25 16:08) itchy throat/ears/nose Medication List - Last Reconciled 02/07/25 by James Calderon MD bupropion HCl XL 300 mg PO DAILY cetirizine 10 mg PO DAILY PRN escitalopram oxalate (Lexapro) 10 mg PO DAILY lamotrigine 100 mg PO DAILY HPI Comments Details: 02/07/25--Valery is followed for overactive bladder symptoms she has done well with the bladder Botox 100 units. She had therapy last on 09/25/2024. The patient states the urgency has returned. She denies any UTI symptoms. We will reschedule office Botox 100 units. We will have her start Bactrim and Pyridium 2 days prior. 09/25/24--Valery is here for repeat Botox 100 units. Botox 100 units bladder injection today. Pt tolerated procedure well. 07/30/24--Valery presents for telehealth fu. She has been followed for OAB symptoms, treatment with Botox. She had to postpone scheduled repeat botox due to surgical procedure, pt is s/p laparoscopic hysterectomy in March, she states she has been cleared by [employer] to proceed with return to all activities. She states she has urgency q 1-1.5 hrs. Denies dysuria. 12/05/23--Valery is here for repeat Botox 100 units. She states that at 4 1/2 months she is noticing the urgency is stronger. Discussed to sched next botox in 4 months. Botox 100 units bladder injection today. Pt tolerated procedure well 10/24/23--Valery is a 47-year-old female who presents today to the office for a follow-up. She is followed for overactive bladder and has had benefit in symptom release with bladder Botox injection 100 units. Last treatment was 05/11/2023. She states she is noting more urgency. Urinalysis today leukocytes negative blood negative. We will schedule repeat Botox 100 units. I will prescribe Bactrim and Pyridium to start 2 days before the procedure. 05/11/2023--She is followed today for cystoscopy procedure/botox injection. She has been on pyridium and Bactrim 2 dys prior and will complete a 5 day course of bactrim. Botox 100 units bladder injection today. FU with nurse for bladder scan PVR in one month FU with me in 4 months [facility] Medical History Skin lesion of face Hx of iron deficiency anemia History of abnormal uterine bleeding Recurrent major depression in remission Surgical History History of bilateral salpingectomy Hx of total hysterectomy Hx of cystoscopy History of hysteroscopy History of loop electrical excision procedure (LEEP) Family History Father Bipolar 1 disorder High cholesterol Diabetes mellitus Substance use disorder Mental health disorder Mother No problems noted. Social History Household Members: Family Housing: House Alcohol intake: current Patient Tobacco Use Status: Never used Tobacco e-Cigarette/Vaping Use: Never Used Substance Use Type: Marijuana service: No Current occupational status: unemployed Cognitive needs: No Hearing needs: No Vision needs: No Review of Systems Const All systems reviewed & are unremarkable except as noted in HPI and below Reports no additional complaints Eyes Reports no additional complaints ENT Reports no additional complaints Card Reports no additional complaints Resp Reports no additional complaints GI Reports no additional complaints Reports as per HPI Musc Reports no additional complaints Skin/Breast Reports system reviewed and no additional complaints, except as documented Neuro Reports no additional complaints Psych Reports no additional complaints Endo Reports no additional complaints Brandon/Lymph Reports no additional complaints Aller/Immun Reports no additional complaints Telehealth Telehealth Telehealth Platform: [facility] Location of provider rendering services: practice address Location of patient: address on file Patient Identification confirmed using: Name, : Yes Telehealth method: voice only Patient verbally consented to billing insurance company: Yes Patient informed of any privacy concerns related to visit: Yes Minutes spent on Phone/Video with Pt.: 13 Assessment & Plan Assessment & Plan (1) Overactive bladder: Code(s): N32.81 - Overactive bladder Category: Medical Plan Repeat bladder Botox 100 units office procedure Patient Instructions: The patient had an opportunity to ask questions regarding treatment plan. The patient expressed understanding and agreement with the above treatment plan. The patient is aware they should contact our office by phone for worsening of their current condition or the appearance of new symptoms. Compliance is encouraged with any medications and followup testing that is ordered. It is a privilege to be allowed the opportunity to participate in the urologic care of your patient. If you have any questions or concerns regarding treatment for the above conditions please do not hesitate to contact me. The office telephone contact is [phone]. This note is constructed in part using voice recognition software. While every effort has been made to ensure accuracy waste transportation technician errors may have been included. Yours sincerely, James Calderon MD Coding Level of Care Code Tele Est Pt Level 3 (95041) Complex EM visit Add On G2211 Diagnoses Overactive bladder N32.81
--- OUTSIDE RECORDS SUMMARY | 2025-02-07 16:38 | XMS_ITS | Clinical Summary ---
Author Organization [facility] [employer] [facility] lin Address [address] [place] [address] Care Team Providers Care Railroad Dispatcher Name Role Phone Pcp, No Primary Care Provider [phone] Social History Tobacco Use Types Packs/Day Years [...] Adults 18 yrs or above (or HM Modifier)([facility]) 11/06/1995 Hepatitis C Virus Infection in Adolescents and Adults: Screening (or Modifier) ([facility]) 11/06/1995 [facility] Screening Reminder: Annually for all adults ([facility]) 11/06/1995 Tobacco Smoking Cessation: i n Adults excluding Women: Behavioral and Pharmacotherapy Interventions ([facility]) 11/06/1995 Cervical Cancer Screenin-65 yrs of age (or Modifier) 1998 Cervical Cancer Screening: P ap every 3 yrs pts age 21-65 1998 Cervical Cancer: Pap Screeni ng with Modifier timing ([facility]) 1998 Cervical Cancer: hrHPV alone or with cotesting Pap for Pts 30-65yrs screening every 5yrs ([facility]) 1998 Colorectal Cancer Screening 45 -75 Yrs (or HM Modifier) 2022 Colorectal Cancer: FLEXIBLE SIGMOIDOSCOPY Screening every 5 yrs 2022 Colorectal Cancer: Fecal Immunochemical Test (FIT) Annually [facility] 2022 Colorectal Cancer: High-sensitivity gFOBT Screening Annually [facility] 2022 Colorectal Cancer: Stool Cologuard Screening every 3 yrs 2022 Colorectal Cancer:CT Colonography Screening every 5 yrs 2022 Flu Vaccination: Yearly for ages 18mos through 64 years (or Modifier)([facility]) 01/04/2025 DTaP/Tdap/Td Vaccines ([facility]) (3 - Td or Tdap) 06/17/2025 06/17/2015, 10/15/2012 Zoster/Shingles Vaccine Seri es Screening: Adults aged 18+ yrs (or HM Modifiers)([facility]) (1 of 2) 11/06/2027 Pneumococcal Vaccination Screening: Pts 0-19 & 19-49 yrs of age ([facility]) Aged Out No longer eligible based on patient's age to complete this topic Medical Devices Not on file Care Teams Railroad Dispatcher Relationship Specialty Start Date End Date Pcp, No PCP - General Family Medicine 08/07/20
--- OUTSIDE RECORDS SUMMARY | 2025-02-07 16:38 | XMS_ITS | Patient Health Record ---
Author Organization [facility] Address [address] [place] [id number] Care Team Providers Care Sports Information Director Name Role Phone Echo MONTANO, Kelly Primary Care Provider Leo Saini Unavailable [phone] Allergies Allergen (clinical drug ingredient) Drug/Non Drug [...] Problem Status W/U Status Risk Notes Problem 106246705 Colon cancer screening (Z12.11) Active confirmed Problem 83551955 Epigastric abdominal pain (R10.13) Active confirmed Problem 65458752 Iron deficiency anemia, unspecified iron deficiency anemia type (D50.9) Active confirmed Problem [id number] Abnormal liver ultrasound (R93.2) Active confirmed Problem 958630516 Abdominal pain, generalized (R10.84) Active confirmed Problem 401614123 RUQ abdominal pain (R10.11) Active confirmed Problem 084430339 Irritable bowel syndrome with constipation (K58.1) Active confirmed Problem 54816065 Diarrhea of presumed infectious origin (R19.7) Active confirmed Plan Of Treatment Pending Test Test Name Order Date CHEM 7 PROFILE 12/27/2022 LIVER PROFILE 08/27/2021 LIVER PROFILE 12/27/2022 CRP 12/27/2022 CBC w DIFF 12/27/2022 CBC [...] Insured Coverage Start Date Coverage End Date [facility] [address] [facility] [place] [phone] [id number] VEE GARBER Self - patient is the insured Medical (General) History Medical History History ICD Code Denies GA,DM,CVA,Lung [...]
== END 2025-02-07 17:00 | disposition home or self-care (01) ==
LOC: HO.HUSH 16:05
PROVIDERS: PCP Internal Medicine; Visit Provider Urology
DX: N32.81 Overactive bladder (principal)
CPT/HCPCS: 99213; G2211

== ENCOUNTER 2025-03-08 10:15 | Outpatient (REF) | payer OTHER, SELFPAY ==
--- OUTSIDE RECORDS SUMMARY | 2025-03-08 11:06 | XMS_ITS | Clinical Summary ---
Author Organization [facility] [employer] & [facility] lin Address [address] [place] [address] Care Team Providers Care Pallet Rectifier Name Role Phone Pcp, No Primary Care Provider [phone] Social History Tobacco Use Types Packs/Day Years [...] Adults 18 yrs or above (or HM Modifier)([facility]) 11/06/1995 Hepatitis C Virus Infection in Adolescents and Adults: Screening (or Modifier) ([facility]) 11/06/1995 [facility] Screening Reminder: Annually for all adults ([facility]) 11/06/1995 Tobacco Smoking Cessation: i n Adults excluding Women: Behavioral and Pharmacotherapy Interventions ([facility]) 11/06/1995 Cervical Cancer Screenin-65 yrs of age (or Modifier) 1998 Cervical Cancer Screening: P ap every 3 yrs pts age 21-65 1998 Cervical Cancer: Pap Screeni ng with Modifier timing ([facility]) 1998 Cervical Cancer: hrHPV alone or with cotesting Pap for Pts 30-65yrs screening every 5yrs ([facility]) 1998 Colorectal Cancer Screening 45 -75 Yrs (or HM Modifier) 2022 Colorectal Cancer: FLEXIBLE SIGMOIDOSCOPY Screening every 5 yrs 2022 Colorectal Cancer: Fecal Immunochemical Test (FIT) Annually [facility] 2022 Colorectal Cancer: High-sensitivity gFOBT Screening Annually [facility] 2022 Colorectal Cancer: Stool Cologuard Screening every 3 yrs 2022 Colorectal Cancer:CT Colonography Screening every 5 yrs 2022 Flu Vaccination: Yearly for ages 18mos through 64 years (or Modifier)([facility]) 01/04/2025 COVID-19 Vaccine Screening: Initial Series and Booster Status ([facility]) ( - 2023- season) 2025 DTaP/Tdap/Td Vaccines ([facility]) (3 - Td or Tdap) 06/17/2025 06/17/2015, 10/15/2012 Zoster/Shingles Vaccine Seri es Screening: Adults aged 18+ yrs (or HM Modifiers)([facility]) (1 of 2) 11/06/2027 Pneumococcal Vaccination Screening: Pts 0-19 & 19-49 yrs of age ([facility]) Aged Out No longer eligible based on patient's age to complete this topic Medical Devices Not on file Care Teams Pallet Rectifier Relationship Specialty Start Date End Date Pcp, No PCP - General Family Medicine 08/07/20
--- OUTSIDE RECORDS SUMMARY | 2025-03-08 11:06 | XMS_ITS | Patient Health Record ---
Author Organization [facility] Address [address] [place] [id number] Care Team Providers Care Edi Consultant Name Role Phone Echo MONTANO, Kelly Primary Care Provider Leo Saini Unavailable [phone] Allergies Allergen (clinical drug ingredient) Drug/Non Drug [...] Problem Status W/U Status Risk Notes Problem 653470411 Colon cancer screening (Z12.11) Active confirmed Problem 69857324 Epigastric abdominal pain (R10.13) Active confirmed Problem 99317430 Iron deficiency anemia, unspecified iron deficiency anemia type (D50.9) Active confirmed Problem 87204299391952007 Abnormal liver ultrasound (R93.2) Active confirmed Problem 830261912 Abdominal pain, generalized (R10.84) Active confirmed Problem 137998168 RUQ abdominal pain (R10.11) Active confirmed Problem 931726338 Irritable bowel syndrome with constipation (K58.1) Active confirmed Problem 40861085 Diarrhea of presumed infectious origin (R19.7) Active [...] Insured Coverage Start Date Coverage End Date [facility] [address] [facility] [place] [phone] [id number] VEE GARBER Self - patient is the insured Medical (General) History Medical History History ICD Code Denies [place],DM,CVA,Lung disease,renal dise ase IBS-neg. celiac labs in [...]
[2025-03-08 13:31] LABS: MANUAL DIFF FLAG NO
[2025-03-08 13:58] LABS: Hematocrit 40.3 % (37.0-47.0); Hemoglobin 13.6 g/dl (12.0-16.0); Imm Gran Abs Auto 0.02 X10*3/uL (0.00-0.03); Imm Gran Pct Auto 0.3 % (0.0-0.4); Lymphocytes Absolute Auto 1.5 X10*3/uL (1.2-4.9); Mean Corpuscular HGB Conc 33.7 g/dl (31.0-35.0); Mean Corpuscular Hemoglobin 30.6 pg (27.0-33.0); Mean Corpuscular Volume 90.8 fL (80.0-98.0); NRBC Abs Auto 0.000 X10*3/uL (0.0-0.012); NRBC Pct Auto 0.0 /100WBC (0.0-0.2); Platelet Count 285 X10*3/uL (160-400); Red Blood Count 4.44 X10*6/uL (4.20-5.50); White Blood Count 6.6 X10*3/uL (4.8-10.8)
[2025-03-08 14:34] LABS: Alanine Aminotransferase 15 U/L (0-31); Anion Gap 13 (12-20); Aspartate Amino Transferase 21 U/L (5-31); Blood Urea Nitrogen 17 mg/dL (9-16); Calcium 9.7 mg/dL (8.4-10.2); Carbon Dioxide 23 mmol/L (22-29); Chloride 105 mmol/L (96-108); Cholesterol 247 mg/dL (<200); Estimated Glomerular Filt Rate > 60; HDL Cholesterol 56 mg/dL (>40); Iron 93 mcg/dL (30-160); Percent Iron Saturation 36 % (15-50); Potassium 3.9 mmol/L (3.3-5.1); Sodium 137 mmol/L (135-145); Total Iron Binding Capacity 260 mcg/dL (228-428); Triglycerides 88 mg/dL (<150); Unsaturated Iron Binding 167 ug/dL
== END 2025-03-08 10:16 | disposition home or self-care (01) ==
LOC: HO.HMGCLDS 10:15
PROVIDERS: PCP Internal Medicine; Visit Provider Internal Medicine
DX: Z00.01 Encounter for general adult medical examination with abnormal findings (principal); F33.40 Major depressive disorder, recurrent, in remission, unspecified; E55.9 Vitamin D deficiency, unspecified; R32 Unspecified urinary incontinence; Z86.2 Personal history of diseases of the blood and blood-forming organs and certain disorders involving the immune mechanism; Z13.6 Encounter for screening for cardiovascular disorders
CPT/HCPCS: 36415; 80048; 80061; 82306; 83540; 84450; 84460; 85025

== ENCOUNTER 2025-03-15 12:31 | Outpatient (REF) | payer OTHER, SELFPAY ==
[2025-03-16 07:53] LABS: Follicle Stimulating Hormone 9.9 mIU/mL
== END 2025-03-15 12:32 | disposition home or self-care (01) ==
LOC: HO.HMGCLDS 12:31
PROVIDERS: PCP Internal Medicine; Visit Provider Internal Medicine
DX: R45.86 Emotional lability (principal)
CPT/HCPCS: 36415; 83001; 84443

== ENCOUNTER 2025-03-28 10:25 | Outpatient (AMB) | payer OTHER, SELFPAY ==
--- NOTE | 2025-03-28 10:59 | A.OFFVIS_ITS ---
Intake Visit Reasons: BOTOX Intake Note: Patient is presents today for botox Urology Med:None Antibiotic Allergy: None Blood Thinner: None Cloth Bin Packer Required: No Accompanied by: Self / Same As Patient Allergies tree nut Allergy (Severe, Verified 03/28/25 11:07) Anaphylaxis hyoscyamine Allergy (Intermediate, Verified 03/28/25 11:07) itchy throat/ears/nose HPI Comments Details: 03/28/25-- Here for office Bladder botox injection 100 units. [facility] Medical History Skin lesion of face Hx of iron deficiency anemia History of abnormal uterine bleeding Recurrent major depression in remission Surgical History History of bilateral salpingectomy Hx of total hysterectomy Hx of cystoscopy History of hysteroscopy History of loop electrical excision procedure (LEEP) Family History Father Bipolar 1 disorder High cholesterol Diabetes mellitus Substance use disorder Mental health disorder Mother No problems noted. Social History Household Members: Family Housing: House Alcohol intake: current Patient Tobacco Use Status: Never used Tobacco e-Cigarette/Vaping Use: Never Used Substance Use Type: Marijuana service: No Current occupational status: unemployed Cognitive needs: No Hearing needs: No Vision needs: No Review of Systems Const All systems reviewed & are unremarkable except as noted in HPI and below Reports no additional complaints Eyes Reports no additional complaints ENT Reports no additional complaints Card Reports no additional complaints Resp Reports no additional complaints GI Reports no additional complaints Reports as per HPI Musc Reports no additional complaints Skin/Breast Reports system reviewed and no additional complaints, except as documented Neuro Reports no additional complaints Psych Reports no additional complaints Endo Reports no additional complaints Brandon/Lymph Reports no additional complaints Aller/Immun Reports no additional complaints Office Procedures Cystoscopy Consent Discussed risk and benefit or proposed procedure with the patient. Information consent for procedure given to the patient. Discussed technical aspects, risks, benefits and alternatives in full. Addressed all of the patient's questions and concerns regarding the procedure. The patient demonstrated knowledge and understanding. They wish to proceed with this procedure. Preparation The patient was prepped in the usual manner. A category consultant was present and in the room. Genitalia was prepped with betadine solution in a sterile manner. Lidocaine Jelly 2% was placed into the urethra and 16Fr flexible Olympus cystoscope was inserted into the meatus after adequate lubrication. Procedure PREOP DIAGNOSIS: OAB POSTOP DIAGNOSIS: OAB PROCEDURE: CYSTOSCOPY, BLADDER BOTOX INJECTION 100 UNITS SURGEON: James Calderon MD ANESTHESIA: Local Details of procedure: A 16 fr flexible cystoscope was placed transurethrally into the bladder. The right and left ureteral orifices were visualized. There were mild trabeculations noted. The Botox 100 units was mixed with 10 cc of normal saline and transurethral injections were placed into the posterior wall of the bladder. 1.0 mL placed at each injection site. The patient tolerated the procedure well. Complications: None EBL: minimal (<5 mL) Drains: none 12 fr straight cath used to drain bladder and instill botox cocktail: 20 mls bupivicaine 5 mls lidocaine 2% 2 lidocaine urojets 15 minute timer set after botox cocktail Botox 100 units reconstituted with 0.9% sodium chloride preservative free - to be injected by Dr. Becerra [id number] - Botox Injection, urethra or bladder DISPOSABLE SCOPE URO-N NEEDLE SCOPE Procedure code (CPT) selection complete Office Meds lidocaine HCl 2 % mucosal jelly in applicator Performing Provider: James Calderon MD Performing Location: [facility] Administered by: Sky Reddy LPN on 03/28/25 11:33 Dose Route Admin Location Dispensed Lot Number Expiration Date [facility] [employer] 10 mL intra-urethral 20 mL onabotulinumtoxinA 100 unit solution for injection Performing Provider: James Calderon MD Performing Location: [facility] Administered by: Sky Reddy LPN on 03/28/25 11:33 Dose Route Admin Location Dispensed Lot Number Expiration Date [facility] [employer] 100 unit transurethral bladder 100 units [id number] 04/06/27 8548-2403-96 [employer]/BOTOX Total Dispensed Waste 100 units 0 % naproxen 500 mg tablet Performing Provider: James Calderon MD Performing Location: [facility] Administered by: Sky Reddy LPN on 03/28/25 11:33 Dose Route Admin Location Dispensed Lot Number Expiration Date [employer] 500 mg PO 1 tab phenazopyridine 200 mg tablet Performing Provider: James Calderon MD Performing Location: [facility] Administered by: Sky Reddy LPN on 03/28/25 11:33 Dose Route Admin Location Dispensed Lot Number Expiration Date [employer] 200 mg PO 1 tab Assessment & Plan Assessment & Plan (1) Overactive bladder: Code(s): N32.81 - Overactive bladder Category: Medical Plan 03/28/25-- Here for office Bladder botox injection 100 units. Orders: Orders AMB Cystoscopy Today N32.81 - Overactive bladder Medications: New sulfamethoxazole-trimethoprim 800-160 mg (Bactrim DS) start 2 days prior to procedure and take until completed 1 tab PO BID 10 tabs 0RF 5 days phenazopyridine (Pyridium) start twice daily 2 days before procedure until completed 200 mg PO BID 6 tabs 0RF 6 doses Patient Instructions: The patient had an opportunity to ask questions regarding treatment plan. The patient expressed understanding and agreement with the above treatment plan. The patient is aware they should contact our office by phone for worsening of their current condition or the appearance of new symptoms. Compliance is encouraged with any medications and followup testing that is ordered. It is a privilege to be allowed the opportunity to participate in the urologic care of your patient. If you have any questions or concerns regarding treatment for the above conditions please do not hesitate to contact me. The office telephone contact is [phone]. This note is constructed in part using voice recognition software. While every effort has been made to ensure accuracy human resources receptionist errors may have been included. Yours sincerely, James Calderon MD Coding Level of Care Code Procedure Only Diagnoses Overactive bladder N32.81 CPT Codes Cystoscopy - CPT: 35933-Wzfhngvhtq ([id number]) Cystoscopy - CPT: 54556 - Botox Injection, urethra or bladder ([id number])
--- OUTSIDE RECORDS SUMMARY | 2025-03-28 12:31 | XMS_ITS | Clinical Summary ---
Author Organization [facility] [employer] [facility] lin Address [address] [place] [address] Care Team Providers Care Vehicle Check In Clerk Name Role Phone Pcp, No Primary Care Provider [phone] Social History Tobacco Use Types Packs/Day Years [...] 18 yrs or above (or HM Modifier)([facility]) 11/06/1995 Hepatitis C Virus Infection in Adolescents and Adults: Screening (or Modifier) ([facility]) 11/06/1995 [facility] Screening Reminder: Annually for all adults ([facility]) 11/06/1995 Tobacco Smoking Cessation: i n Adults excluding Women: Behavioral and Pharmacotherapy Interventions ([facility]) 11/06/1995 Cervical Cancer Screenin-65 yrs of age (or Modifier) 1998 Cervical Cancer Screening: P ap every 3 yrs pts age 21-65 1998 Cervical Cancer: Pap Screeni ng with Modifier timing ([facility]) 1998 Cervical Cancer: hrHPV alone or with cotesting Pap for Pts 30-65yrs screening every 5yrs ([facility]) 1998 Colorectal Cancer Screening 45 -75 Yrs (or HM Modifier) 2022 Colorectal Cancer: FLEXIBLE SIGMOIDOSCOPY Screening every 5 yrs 2022 Colorectal Cancer: Fecal Immunochemical Test (FIT) Annually [facility] 2022 Colorectal Cancer: High-sensitivity gFOBT Screening Annually [facility] 2022 Colorectal Cancer: Stool Cologuard Screening every 3 yrs 2022 Colorectal Cancer:CT Colonography Screening every 5 yrs 2022 Flu Vaccination: Yearly for ages 18mos through 64 years (or Modifier)([facility]) 01/04/2025 COVID-19 Vaccine Screening: Initial Series and Booster Status ([facility]) ( - 2023- season) 2025 DTaP/Tdap/Td Vaccines ([facility]) (3 - Td or Tdap) 06/17/2025 06/17/2015, 10/15/2012 Zoster/Shingles Vaccine Seri es Screening: Adults aged 18+ yrs (or HM Modifiers)([facility]) (1 of 2) 11/06/2027 Pneumococcal Vaccination Screening: Pts 0-19 & 19-49 yrs of age ([facility]) Aged Out No longer eligible based on patient's age to complete this topic Medical Devices Not on file Care Teams Vehicle Check In Clerk Relationship Specialty Start Date End Date Pcp, No PCP - General Family Medicine 08/07/20
== END 2025-03-28 12:11 | disposition home or self-care (01) ==
LOC: HO.HUSH 10:25
PROVIDERS: PCP Internal Medicine; Visit Provider Urology
DX: N32.81 Overactive bladder (principal)
CPT/HCPCS: 52287

== ENCOUNTER → 2025-03-28 10:25 | Outpatient (BNVA) | payer OTHER, SELFPAY | PROVIDERS: PCP Internal Medicine; Visit Provider Urology | DX: N32.81 Overactive bladder (principal) | CPT/HCPCS: 52287; 81003; J0585 ==

== ENCOUNTER 2025-04-15 09:57 | Outpatient (AMB) | payer OTHER, SELFPAY ==
--- NOTE | 2025-04-15 10:04 | AM.OFFVISNUR ---
Intake Visit Reasons: 2w UA/PVR Allergies tree nut Allergy (Severe, Verified 03/28/25 11:07) Anaphylaxis hyoscyamine Allergy (Intermediate, Verified 03/28/25 11:07) itchy throat/ears/nose Office Procedures Post Void Residual Post Residual Void Details: Patient presents to the office for UA and PVR s/p Botox procedure with Dr. Becerra. Patient urine has no signs of infection, patient bladder scanned for 0mls. Patient reporting improvement in symptoms, stated it took a little longer to feel relief from symptoms but she stated she is feeling much better after procedure. Patient to keep folllow up with Dr. Becerra as scheduled. Patient will call office with any questions or concerns 0 Post Void Residual (PVR): 0 [id number] Void Residual by ultrasound Results AMB Urinalysis, Automated UA Leukoctes 0 Ellen/uL Last Edit by Sky Reddy LPN on 04/15/25 10:18 UA Nitrite Negative Last Edit by Sky Reddy LPN on 04/15/25 10:18 UA Urobilinogen 0.2 mg/dL Last Edit by Syk Reddy LPN on 04/15/25 10:18 UA Protein 15 mg/dL Last Edit by Sky Reddy LPN on 04/15/25 10:18 UA pH 7.0 Last Edit by Sky Reddy LPN on 04/15/25 10:18 UA Blood 0 [place]/uL Last Edit by Sky Reddy LPN on 04/15/25 10:18 UA Specific [place] 1.010 Last Edit by Sky Reddy LPN on 04/15/25 10:18 UA Ketone Negative Last Edit by Sky Reddy LPN on 04/15/25 10:18 UA Bilirubin 0 mg/dL Last Edit by Sky Reddy LPN on 04/15/25 10:18 UA Glucose 0 mg/dL Last Edit by Sky Reddy LPN on 04/15/25 10:18 Assessment & Plan Assessment & Plan Orders: Orders AMB Urinalysis Automated Today N32.81 - Overactive bladder AMB Post Void Residual by ultrasound Today N32.81 - Overactive bladder Coding CPT Codes Post Residual Void - PVR CPT Code: 13544-Jhiz Void Residual by ultrasound ([id number])
--- OUTSIDE RECORDS SUMMARY | 2025-04-15 11:26 | XMS_ITS | Clinical Summary ---
Author Organization [facility] Address [address] [place] [address] Care Team Providers Care [place] Supervisor Name Role Phone Pcp, No Primary Care Provider [phone] Social History Tobacco Use Types Packs/Day Years Used Date Smoking Tobacco: Never Assessed Comments Unknown Sex and Gender Information Value Date Recorded Sex Assigned at Not on file Legal Sex Female 10:10 AM EST Gender Identity Not on file Sexual Orientation Not on file Plan of Treatment Not on file Medical Devices Not on file Care Teams [place] Supervisor Relationship Specialty Start Date End Date PcpGabrielle PCP - General Family Medicine 08/07/20
== END 2025-04-15 10:19 | disposition home or self-care (01) ==
LOC: HO.HUSH 09:58
PROVIDERS: PCP Internal Medicine; Visit Provider Urology
DX: N32.81 Overactive bladder (principal)

== ENCOUNTER → 2025-04-15 09:57 | Outpatient (BNVA) | payer OTHER, SELFPAY | PROVIDERS: PCP Internal Medicine; Visit Provider Urology | DX: N32.81 Overactive bladder (principal) | CPT/HCPCS: 51798; 81003 ==

== ENCOUNTER 2025-04-25 11:55 | Outpatient (REF) | payer OTHER, SELFPAY ==
--- NOTE | ~2025-04-25 | MM_ITS ---
EXAMINATION: MM SCREENING DIGITAL BREAST TOMOSYNTHESIS, BILATERAL CLINICAL INFORMATION: Screening. Asymptomatic. COMPARISON: Report from previous mammogram on February 05, 2009 is available for review. TECHNIQUE: Digital breast tomosynthesis is performed in mediolateral oblique and craniocaudal views along with computer-aided detection (CAD). Synthesized 2D images are generated from the tomosynthesis. FINDINGS: BREAST COMPOSITION: The breasts are heterogeneously dense, which may obscure small masses. BILATERAL BREASTS: No significant masses, suspicious calcifications or other abnormalities are seen in either breast. MM/MM tomosynthesis screening BI IMPRESSION: BILATERAL BREASTS: Negative, no mammographic evidence of malignancy. Normal interval follow-up is recommended in 12 months. ASSESSMENT: BI-RADS: Category 1: Negative RECOMMENDATION: Routine annual mammography screening. FOLLOW-UP: 1 year F/U This examination should not preclude the clinical evaluation of a suspicious palpable abnormality. This patient's information was entered into a reminder system with a target due date for their next mammogram. Electronically signed by: Consuelo Rob MD 04/28/2025 07:08 PM GARCÍA
== END 2025-04-25 11:56 | disposition home or self-care (01) ==
LOC: HO.MAMMO 11:55
PROVIDERS: PCP Internal Medicine; Visit Provider Internal Medicine
DX: Z12.31 Encounter for screening mammogram for malignant neoplasm of breast (principal)
CPT/HCPCS: 77063; 77067

== ENCOUNTER → 2025-04-25 12:15 | Outpatient (BNV) | payer OTHER, SELFPAY | PROVIDERS: PCP Internal Medicine; Visit Provider Radiology Body Imaging | DX: Z12.31 Encounter for screening mammogram for malignant neoplasm of breast (principal) | CPT/HCPCS: 77063; 77067 ==